=== PATIENT | male | born 1955 | race African-American/Black ===

== ENCOUNTER 2016-10-16 20:38 | Emergency (ER) | payer MEDICARE ==
[2016-02-19 07:02] VITALS: BMI 53.4
[~2016-10-16 20:38] MED LIST: ALDACTONE25 MG PO; ANUSOL-HC25 MG RC; CARAFATE1 G PO; HYDROCHLOROTHIA25 MG PO; HYDROCODON-ACE1 EAC7 PO; IPRAT-ALBUT 0.5-3 ML UPD; MOBIC7.5 MG PO; OMNICEF300 MG PO; PROAIR HFA8.5 GM INH; PROTONIX40 MG PO; SINEQUAN50 MG PO; SPIRIVA18 MCG INH; TOPROL XL100 MG PO; ULORIC40 MG PO; ZANTAC300 MG PO
[2016-10-16 21:06] LABS: BASOPHILS 0.4 % (0.0-2.0); EOSINOPHILS 0.8 % (0-7); HEMATOCRIT 38.2 % (42.0-54.0); HEMOGLOBIN 12.2 g/dL (13.5-17.5); IMMATURE GRANULOCYTES 0.1 % (0-5); LYMPHOCYTES 38.6 % (15-50); MCH 25.6 pg (26.0-34.0); MCHC 31.9 g/dL (31.0-37.0); MCV 80.3 fL (80.0-100.0); MEAN PLATELET VOLUME 10.7 fL (7.4-10.4); NEUTROPHILS 51.1 % (40-80); PLATELET COUNT 394 10x3/uL (130-400); RBC 4.76 10x6/uL (4.20-6.10); RDW 17.9 % (11.5-14.5); WBC 8.4 10x3/uL (4.8-10.8)
[2016-10-16 21:21] LABS: ALBUMIN 3.1 g/dL (3.4-5.0); ALKALINE PHOSPHATASE 152 U/L (46-116); ALT (SGPT) 51 U/L (10-68); BILIRUBIN - TOTAL 1.21 mg/dL (0.2-1.3); CALC OSMOLALITY 281 mosm/kg (275-300); CALCIUM 8.6 mg/dL (8.5-10.1); CARBON DIOXIDE 29.9 mmol/L (21.0-32.0); CHLORIDE - SERUM 103 mmol/L (98-107); CREATININE - SERUM 1.1 mg/dL (0.6-1.3); POTASSIUM - SERUM 3.5 mmol/L (3.5-5.1); PROTEIN - SERUM 7.6 g/dL (6.4-8.2); SODIUM 140 mmol/L (136-145); UREA NITROGEN 14 mg/dL (7-18); eGFR NON AFRICAN AMERICAN 73 mL/min (90-120)
[2016-10-16 21:22] LABS: GLUCOSE 127 mg/dL (74-106)
[2016-10-16 21:33] LABS: CHOL - HDL RATIO 1.4 ratio (2.3-4.9); CHOLESTEROL, TOTAL 105 mg/dL (0-200); CREATINE KINASE 534 UL (21-232); HDL CHOLESTEROL 76 mg/dL (32-96); MAGNESIUM - SERUM 1.9 mg/dL (1.8-2.4); PRO BNP 131 pg/mL (0-125); TRIGLYCERIDE 360 mg/dL (30-200); TROPONIN-I < 0.017 ng/mL (0.000-0.060)
[2016-10-17 00:50] LABS: UDS - AMPHET NEGATIVE QUAL (NEGATIVE); UDS - BARB NEGATIVE QUAL (NEGATIVE); UDS - BENZO NEGATIVE QUAL (NEGATIVE); UDS - COCAINE NEGATIVE QUAL (NEGATIVE); UDS - METH NEGATIVE QUAL (NEGATIVE); UDS - OPIATE NEGATIVE QUAL (NEGATIVE); UDS - PCP NEGATIVE QUAL (NEGATIVE); UDS - THC NEGATIVE QUAL (NEGATIVE)
[2016-10-17 01:59] LABS: CKMB 0.8 U/L (0.0-3.6); CREATINE KINASE 465 UL (21-232); TROPONIN-I 0.021 ng/mL (0.000-0.060)
== END 2016-10-17 02:15 | disposition home or self-care (01) ==
LOC: D.ER 20:38
PROVIDERS: Emergency Medicine
DX: R07.9 Chest pain, unspecified (principal); R00.0 Tachycardia, unspecified; J44.9 Chronic obstructive pulmonary disease, unspecified; G89.29 Other chronic pain; F32.9 Major depressive disorder, single episode, unspecified; K21.9 Gastro-esophageal reflux disease without esophagitis; I10 Essential (primary) hypertension

== ENCOUNTER 2016-11-14 10:32 | Emergency (ER) | payer MEDICARE ==
[2016-02-19 07:02] VITALS: BMI 53.4
[2016-11-14 11:12] LABS: BASOPHILS 0.3 % (0.0-2.0); EOSINOPHILS 0.9 % (0-7); HEMATOCRIT 35.8 % (42.0-54.0); HEMOGLOBIN 11.7 g/dL (13.5-17.5); IMMATURE GRANULOCYTES 0.4 % (0-5); LYMPHOCYTES 43.2 % (15-50); MCH 25.9 pg (26.0-34.0); MCHC 32.7 g/dL (31.0-37.0); MCV 79.2 fL (80.0-100.0); MEAN PLATELET VOLUME 9.9 fL (7.4-10.4); MONOCYTES 10.4 % (2-11); NEUTROPHILS 44.8 % (40-80); PLATELET COUNT 422 10x3/uL (130-400); RBC 4.52 10x6/uL (4.20-6.10); RDW 18.2 % (11.5-14.5); WBC 9.4 10x3/uL (4.8-10.8)
[2016-11-14 11:30] LABS: ALBUMIN 3.4 g/dL (3.4-5.0); ALKALINE PHOSPHATASE 180 U/L (46-116); ALT (SGPT) 36 U/L (10-68); CALC OSMOLALITY 279 mosm/kg (275-300); CALCIUM 8.8 mg/dL (8.5-10.1); CHLORIDE - SERUM 101 mmol/L (98-107); CREATININE - SERUM 1.1 mg/dL (0.6-1.3); GLUCOSE 109 mg/dL (74-106); POTASSIUM - SERUM 4.2 mmol/L (3.5-5.1); PROTEIN - SERUM 7.9 g/dL (6.4-8.2); SODIUM 138 mmol/L (136-145); UREA NITROGEN 21 mg/dL (7-18); eGFR NON AFRICAN AMERICAN 73 mL/min (90-120)
[2016-11-14 11:49] LABS: CHOL - HDL RATIO 2.7 ratio (2.3-4.9); CHOLESTEROL, TOTAL 199 mg/dL (0-200); CKMB 0.6 U/L (0.0-3.6); CREATINE KINASE 208 UL (21-232); HDL CHOLESTEROL 75 mg/dL (32-96); LDL CHOLESTEROL 56 mg/dL (0-100); LDL-HDL RATIO 0.7 ratio (1.5-3.5); PRO BNP 30 pg/mL (0-125); TRIGLYCERIDE 341 mg/dL (30-200); TROPONIN-I < 0.017 ng/mL (0.000-0.060)
== END 2016-11-14 19:50 | disposition home or self-care (01) ==
LOC: D.ER 10:32
PROVIDERS: Emergency Medicine
DX: I49.9 Cardiac arrhythmia, unspecified (principal); R07.9 Chest pain, unspecified; I10 Essential (primary) hypertension; F10.129 Alcohol abuse with intoxication, unspecified; J44.9 Chronic obstructive pulmonary disease, unspecified; K21.9 Gastro-esophageal reflux disease without esophagitis; I48.92 Unspecified atrial flutter

== ENCOUNTER → 2017-01-03 21:17 | Outpatient (CLI) | payer MEDICARE ==
[2016-02-19 07:02] VITALS: BMI 53.4
== END | disposition home or self-care (01) ==
LOC: D.LABREF 21:17
DX: Z20.5 Contact with and (suspected) exposure to viral hepatitis (principal)

== ENCOUNTER 2017-04-17 19:00 | Inpatient (IN) | payer MEDICARE ==
[~2017-04-17] VITALS: Ht 170.2 cm; Wt 159.1 kg
[2017-04-17 19:35] LABS: BASOPHILS 0.1 % (0-2); EOSINOPHILS 0.3 % (0-7); HEMATOCRIT 35.3 % (42.0-54.0); HEMOGLOBIN 11.2 g/dL (13.5-17.5); IMMATURE GRANULOCYTES 0.3 % (0-5); LYMPHOCYTES 15.8 % (15-50); MCH 24.7 pg (26.0-34.0); MCHC 31.7 g/dL (31.0-37.0); MCV 77.9 fL (80.0-100.0); MEAN PLATELET VOLUME 9.4 fL (7.4-10.4); MONOCYTES 11.2 % (2-11); NEUTROPHILS 72.3 % (40-80); PLATELET COUNT 439 10x3/uL (130-400); RBC 4.53 10x6/uL (4.20-6.10); RDW 18.2 % (11.5-14.5); WBC 10.1 10x3/uL (4.8-10.8)
[2017-04-17 20:04] LABS: ALBUMIN 3.3 g/dL (3.4-5.0); ALKALINE PHOSPHATASE 155 U/L (46-116); ALT (SGPT) 57 U/L (10-68); BILIRUBIN - TOTAL 0.61 mg/dL (0.2-1.3); CALC OSMOLALITY 283 mosm/kg (275-300); CALCIUM 8.7 mg/dL (8.5-10.1); CARBON DIOXIDE 27.7 mmol/L (21.0-32.0); CHLORIDE - SERUM 103 mmol/L (98-107); CREATININE - SERUM 1.8 mg/dL (0.6-1.3); GLUCOSE 120 mg/dL (74-106); POTASSIUM - SERUM 3.6 mmol/L (3.5-5.1); SODIUM 142 mmol/L (136-145); UREA NITROGEN 12 mg/dL (7-18); eGFR NON AFRICAN AMERICAN 41 mL/min (90-120)
[2017-04-17 20:15] LABS: CHOL - HDL RATIO 2.3 ratio (2.3-4.9); CHOLESTEROL, TOTAL 156 mg/dL (0-200); CKMB 0.9 U/L (0.0-3.6); CREATINE KINASE 409 UL (21-232); HDL CHOLESTEROL 69 mg/dL (32-96); LDL CHOLESTEROL 58 mg/dL (0-100); LDL-HDL RATIO 0.8 ratio (1.5-3.5); TRIGLYCERIDE 149 mg/dL (30-200)
[2017-04-17 20:20] LABS: TROPONIN-I < 0.017 ng/mL (0.000-0.060)
[2017-04-17 21:15] LABS: T4 THYROXINE 8.5 ug/dL (4.7-13.3); THYROID STIMULATING HORMONE 4.51 uIU/mL (0.36-3.74)
--- NOTE | 2017-04-17 22:21 | NUR ---
PT ARRIVED VIA STRETCHER FROM ER WITH DX UCAF. NO DISTRESS NOTED. WILL CONTINUE TO MONITOR.
[2017-04-17 22:47] VITALS: BP 143/85; Ht 170.2 cm; Wt 159.1 kg
[2017-04-17] MEDS ORDERED: ZYLOPRIM100 MG PO (23:09)
[2017-04-17] MEDS ORDERED: NEURONTIN 300300 MG PO (23:10)
[2017-04-17] MEDS ORDERED: ELAVIL25 MG PO (23:11)
[2017-04-17] MEDS ORDERED: AMOXICILLIN500 M1 PO (23:11)
[2017-04-17] MEDS ORDERED: CARDIZEM SR60 MG PO (23:11)
[2017-04-17] MEDS ORDERED: PERISOL437 ML MM (23:12)
--- NOTE | 2017-04-17 23:47 | NUR ---
ADMISSIONA ASSESSMENT, HISTORY AND HOME MED LIST COMPLETED. IV TO L HAND CARDIZEM AT 15CC/HR. VSS. A-FLUTTER PER CM HR 136. PT STATES L KNEE PAIN FROM GOUT FLARE-UP RSOLVING. PT CURRENTLY WATCHING TV. WILL CONTINUE TO MONITOR. SR UP X2, CALL LIGHT WITHIN REACH.
[2017-04-18] VITALS: BP 151/82
--- NOTE | 2017-04-18 02:28 | NUR ---
PT RESTING WITH EYES CLOSED. RESP EVEN AND REGULAR. CM DENOTES A-FLUTTER HR IN 110'S. WILL CONTINUE TO MONITRO.
--- NOTE | 2017-04-18 04:52 | NUR ---
A-FLUTTER PER CM HR 89. PT RESTING WITH EYES CLOSED. RESP EVEN AND REGULAR. SR UP X2, CALL LIGHT WITHIN REACH.
[2017-04-18 05:03] VITALS: BP 149/74
--- NOTE | 2017-04-18 06:21 | NUR ---
VSS THROUGHOUT NIGHT. PT DENIED ANY DISCOMFORT. NEEDS MET;WILL CONTINUE TO MONITOR.
[2017-04-18 08:00] VITALS: BP 123/64
[2017-04-18 12:00] VITALS: BP 112/78
--- NOTE | 2017-04-18 13:27 | NUR ---
ALERT AND ORIENTED X4. RESTING IN BED. LT HAND IV OUT LAYING ON BED TIP INTACT. RESITE IV LT HAND 22G SUCCESSFUL 1ST ATTEMPT. A-FLUTTER 140bpm ON TELEMETRY. CARDIZEM DRIP INFUSING ORDER @ 15mL/HR. DENIES ANY NEEDS. REFUSE SCDs. BED LOCKED AND LOW. CALL LIGHT IN REACH. TWO SIDERAILS UP.
[2017-04-18 16:00] VITALS: BP 109/70
--- NOTE | 2017-04-18 17:11 | NUR ---
ALERT AND ORIENTED X4. SITTING UP IN BED EATING. DECREASE CARDIZEM DRIP TO 5ml/HR PER 'S ORDER. FIRST DOSE OF MULTAQ 400mg GIVEN ORDERED. NOTIFY OF MEDICATION CHANGE PER REQUEST. DENIES ANY NEEDS. 98bpm A-FLUTTER ON TELEMETRY. BED LOCKED AND LOW. CALL LIGHT IN REACH. TWO SIDERAILS UP.
--- NOTE | 2017-04-18 19:43 | NUR ---
RESUMED CARE OF PT, LYING IN BED RESPIRATIONS EVEN AND UNLABORED ON 2LPM VIA NC. 96 FLUTTER ON TELEMETRY. LEFT HAND INFUSING CARDIZEM @ 5. COMPLAINTS OF PAIN TO FOOT AND BACK. CALL LIGHT IN REACH. WILL CONTINUE TO MONITOR. SEE NURSE ASSESSMENT.
--- NOTE | 2017-04-18 22:22 | NUR ---
NIGHT MEDS GIVEN, CALL LIGHT IN REACH. WILL CONTINUE TO MONITOR.
[2017-04-18 23:00] VITALS: BP 150/67
--- NOTE | 2017-04-19 00:45 | NUR ---
LYING IN BED WITH EYES CLOSED, CALL LIGHT IN REACH. WILL CONTINUE TO MONITOR.
--- NOTE | 2017-04-19 04:23 | NUR ---
CO FOUNDER AT BEDSIDE TO OBTAIN VITALS, CALL LIGHT IN REACH. WILL CONTINUE WITH PLAN OF CARE.
[2017-04-19 05:36] VITALS: BP 160/87
--- NOTE | 2017-04-19 06:37 | NUR ---
NO CHANGES FROM PREVIOUSE ASSESSMENT, CALL LIGHT IN REACH.
[2017-04-19 08:00] VITALS: BP 150/65
[2017-04-19 08:05] LABS: BASOPHILS 0 % (0-2); EOSINOPHILS 0 % (0-7); HEMATOCRIT 33.7 % (42.0-54.0); HEMOGLOBIN 10.5 g/dL (13.5-17.5); IMMATURE GRANULOCYTES 0.4 % (0-5); LYMPHOCYTES 6.6 % (15-50); MCH 24.6 pg (26.0-34.0); MCHC 31.2 g/dL (31.0-37.0); MCV 78.9 fL (80.0-100.0); MEAN PLATELET VOLUME 9.2 fL (7.4-10.4); MONOCYTES 5.7 % (2-11); NEUTROPHILS 87.3 % (40-80); PLATELET COUNT 388 10x3/uL (130-400); RBC 4.27 10x6/uL (4.20-6.10); RDW 18.4 % (11.5-14.5); WBC 18.6 10x3/uL (4.8-10.8)
[2017-04-19 08:23] LABS: BILIRUBIN - TOTAL 0.33 mg/dL (0.2-1.3); CALCIUM 8.9 mg/dL (8.5-10.1); CARBON DIOXIDE 30.3 mmol/L (21.0-32.0); PROTEIN - SERUM 7.7 g/dL (6.4-8.2)
[2017-04-19 08:26] LABS: ANION GAP 10.9 mmol/L (8-16); CREATININE - SERUM 1.2 mg/dL (0.6-1.3); POTASSIUM - SERUM 4.2 mmol/L (3.5-5.1)
[2017-04-19 11:55] VITALS: BP 147/90
--- NOTE | 2017-04-19 13:34 | NUR ---
LYING QUIETLY WITH EYES CLOSED. CARDIZEN IN FUSING WELL. SR UP WITH CALL LIGHT IN REACH
--- NOTE | 2017-04-19 15:54 | NUR ---
EYES CLOSED. NO DISTRESS NOTED. RESP REG AND NON LABORED. TELEMERTY SHOWS FLUTTER. WILL MONITOR
[2017-04-19 16:00] VITALS: BP 140/74
--- NOTE | 2017-04-19 20:18 | NUR ---
INITIAL ROUNDS, PT RESTING IN BED WITH VISITORS X 2 AT BEDSIDE. TELEMETRY FLUTTER. O2 @ 2L/NC WITH NONLABORED RESPIRATIONS. CARDIZEM DRIP AT 5ML/HR TO LEFT HAND. SEE ASSESSMENT, MONITOR AND CPOC.
[2017-04-19 21:01] VITALS: BP 168/77
[2017-04-20 01:04] VITALS: BP 154/87
--- NOTE | 2017-04-20 03:45 | NUR ---
0226 MEDICATED WITH DILAUDID 1 MG SIVP FOR GENERALIZED PAIN/DISCOMFORT AFTER HAVING RECIEVED A BATH WITH THAI MASSEUR ASSISTANCE. HE IS NOW RESTING IN BED WITH EYES CLOSED. NO FURTHER NEEDS VOICED. CPOC.
[2017-04-20 04:18] VITALS: BP 130/80
[2017-04-20 04:36] LABS: BASOPHILS 0.1 % (0-2); EOSINOPHILS 0.2 % (0-7); HEMATOCRIT 34.1 % (42.0-54.0); HEMOGLOBIN 10.5 g/dL (13.5-17.5); LYMPHOCYTES 17.9 % (15-50); MCH 24.5 pg (26.0-34.0); MCHC 30.8 g/dL (31.0-37.0); MCV 79.5 fL (80.0-100.0); MEAN PLATELET VOLUME 9.6 fL (7.4-10.4); MONOCYTES 8.2 % (2-11); NEUTROPHILS 72.6 % (40-80); PLATELET COUNT 390 10x3/uL (130-400); RBC 4.29 10x6/uL (4.20-6.10); RDW 18.4 % (11.5-14.5); WBC 14.5 10x3/uL (4.8-10.8)
[2017-04-20 04:52] LABS: ALBUMIN 2.9 g/dL (3.4-5.0); ANION GAP 9.9 mmol/L (8-16); BILIRUBIN - TOTAL 0.23 mg/dL (0.2-1.3); CALCIUM 8.5 mg/dL (8.5-10.1); CARBON DIOXIDE 29.8 mmol/L (21.0-32.0); CREATININE - SERUM 1.3 mg/dL (0.6-1.3); POTASSIUM - SERUM 3.7 mmol/L (3.5-5.1); PROTEIN - SERUM 7.2 g/dL (6.4-8.2)
[2017-04-20 08:00] VITALS: BP 127/81
--- NOTE | 2017-04-20 10:51 | NUR ---
ALERT AND ORIENTED X4. RESTING IN BED. LT HAND IV INFILTRATED. DC LT HAND IV TIP INTACT. MENTAL HEALTH SPECIALIST RESITE IV 20G TO RT HAND. CARDIZEM DRIP CONTINUED INFUSING ORDERED. A-FLUTTER 100bpm ON TELEMETRY. DENIES ANY NEEDS. BED LOCKED AND LOW. CALL LIGHT IN REACH. TWO SIDERAILS UP. REFUSE SCDs.
[2017-04-20 12:00] VITALS: BP 141/68
--- NOTE | 2017-04-20 13:15 | NUR ---
Nutrition note: Provided pt with printed weight loss diet information. Pt is on the phone and did not want to talk at this time. RDN following.
[2017-04-20 16:00] VITALS: BP 150/63
--- NOTE | 2017-04-20 17:02 | NUR ---
ALERT AND ORIENTED X4. RESTING IN BED. PAIN MANAGEMENT FOR CHRONIC LEG PAIN CONTINUED. CARDIZEM INFUSING AT 5mL/HR. A-FLUTTER 123bpm ON TELEMETRY. DENIES ANY NEEDS. BED LOCKED AND LOW. CALL LIGHT IN REACH. TWO SIDERAILS UP.
--- NOTE | 2017-04-20 19:35 | NUR ---
ASSESSMENT COMPLETE, A&O. RESPERATIONS EVEN ON AT 2 LITER VIA NC. IV TO RIGHT HAND WITH CARDIZEM INFUSING AT 5 CC/HR. SITE C/D/I. PT DENIES PAIN OR NEEDS, BED LOW, CL IN REACH.
--- NOTE | 2017-04-20 20:22 | NUR ---
READING GLASSES GIVEN AT PT REQUEST.
--- NOTE | 2017-04-20 22:14 | NUR ---
HS MEDS GIVEN WITH FRESH ICE WATER, PT DENIES PAIN OR NEEDS, BED LOW, CL IN REACH.
--- NOTE | 2017-04-20 23:46 | NUR ---
CULTURE ROOM WORKER AT BEDSIDE TO OBTAIN VITALS, CALL LIGHT IN REACH. WILL CONTINUE WITH PLAN OF CARE.
[2017-04-21] VITALS: BP 170/85
--- NOTE | 2017-04-21 02:55 | NUR ---
RESTING WITH EYES CLOSED, RESPERATIONS EVEN, NO S/S DISTRESS NOTED.
--- NOTE | 2017-04-21 03:21 | NUR ---
DILAUDID 1 MG GIVEN FOR C/O PAIN TO BACK, RATES PAIN AT AN 8 PAIN SCALE.
[2017-04-21 04:00] VITALS: BP 139/70
[2017-04-21] MEDS ORDERED: MULTAQ400 MG PO (07:36)
[2017-04-21] MEDS ORDERED: XARELTO20 MG PO (07:37)
--- NOTE | 2017-04-21 07:39 | NUR ---
AM ROUNDS- PT IN BED, WATCHING TV, DENIES ANY NEEDS AT THIS TIME. CALL LIGHT IN REACH, RT HAND IV INFUSING CARDIZEM AT 5CC/HR. BED LOW AND WHEELS LOCKED, BED RAILS X2, NAD NOTED, WILL CONTINUE TO MONITOR.
--- NOTE | 2017-04-21 07:58 | NUR ---
ONE TIME ORDER FOR STACEY PER DR. COY.
--- NOTE | 2017-04-21 08:14 | NUR ---
AM MEDS GIVEN, PT IN BED, EATING BREAKFAST, DENIES ANY NEEDS AT THIS TIME. CALL LIGHT IN REACH, NAD NOTED, WILL CONTINUE TO MONITOR.
[2017-04-21 08:22] VITALS: BP 137/70
--- NOTE | 2017-04-21 10:47 | NUR ---
Patient Name: CALOS HAAS Admission Status: ER Accout number: [id number] Admission Date: 04-18-2017 : 1955 Admission Diagnosis:CHEST PAIN, UNSPECIFIED Attending: LEO Current LOS: 3 Anticipated DC Date: 04-21-2017 Planned Disposition: Home Primary Insurance: [facility] Discharge Planning Comments: * Is the patient Alert and Oriented? Yes 0 * How many steps to enter\exit or inside your home? 12 0 * PCP DR. COY 0 * Pharmacy [facility] 0 * Preadmission Environment Home with Family 0 * ADLs Independent 0 * Equipment Other 0 * Other Equipment BACK, SHOULDER AND KNEE BRACE - [employer]IL [employer] NO LOCAL MEDICAL EQUIPMENT PROVIDER PREFERENCE 0 * List name and contact numbers for known caregivers / representatives who currently or will assist patient after discharge: KE OWUSU, SISTER, LOTUS SAUER, SIG. OTHER, 0 * Community resources currently utilized None 0 * Please name any agencies selected above. NONE 0 * Additional services required to return to the preadmission environment? No 0 * Can the patient safely return to the preadmission environment? Yes 0 * Has this patient been hospitalized within the prior 30 days at any hospital? No 0 CM MET WITH PT IN ROOM TO DISCUSS DISCHARGE PLANNING AND NEEDS. PT REPORTS LIVING AT HOME INDEPENDENTLY WITH SIGNIFICANT OTHER AND TWO SMALL CHILDREN. PT HAS NO MEDICAL EQUIPMENT AND NO OUTSIDE SERVICES ASSISTING IN THE HOME. PT HAS RECEIVED A BACK, SHOULDER AND KNEE BRACE PAID FOR BY MEDICARE, HE WILL START USING THEM AFTER GETTING HOME FROM HOSPITAL. CM DISCUSSED AVAILABILITY OF HOME HEALTH, REHAB SERVICES AND MEDICAL EQUIPMENT. PT DENIES DISCHARGE NEEDS, REPORTS HIS SIGNIFICANT OTHER WILL PICK HIM UP FOR DISCHARGE HOME. IMPORTANT MESSAGE FROM MEDICARE PROVIDED AND EXPLAINED. PT REPORTS HIS HOME SITUATION HAS STABLALIZED AND HE IS NOT USING DRUGS OR ALCOHOL. PT REPORTS HE WILL START TO EXERCISE SINCE RECEIVING HIS BRACES AND TRY TO GET HIS WEIGHT DOWN. NO NEED IDENTIFIED BY CM AT THIS TIME. Casket Coverer: Van Hadley
--- NOTE | 2017-04-21 11:02 | NUR ---
PROVIDED VERBAL AND WRITTEN DISHCHARGE ORDER TO PT, PT VERBALIZED UNDERSTANDING REGARING DISCHAGE TEACHING. D/C RT HAND IV, TIP INTACT. MONITOR TAKEN OFF AND TAKEN TO BLOCK ENGRAVER. PT WILL NOTIFY NURSE OR CHIEF OF FIELD OPERATIONS WHEN READY FOR WHEELCHAIR, NAD NOTED, WILL CONTINUE TO MONITOR.
--- NOTE | 2017-04-21 11:47 | NUR ---
PT LEFT UNIT VIA AMBULATORY, ACCOMPANIED BY FAMILY. NAD NOTED.
== END 2017-04-21 11:48 | disposition home or self-care (01) | DRG 310 ==
LOC: D.ER 19:00 → D.M2 21:09 → OBSVTIME 21:09 → D.M2 04-18 08:17
PROVIDERS: Emergency Medicine; ADMIT Family Medicine
DX: I48.92 Unspecified atrial flutter (principal); I48.91 Unspecified atrial fibrillation; I47.1 Supraventricular tachycardia; J44.9 Chronic obstructive pulmonary disease, unspecified; I10 Essential (primary) hypertension; F32.9 Major depressive disorder, single episode, unspecified; F41.9 Anxiety disorder, unspecified

== ENCOUNTER 2017-05-27 13:03 | Inpatient (IN) | payer MEDICARE ==
[~2017-05-27] VITALS: Ht 170.2 cm; Wt 159.1 kg
--- NOTE | ~2017-05-27 | DS ---
PATIENT:CALOS HAAS :[birth year] MEDICAL RECORD: [id number] DISCHARGE SUMMARY ADMISSION DATE: 05/28/17 DISCHARGE DATE: 05/29/17 DATE OF ADMISSION: 05/28/2017 DATE OF DISCHARGE: 05/29/2017 ADMISSION DIAGNOSES: Atrial fibrillation with rapid ventricular response, chronic back pain and anemia, unclear etiology. DISCHARGE DIAGNOSES: Atrial fibrillation with rapid ventricular response, chronic back pain and anemia, stable, unclear etiology, we will workup as outpatient. HOSPITAL COURSE: The patient was admitted to the Emergency Room. He came in for back pain and a reported gout flare, was found to be tachycardic with an irregularly irregular rhythm, was admitted, cardiology consulted, his medications were adjusted. He has a history of chronic AFib. He is on anticoagulation as well as antiarrhythmics. Medications were adjusted by cardiology. Rate is now controlled. He is anxious to go home. Discussed case with Dr. Gama, cardiology, agrees with the discharge. The patient will followup with Dr. Ferrer, his primary care physician, on Tuesday. He is feeling much better. PHYSICAL EXAMINATION: VITAL SIGNS ON DISCHARGE: Temperature 97.9, heart rate 98, respirations 18, blood pressure 165/98, has been in the 140s, and O2 sats 96% on room air. GENERAL: Alert, oriented, in no distress. HEART: Irregularly irregular, rate controlled. LUNGS: Clear. ABDOMEN: Soft, morbidly obese. Bowel sounds positive. EXTREMITIES: Present times 4. NEUROLOGIC: Intact. The patient again is anxious for discharge. He is discharged in stable and improved condition. MEDICATIONS: Per med rec. He will follow up with Dr. Ferrer on Tuesday. Return to the ER with worsening symptoms. TRANSINT:[id number] Voice Confirmation ID: [id number] DOCUMENT ID: [id number] SAUL ROBERTSON DO CC: [id number] DICTATION DATE: 05/29/17 1305 SECURITY SME: 05/29/172 DIS IN 05/29/17 [id number] [place] [address]
[~2017-05-27 13:03] MED LIST changes: +AMOXICILLIN500 M1 PO; +CARDIZEM SR60 MG PO; +ELAVIL25 MG PO; +MULTAQ400 MG PO; +NEURONTIN 300300 MG PO; +PERISOL437 ML MM; +XARELTO20 MG PO; +ZYLOPRIM100 MG PO
[2017-05-27 14:48] LABS: BASOPHILS 0.2 % (0-2); EOSINOPHILS 1.5 % (0-7); HEMOGLOBIN 9.8 g/dL (13.5-17.5); IMMATURE GRANULOCYTES 0.4 % (0-5); MCH 23.7 pg (26.0-34.0); MCHC 30.6 g/dL (31.0-37.0); MCV 77.3 fL (80.0-100.0); MEAN PLATELET VOLUME 10.4 fL (7.4-10.4); MONOCYTES 13.7 % (2-11); NEUTROPHILS 65.2 % (40-80); PLATELET COUNT 365 10x3/uL (130-400); RBC 4.14 10x6/uL (4.20-6.10); RDW 19.5 % (11.5-14.5); WBC 10.8 10x3/uL (4.8-10.8)
[2017-05-27 15:03] LABS: INR 2.98 (0.85-1.17); PROTIME 31.2 SECONDS (11.6-15.0)
[2017-05-27 15:04] LABS: D-DIMER-QUANTITATIVE 0.34 ug/mLFEU (0.20-0.54)
[2017-05-27 15:22] LABS: ALBUMIN 3.2 g/dL (3.4-5.0); ALKALINE PHOSPHATASE 115 U/L (46-116); ALT (SGPT) 23 U/L (10-68); BILIRUBIN - TOTAL 0.19 mg/dL (0.2-1.3); CALC OSMOLALITY 273 mosm/kg (275-300); CALCIUM 8.3 mg/dL (8.5-10.1); CHLORIDE - SERUM 101 mmol/L (98-107); CREATININE - SERUM 1.4 mg/dL (0.6-1.3); GLUCOSE 102 mg/dL (74-106); POTASSIUM - SERUM 3.8 mmol/L (3.5-5.1); PROTEIN - SERUM 7.3 g/dL (6.4-8.2); SODIUM 137 mmol/L (136-145); UREA NITROGEN 12 mg/dL (7-18); eGFR NON AFRICAN AMERICAN 55 mL/min (90-120)
[2017-05-27 15:36] LABS: CKMB 0.3 U/L (0.0-3.6); CREATINE KINASE 256 UL (21-232); PRO BNP 102 pg/mL (0-125); THYROID STIMULATING HORMONE 1.13 uIU/mL (0.36-3.74); TROPONIN-I < 0.017 ng/mL (0.000-0.060)
[2017-05-27 20:18] LABS: APPEARANCE CLEAR (CLEAR); BILIRUBIN NEGATIVE (NEGATIVE); COLOR YELLOW (YELLOW); GLUCOSE NEGATIVE (NEGATIVE); KETONE NEGATIVE (NEGATIVE); LEUKOCYTE ESTERASE NEGATIVE (NEGATIVE); NITRITE NEGATIVE (NEGATIVE); PROTEIN NEGATIVE (NEGATIVE); SPECIFIC GRAVITY 1.015 (1.005-1.020); UROBILINOGEN NORMAL (NORMAL)
[2017-05-27 20:28] LABS: UDS - AMPHET NEGATIVE QUAL (NEGATIVE); UDS - BARB NEGATIVE QUAL (NEGATIVE); UDS - BENZO NEGATIVE QUAL (NEGATIVE); UDS - COCAINE NEGATIVE QUAL (NEGATIVE); UDS - METH NEGATIVE QUAL (NEGATIVE); UDS - OPIATE NEGATIVE QUAL (NEGATIVE); UDS - PCP NEGATIVE QUAL (NEGATIVE); UDS - THC NEGATIVE QUAL (NEGATIVE)
[2017-05-27 22:45] VITALS: BP 142/90; Ht 170.2 cm; Wt 159.1 kg
[2017-05-28 04:00] VITALS: BP 121/61
[2017-05-28 08:00] VITALS: BP 181/75
--- NOTE | 2017-05-28 08:20 | NUR ---
ASSESSMENT DONE. DENIES NEEDS.
--- NOTE | 2017-05-28 10:21 | NUR ---
IV PATENT. CALL LIGHT IN REACH. WILL CONT. PLAN OF CARE.
[2017-05-28 12:00] VITALS: BP 156/78
[2017-05-28 16:00] VITALS: BP 147/78
--- NOTE | 2017-05-28 16:59 | NUR ---
WITHOUT CHANGES OR DISTRESS NOTED AT THIS TIME. DENIES NEEDS.
--- NOTE | 2017-05-28 18:31 | HP ---
PATIENT: CALOS HAAS MEDICAL RECORD: [id number] ACCOUNT: [id number] LOCATION:[address] : [birth year] ADMISSION DATE: 05/28/17 HISTORY AND PHYSICAL EXAMINATION HISTORY OF PRESENT ILLNESS: A 61-year-old -Lib[place] male presented to the Emergency Room with exacerbation of gout. He also has a history of chronic back pain, sees pain management. He is on hydrocodone for pain management. He has a history of paroxysmal atrial fibrillation, received pain medicine in the ER with anticipation for discharge, was found to be in AFib with RVR. Denied chest pain, was admitted for cardiac bowel and conversion. PAST MEDICAL HISTORY: Significant for paroxysmal atrial fibrillation, chronic back pain, gout, COPD, neuropathy, hypertension, GERD. CURRENT MEDICATIONS: Albuterol inhaler, Xarelto, Diltiazem SR 60 mg q.8 hours, Multaq 400 mg b.i.d., Elavil 25 mg at bedtime, Neurontin 300 mg t.i.d., Bird In Hand 325 mg q.8 hours p.r.n., hydrochlorothiazide 25 mg daily, Peroxyl mouthwash, Protonix 40 mg daily, Anusol suppositories p.r.n. hemorrhoids, allopurinol 100 mg daily. REVIEW OF SYSTEMS: GENERAL: No reported change in weight or appetite. HEENT: No cephalgia, visual changes, tinnitus, epistaxis or dysphagia. CARDIOVASCULAR: Atrial fibrillation with rapid ventricular response, recurrent episodes. PULMONARY: Denies hemoptysis, denies night sweats. History of COPD, controlled with medications. GASTROINTESTINAL: Denies hematemesis, hematochezia or melena. GENITOURINARY: Denies dysuria. MUSCULOSKELETAL: Recurrent gout flares. PHYSICAL EXAMINATION: VITAL SIGNS: Temperature 99, blood pressure 156/78, heart rate 115 and regular, respirations 18, O2 sats 95%. GENERAL: Alert and oriented, in no present distress. HEENT: Head is normocephalic, atraumatic. Eyes: Pupils are equally round and reactive to light and accommodation. Extraocular muscles intact. Conjunctiva was not injected. Ears: Canals patent, TMs are intact. Nose: Nares patent without drainage. Throat: No erythema, no exudates. NECK: Supple. No lymphadenopathy, no JVD. HEART: Irregular, irregular. LUNGS: Clear to auscultation bilaterally. Breathing is nonlabored. ABDOMEN: Soft, obese, nontender. Bowel sounds all 4 quadrants. EXTREMITIES: Present times 4. Trace edema. No erythema. Diffuse tenderness. LABORATORY DATA: Urine drug screen negative. Urinalysis yellow, clear, normal UA. CBC: White count 10.8, hemoglobin 9.8, hematocrit 32, platelets 365. PT is 31.2. INR is 2.98. D-dimer is 0.34. Chemistry shows sodium of 137, potassium 3.8, chloride 101, bicarb 31, BUN 12, creatinine 1.4. AST 22, ALT 23, alkaline phosphatase 115. CK 256, CK-MB 0.3, troponin less than 0.017. ProBNP 102. TSH is 1.13. IMAGING DATA: Venous Doppler is negative lower extremity. Chest x-ray: Heart size is normal, increased interstitial markings bilaterally. No other HISTORY AND PHYSICAL [id number] CALOS HAAS RAY significant changes. ASSESSMENT AND PLAN: 1. Atrial fibrillation with rapid ventricular response. Cardiology consulted. Cardizem drip. 2. Chronic back pain reported gout flare. We will check uric acid. Continue hydrocodone 5 mg q.8 hours p.r.n. 3. Anemia with hemoglobin of 9.8, unclear etiology. Check stool for occult blood. Monitor. Supportive care. TRANSINT:[id number] Voice Confirmation ID: [id number] DOCUMENT ID: [id number] SAUL ROBERTSON DO at 1831 CC: [id number] DICTATION DATE: 05/28/17 1341 OPTICAL WORKER: 05/28/17 1640 ADM IN [id number] [place] [address]
[2017-05-28 19:00] VITALS: BP 107/62
--- NOTE | 2017-05-28 20:16 | NUR ---
INITIAL ROUNDS COMPLETED AT 1910 HRS. PT DENIED ANY DSIOCMFORT. ASESSMENT COMPLETED AT 1945HRS. A-FLUTTER PER CM HR 122. IV TO R HAND WITH CARDIZEM AT 10CC/HR. IV PATENT. 1+ PEDAL EDEMA NOTED. WILL CONTINUE TO MONITOR. SR UP X2, CALL LIGHT WITHINREACH.
--- NOTE | 2017-05-28 22:10 | NUR ---
PM MEDS GIVNE. NORCO 5/325 PO GIVEN AT THAT TIME FOR C/O CHRONIC BACK PAIN. PT CURRENT WATCHNG TV. NO DISTRESS NOTED BUT PT STATES PAIN LEVEL /10. WILL CONTINUE TO MONITOR. SR UP X2, CALL LIGHT WITHIN REACH.
[2017-05-29] VITALS: BP 164/74
--- NOTE | 2017-05-29 00:06 | NUR ---
PT AWAKE; NO DISTRESS NOTED. WILL CONTINUE TO MONITOR.
--- NOTE | 2017-05-29 02:07 | NUR ---
PT RESTING WITH EYES CLOSED. RESP EVEN AND REGULAR. SR UP X2, CALL LIGHT WITHIN REACH.
[2017-05-29 04:00] VITALS: BP 156/83
--- NOTE | 2017-05-29 04:03 | NUR ---
PT RESTING WITH EYES CLOSED. RESP EVEN AND REGULAR. SR UP X2, CALL LIGHT WITHIN REACH.
[2017-05-29 05:33] LABS: BASOPHILS 0.1 % (0-2); EOSINOPHILS 0 % (0-7); HEMATOCRIT 31.2 % (42.0-54.0); HEMOGLOBIN 9.6 g/dL (13.5-17.5); IMMATURE GRANULOCYTES 0.9 % (0-5); LYMPHOCYTES 12.8 % (15-50); MCH 23.4 pg (26.0-34.0); MCHC 30.8 g/dL (31.0-37.0); MCV 76.1 fL (80.0-100.0); MEAN PLATELET VOLUME 9.9 fL (7.4-10.4); MONOCYTES 9.7 % (2-11); NEUTROPHILS 76.5 % (40-80); PLATELET COUNT 430 10x3/uL (130-400); RDW 19.3 % (11.5-14.5)
[2017-05-29 05:42] LABS: WBC 16.2 10x3/uL (4.8-10.8)
[2017-05-29 05:59] LABS: INR 1.25 (0.85-1.17); PROTIME 15.6 SECONDS (11.6-15.0)
[2017-05-29 06:01] LABS: ANION GAP 9.6 mmol/L (8-16); CALCIUM 8.6 mg/dL (8.5-10.1); CARBON DIOXIDE 29.3 mmol/L (21.0-32.0); CREATININE - SERUM 1.2 mg/dL (0.6-1.3); MAGNESIUM - SERUM 2.2 mg/dL (1.8-2.4); POTASSIUM - SERUM 3.9 mmol/L (3.5-5.1)
--- NOTE | 2017-05-29 06:18 | NUR ---
VSS THROUGHOUT NIGHT. A-FLUTTER PER CM. PT STATED NORCO HELPED CONTROL CHRONIC BACK PAIN. NEEDS MET; WILL CONTINUE TO MONITOR.
--- NOTE | 2017-05-29 07:17 | NUR ---
ASSESSMENT DONE. DENIES NEEDS.
[2017-05-29 08:00] VITALS: BP 165/98
--- NOTE | 2017-05-29 09:38 | NUR ---
RESTS WITH EYES CLOSED. IV PATENT. CALL LIGHT IN REAC. WILL CONT. PLAN OF CARE.
[2017-05-29] MEDS ORDERED: CARDIZEM60 MG PO (12:57)
--- NOTE | 2017-05-29 14:05 | NUR ---
DC GIVEN TO PT
--- NOTE | 2017-05-29 14:28 | NUR ---
DC HOME PER PERSONAL CAR
== END 2017-05-29 14:28 | disposition home or self-care (01) | DRG 310 ==
LOC: D.ER 13:03 → OBSVTIME 20:23 → D.M2 20:23
PROVIDERS: Family Medicine; Nurse Practitioner Family; ADMIT Family Medicine
DX: I48.92 Unspecified atrial flutter (principal); Z79.01 Long term (current) use of anticoagulants; I48.2 Chronic atrial fibrillation; G89.29 Other chronic pain; M54.9 Dorsalgia, unspecified; D64.9 Anemia, unspecified; R00.0 Tachycardia, unspecified; J44.9 Chronic obstructive pulmonary disease, unspecified; K21.9 Gastro-esophageal reflux disease without esophagitis; G62.9 Polyneuropathy, unspecified; I10 Essential (primary) hypertension

== ENCOUNTER 2017-07-17 07:25 | Inpatient (IN) | payer MEDICARE ==
[~2017-07-17 07:25] MED LIST changes: +AMITRIPTYLINE H50 MG PO; +CARDIZEM60 MG PO; -ELAVIL25 MG PO
[2017-07-17 07:53] LABS: BASOPHILS 0.2 % (0-2); EOSINOPHILS 0.2 % (0-7); HEMOGLOBIN 9.7 g/dL (13.5-17.5); IMMATURE GRANULOCYTES 0.3 % (0-5); LYMPHOCYTES 9.3 % (15-50); MCH 21.3 pg (26.0-34.0); MCHC 31.3 g/dL (31.0-37.0); MCV 68.1 fL (80.0-100.0); MONOCYTES 7.3 % (2-11); NEUTROPHILS 82.7 % (40-80); PLATELET COUNT 619 10x3/uL (130-400); RBC 4.55 10x6/uL (4.20-6.10); RDW 20.8 % (11.5-14.5); WBC 12.3 10x3/uL (4.8-10.8)
[2017-07-17 08:04] LABS: ALBUMIN 3.2 g/dL (3.4-5.0); ALKALINE PHOSPHATASE 163 U/L (46-116); ALT (SGPT) 50 U/L (10-68); BILIRUBIN - TOTAL 0.54 mg/dL (0.2-1.3); CALC OSMOLALITY 270 mosm/kg (275-300); CALCIUM 8.2 mg/dL (8.5-10.1); CARBON DIOXIDE 19.6 mmol/L (21.0-32.0); CHLORIDE - SERUM 97 mmol/L (98-107); CREATININE - SERUM 1.3 mg/dL (0.6-1.3); POTASSIUM - SERUM 4.2 mmol/L (3.5-5.1); PROTEIN - SERUM 7.9 g/dL (6.4-8.2); SODIUM 136 mmol/L (136-145); UREA NITROGEN 15 mg/dL (7-18); eGFR NON AFRICAN AMERICAN 60 mL/min (90-120)
[2017-07-17 08:06] LABS: GLUCOSE 69 mg/dL (74-106)
[2017-07-17 08:43] LABS: CKMB 2.2 U/L (0.0-3.6); CREATINE KINASE 765 UL (21-232); PRO BNP 79 pg/mL (0-125)
--- NOTE | 2017-07-17 10:00 | NUR ---
RECEIVED PT TO ROOM 2121 FROM ER AAOX4 RESP NOTED SLIGHTLY SOB O2 ON 2LPM NC SKIN W/D COLOR WNL SALINE LOCK INTACT TO RAC WITHOUT REDNESS OR EDEMA OCCLUSIVE DRSG INTACT HR 140s DENIES ANY PAIN AT THIS TIME
[2017-07-17] MEDS ORDERED: ULORIC40 MG PO (10:35)
[2017-07-17] MEDS ORDERED: MOBIC7.5 MG PO (10:35)
[2017-07-17] MEDS ORDERED: LOTRISONE CREAM45 GM TOPICAL (10:35)
[2017-07-17 10:43] VITALS: BP 142/80; BMI 54.6
[2017-07-17 12:42] VITALS: BP 175/80
--- NOTE | 2017-07-17 13:34 | NUR ---
LYING QUIETLY. DENIES ANY NEEDS. WILL MONITOR
[2017-07-17 16:39] VITALS: BP 199/92
--- NOTE | 2017-07-17 17:41 | NUR ---
LYING QUIETY. DENIES ANY NEEDS. CALL LIGHT I REACH. WILL MONITOR
--- NOTE | 2017-07-17 19:45 | NUR ---
PT AWAKE AND SITTING ON SIDE OF BED. HE HAS SPILLED URINE ON HIS BED. HIS TELEMETRY IS OFF, HIS GOWN IS BARELY ON HIM. IV TO RIGHT A/C WITH NS @ 10ML/HR AND CARDIZEM AT 10ML/HR INFUSING. PT ASSISTED TO CLEAN UP /CHANGE GOWN AND NEW LINENS PLACED ON BED. TELEMETRY 133/FLUTTER.
[2017-07-17 20:00] VITALS: BP 141/84
--- NOTE | 2017-07-17 20:42 | NUR ---
PAGE TO DR SUH TO REPORT THAT ORIGINAL ORDER FOR CARDIZEM PER ER MD WAS FOR ONE BAG ONLY. NEW ORDER RECIEVED FOR CARDIZEM TO BE CONTINUED AT 15ML/HR AND ALSO GIVEN OK TO CONTINUE HOME MED OF ELAVIL.
--- NOTE | 2017-07-17 22:31 | NUR ---
RESTING IN BED WITH NO DISTRESS. WATCHING TV. FAMILY X 1 AT BEDSIDE. BEDTIME MEDS GIVEN NEURONTIN, ELAVIL AND A REQUESTED HYDROCODONE FOR GENERALIZED PAIN. CARDIZEM DRIP IS NOW INFUSING AT 15ML/HR PER NEW ORDER FROM DR SUH. PT STILL UNCONTROLLED AFLUTTER 130'S PER TELEMETRY. WILL MONITOR.
--- NOTE | 2017-07-17 23:15 | NUR ---
PT'S FAMILY MEMBER CAME OUT OF ROOM AND STATED "HE ROLLED OUT OF BED". STAFF IMMEDIATELY TO ROOM AND FOUND PT LYING ON THE GROUND, CLOSEST TO HIS BATHROOM DOOR. PT ASSESSED. HE TELLS STAFF HE WAS ASLEEP AND "JUST ROLLED OFF THE BED". DENIES PAIN OR DISCOMFORT. STATES HE LANDED ON HIS LEFT HAND, BUT DENIES PAIN OR ANY NEED FOR XRAYS AT THIS TIME. PT IS INDEPENDENT, FEELS THAT THE PROBLEM IS THE BED IS TO NARROW, PLUS HE IS A VERY LARGE MAN. DISCUSSED OBTAINING A VITO BED FOR PATIENT AND HE SAID HE DID NOT WANT THAT. AGREEMENT MADE TO RAISE BOTH LONG RAILS ON BEDSIDE FOR THE TIME THAT HE IS ASLEEP AND UPPER SHORT RAILS ARE DOWN, TO PREVENT BEING CONSIDERED A RESTRAINT. PT STATES HE WILL CALL WHEN HE NEEDS HIS RAIL DOWN TO GO TO THE BATHROOM. INSTRUCTED PT THAT IF HE DETERMINES HE IS HURTING AT A LATER TIME, THEN LET STAFF KNOW AND CARE WILL BE PROVIDED.
[2017-07-18] VITALS: BP 136/61
[2017-07-18 04:00] VITALS: BP 131/63
--- NOTE | 2017-07-18 06:40 | NUR ---
PT AWAKENED FROM SLEEPING THROUGH THE NIGHT AND REQUESTED TO TALK TO PRIMARY NURSE. PT TELLS NURSE THAT UPON AWAKENING, HE REALIZED THAT HE DID HURT FROM ROLLING OUT OF BED LAST NIGHT AND FEELS HE SHOULD GO AHEAD AND GET XRAYS OF HIS LOWER BACK AND HIS LEFT WRIST/FOREARM. CALL TO DR SUH AND NOTIFIED OF PT'S REQUEST FOR XRAYS RELATED TO HIM ROLLING OUT OF BED. ORDERS RECIEVED. ALSO LET MD KNOW THAT PT HAD BEEN OFFERED A LARGER SIZE BED AT TIME OF INCIDENT AND HAD DECLINED IT, INSTEAD OPTING TO PUT BOTH SIDE RAILS UP X 2.
[2017-07-18 08:00] VITALS: BP 159/78
--- NOTE | 2017-07-18 08:05 | NUR ---
BACK FROM X-RAY BY W/C. WILL CONT. PLAN OF CARE.
--- NOTE | 2017-07-18 08:14 | NUR ---
ASSESSMENT DONE. DENIES NEEDS.
[2017-07-18 12:00] VITALS: BP 165/76
[2017-07-18 16:00] VITALS: BP 102/68
--- NOTE | 2017-07-18 17:26 | NUR ---
WITHOUT CHANGES OR DISTRESS NOTED AT THIS TIME. DENIES NEEDS.
--- NOTE | 2017-07-18 18:07 | NUR ---
Patient Name: CALOS HAAS Admission Status: ER Accout number: [id number] Admission Date: 07-18-2017 : 1955 Admission Diagnosis: Attending: SARINA SUH Current LOS: 1 Anticipated DC Date: 07-19-2017 Planned Disposition: Home Primary Insurance: [facility] Discharge Planning Comments: * Is the patient Alert and Oriented? Yes 0 * How many steps to enter\exit or inside your home? 12 0 * PCP DR. COY 0 * Pharmacy [facility] 0 * Preadmission Environment Home with Family 0 * ADLs Independent 0 * Equipment Other 0 * Other Equipment BACK, SHOULDER AND KNEE BRACE NO LOCAL MEDICAL EQUIPMENT PROVIDER PREFERENCE 0 * List name and contact numbers for known caregivers / representatives who currently or will assist patient after discharge: KE OWUSU, SISTER, LOTUS SAUER, RAUL OTHER, 0 * Community resources currently utilized None 0 * Please name any agencies selected above. NONE 0 * Additional services required to return to the preadmission environment? No 0 * Can the patient safely return to the preadmission environment? Yes 0 * Has this patient been hospitalized within the prior 30 days at any hospital? No 0 CM RECEIVED TELEPHONE CALL FROM PT WHO REPORTS HE NEEDS CASE MANAGEMENT TO GET HIM A PLACE TO STAY WHEN HE LEAVES THE HOSPITAL. CM MET WITH PT IN ROOM TO DISCUSS DISCHARGE PLANNING AND NEEDS. PT REPORTS LIVING AT HOME INDEPENDENTLY WITH HIS SIGNIFICANT OTHER FOR THE PAST 6-7 YEARS. PT HAS NO MEDICAL EQUIPMENT OTHER THAN HIS BRACES AND NO OUTSIDE SERVICES ASSISTING IN THE HOME. CM DISCUSSED AVAILABILITY OF HOME HEALTH, REHAB SERVICES AND MEDICAL EQUIPMENT. PT REPORTS HE ONLY NEEDS A PLACE TO LIVE BECAUSE HE DOES NOT WANT TO GO HOME. PT REPORTS HIS GIRLS NEPHEW AND ALL THE FAMILY FROM [place] IS IN AND HE DOES NOT GET ALONG WITH THEM. PT REPORTS THAT HE WAS TOLD BY SOMEONE HERE THAT CASE MANAGEMENT WOULD GET HIM SOMEWHERE TO LIVE. CM DISCUSSED LOCAL AND OUT OF TOWN [facility] PLACEMENT. PT ALREADY KNOWS AND HAS USED [facility] IN THE PAST AND DOES NOT WANT TO GO OUT OF TOWN FOR [facility] PLACEMENT. PT WANTS CM TO ASSIST WITH GETTING HIM A HOUSE. PT IS NOT INTERESTED IN GOVERNMENT HOUSING IT IS INFESTED WITH BEDBUGS AND OTHER STUFF. PT HAS NO MONEY HE HAS PAID ALL OF HIS BILLS FOR THE MONTH. PT REPORTS HAVING NO ONE ELSE TO ASK FOR A PLACE TO STAY. CM EXPLAINED THAT THE HOSPITAL IS NOT GOING TO FIND PT A PERMANATE RESIDENCE AND OFFERED AGAIN FOR [facility] PLACEMENT UNTIL PT CAN TRANSITION HIMSELF. PT DECLINED AND REPORTS CAN'T YOU HELP WITH A HOTEL ROOM? CM EXPLAINED THAT THE HOSPITAL HAS VERY LIMITED RESOURCES AND EDUCATED PT ON DEVELOPING PERSONAL SUPPORT SYSTEMS FOR TIMES OF EMERGENCY WELL HAVING AN EMERGENCY FUND PUT ASIDE. CM OFFERED PT A HOUSING APPLICATION IN EVENT PT CHANGED HIS MIND. PT ACCEPTED AND REPORTS PLAN TO RETURN HOME TO HIS GIRLFRIENDS HOME AT DISCHARGE. CM PROVIDED PT AN APPLICATION TO [facility]. Multiple Drum Sander: Van Hadley
[2017-07-18 19:00] VITALS: BP 110/48
--- NOTE | 2017-07-18 20:00 | NUR ---
PT FINISHING UP A BEDSIDE BED BATH AND GOWN/LINEN CHANGE. ALERT/ORIENTED. FLUTTER PER TELEMETRY. CARDIZEM DRIP AT 15ML/HR INFUSING TO RIGHT HAND. SEE SHIFT ASSESSMENT. CPOC.
--- NOTE | 2017-07-18 22:24 | NUR ---
BEDTIME MEDS GIVEN, PAIN PILL PER REQUEST. PT RESTING/WATCHING TV. CALL LIGHT IN REACH. SR UP X 2.
[2017-07-19] VITALS (7 sets, daily range): BP systolic 129–167; BP diastolic 64–81
--- NOTE | 2017-07-19 04:12 | NUR ---
RESTING IN BED WITH NO DISTRESS. IV CARDIZEM AT 15ML/HR INFUSING. CURRENTLY 80'S FLUTTER WITH THE APPEARANCE OF TRYING TO BE SR. WILL CONTINUE TO MONITOR.
--- NOTE | 2017-07-19 06:27 | NUR ---
PT STILL IN FLUTTER, RATES 80-90. CARDIZEM AT 15ML/HR CONTINUES.
--- NOTE | 2017-07-19 08:27 | NUR ---
RESP UL ON . IV PATENT. MARCIN NEEDS OR C/O AT THIS TIME. WILL MONITOR.
--- NOTE | 2017-07-19 08:53 | NUR ---
ASSESSMENT DONE. DENIES NEEDS.
--- NOTE | 2017-07-19 17:20 | NUR ---
WITHOUT CHANGES OR DISTRESS NOTED AT THIS TIME. DENIES NEEDS.
--- NOTE | 2017-07-19 20:15 | NUR ---
PT RESTING IN BED. HAS ALREADY REQUESTED SEVERAL SNACK ITEMS AND IS CURRENTLY EATING ICECREAM. ALERT/ORIENTED. NO IV ACCESS/MD AWARE. 92 FLUTTER PER TELEMETRY. PT'S BROTHER AT BEDSIDE. PT SAYING HE NOW KNOWS THAT THE REASON HE ROLLED OFF THE BED THE OTHER NIGHT WAS BECAUSE IT "FLIPS UP" ON THE SIDE HE IS NOT ON. EXPLAINED TO PT THAT THE BED WILL BE LOWER ON THE SIDE THAT HE HAS ALL OF HIS BODY WEIGHT (366 LBS), SO HE NEEDS TO CENTER HIMSELF ON THE BED AND STAFF WILL STILL PUT BOTH SIDE RAILS UP X 2 FOR WHILE HE IS ASLEEP. SEE SHIFT ASSESSMENT.CPOC,
[2017-07-20 03:53] VITALS: BP 125/47
--- NOTE | 2017-07-20 07:44 | NUR ---
ASSESSMENT DONE. DENIES NEEDS.
[2017-07-20 08:00] VITALS: BP 98/74
--- NOTE | 2017-07-20 09:26 | NUR ---
UP SOB WITH CALL LIGHT IN REACH. WILL CONT. PLAN OF CARE.
[2017-07-20 12:00] VITALS: BP 152/79
--- NOTE | 2017-07-20 15:57 | NUR ---
ALERT AND ORIENTED X4. RESTING IN BED WATCHING TV. A-FLUTTER 87bpm ON TELEMETRY. DENIES PAIN OR SOB. BED LOCKED AND LOW. CALL LIGHT IN REACH. TWO SIDERAILS UP. CONTINUE PLAN OF CARE.
[2017-07-20 16:00] VITALS: BP 142/66
--- NOTE | 2017-07-20 16:55 | NUR ---
Patient Name: CALOS HAAS Encounter No: [id number] : 1955 Primary Insurance: [id number] Anticipated DC Date: 07-19-2017 Planned Disposition: Home DCP follow-up note: CM RECEIVED CALL FROM PT'S HEALTH PROMOTION MANAGER, RASHEEDA, , WHO ASKED IF PT WOULD CONSIDER GOING TO A NURSING HOME FACILITY FOR A SHORT TIME TO WORK ON MEDICATION COMPLIANCE AND PERHAPS HELP DECREASE PT'S FREQUEST READMISSIONS TO THE HOSPITAL. CM MET WITH PT IN ROOM WHO WAS SPEAKING TO HIS "AUNT" ON THE PHONE. CM DISCUSSED NURSING HOME FACILITY PLACEMENT, LOCATIONS, PROVIDERS AND SERVICES OFFERED. PT DECLINED AND ASKED CM TO SPEAK TO HIS "AUNT" ON THE PHONE ABOUT IT. PT'S "AUNT" REPORTS SHE IS A NURSE AND DOES NOT THINK PT NEEDS A NURSING FACILITY FOR ANY REASON AT THIS TIME. SHE REPORTS PT HAS A PLACE TO LIVE AND HE HAS WORKED OUT HIS MISUNDERSTANDING WITH HIS GIRLFRIEND NOW. "AUNT: STATES SHE WILL BE WORKING WITH PT AFTER DISCHARGE ON TAKING HIS MEDICATIONS AND WEIGHT MANAGEMENT. CM LEFT CHOICE LETTER FOR NURSING HOME FACILITY WITH PT AND ENCOURAGED HIM TO CONSIDER THE OPTION FOR HIS HEALTH AND REMINDED HIM THAT IT IS A BENEFIT OF HIS INSURANCE. CM NOTIFIED RASHEEDA OF PT'S INSURANCE COMPANY OF PT'S DECLINATION OF NURSING HOME FACILITY PLACEMENT. PT NOW PLANS TO DISCHARGE BACK HOME WITH HIS GIRLFRIEND, DENIES DISCHARGE NEEDS AT THIS TIME. Van Hadley, CASE MANAGEMENT
--- NOTE | 2017-07-20 19:23 | NUR ---
RESUMED CARE OF PT, UP IN BED RESPIRATIONS EVEN AND UNLABORED ON 2LPM WITH UPDRAFT IN PROGRESS. 89 FLUTTER ON TELEMETRY. CALL LIGHT IN REACH, PLAN OF CARE DISCUSSED. WILL CONTINUE TO MONITOR. SEE NURSE ASSESSMENT.
[2017-07-20 20:32] VITALS: BP 135/65
[2017-07-21 00:05] VITALS: BP 150/63
--- NOTE | 2017-07-21 04:59 | NUR ---
CALL LIGHT IN REACH. WILL CONTINUE WITH PLAN OF CARE.
[2017-07-21 05:21] VITALS: BP 132/57
--- NOTE | 2017-07-21 07:30 | NUR ---
ASSESSMENT COMPLETED. TELEMERTY SHOWS ATRIAL FIB 83. NO IV. UP AB CHILANGO.DENIES ANY NEEDS. TO BE DISCHARGED TODAY
--- NOTE | 2017-07-21 07:44 | NUR ---
UP SOB WITH CALL LIGHT IN REACH. WILL MONITOR NEEDS.
[2017-07-21 08:23] VITALS: BP 121/74
[2017-07-21 11:59] VITALS: BP 144/74
--- NOTE | 2017-07-21 12:05 | NUR ---
LYING QUIETLY WANTING TO GO HOME. NO TELEMERTY OR IV
--- NOTE | 2017-07-21 14:09 | NUR ---
LYING QUIETLY. NO NEEDS VOICED. SR UP WITH CALL LIGHT IN REACH.
[2017-07-21] MEDS ORDERED: ZITHROMAX500 MG PO (14:44)
[2017-07-21] MEDS ORDERED: TUMS500 MG PO (14:45)
[2017-07-21] MEDS ORDERED: MUCINEX600 MG PO (14:46)
[2017-07-21] MEDS ORDERED: TOPROL XL25 MG PO (14:47)
[2017-07-21] MEDS ORDERED: CARDIZEM CD240 MG PO (14:48)
--- NOTE | 2017-07-21 14:54 | NUR ---
Patient Name: CALOS HAAS Encounter No: [id number] : 1955 Primary Insurance: [id number] Anticipated DC Date: 07-21-2017 Planned Disposition: Home DCP follow-up note: CM RECEIVED DISCHARGE ORDER. CM MET WITH PT IN ROOM TO DISCUSS DISCHARGE NEEDS AND PLANNING. CM DISCUSSED AVAILABILITY OF HOME HEALTH, REHAB SERVICES AND MEDICAL EQUIPMENT. PT DENIES DISCHARGE NEEDS. PT REPORTS HIS GIRLFRIEND WILL BE HERE TO TRANSPORT HOME AT DISCHARGE TODAY. IMPORTANT MESSAGE FROM MEDICARE PROVIDED AND EXPLAINED. [place], CASE MANAGEMENT
--- NOTE | 2017-07-21 16:14 | NUR ---
PT DISCHARGED. TO PRIVATE CAR PER WHEELCHAIR.
== END 2017-07-21 16:15 | disposition home or self-care (01) | DRG 310 ==
LOC: D.ER 07:25 → D.M2 09:13 → OBSVTIME 09:13 → D.M2 07-18 14:38
PROVIDERS: Emergency Medicine; ADMIT Internal Medicine Cardiovascular Disease
DX: I48.92 Unspecified atrial flutter (principal); J44.9 Chronic obstructive pulmonary disease, unspecified; I48.91 Unspecified atrial fibrillation; R12 Heartburn; I11.0 Hypertensive heart disease with heart failure; I50.9 Heart failure, unspecified; J40 Bronchitis, not specified as acute or chronic

== ENCOUNTER 2017-07-22 13:20 | Inpatient (IN) | payer MEDICARE ==
[~2017-07-22] VITALS: Ht 170.2 cm; Wt 168.6 kg
[~2017-07-22 13:20] MED LIST changes: +CARDIZEM CD240 MG PO; +LOTRISONE CREAM45 GM TOPICAL; +MUCINEX600 MG PO; +TOPROL XL25 MG PO; +TUMS500 MG PO; +ZITHROMAX500 MG PO
[2017-07-22 14:42] LABS: BASOPHILS 0.1 % (0-2); EOSINOPHILS 1.2 % (0-7); HEMATOCRIT 25.5 % (42.0-54.0); HEMOGLOBIN 7.7 g/dL (13.5-17.5); IMMATURE GRANULOCYTES 0.6 % (0-5); LYMPHOCYTES 11.6 % (15-50); MCH 21.4 pg (26.0-34.0); MCHC 30.2 g/dL (31.0-37.0); MEAN PLATELET VOLUME 9.2 fL (7.4-10.4); MONOCYTES 9.1 % (2-11); NEUTROPHILS 77.4 % (40-80); RBC 3.59 10x6/uL (4.20-6.10); RDW 22.4 % (11.5-14.5); WBC 14.1 10x3/uL (4.8-10.8)
[2017-07-22 14:43] LABS: PLATELET COUNT 315 10x3/uL (130-400)
[2017-07-22 14:50] LABS: INR 1.3 (0.85-1.17)
[2017-07-22 14:56] LABS: ALKALINE PHOSPHATASE 115 U/L (46-116); ALT (SGPT) 40 U/L (10-68); BILIRUBIN - TOTAL 0.26 mg/dL (0.2-1.3); CALC OSMOLALITY 269 mosm/kg (275-300); CALCIUM 8.5 mg/dL (8.5-10.1); CARBON DIOXIDE 31.7 mmol/L (21.0-32.0); CHLORIDE - SERUM 98 mmol/L (98-107); CREATININE - SERUM 1.3 mg/dL (0.6-1.3); GLUCOSE 123 mg/dL (74-106); POTASSIUM - SERUM 3.8 mmol/L (3.5-5.1); PROTEIN - SERUM 7.4 g/dL (6.4-8.2); SODIUM 134 mmol/L (136-145); UREA NITROGEN 14 mg/dL (7-18); eGFR NON AFRICAN AMERICAN 60 mL/min (90-120)
[2017-07-22 15:10] LABS: TROPONIN-I < 0.017 ng/mL (0.000-0.060)
[2017-07-22 15:10] LABS: APPEARANCE CLEAR (CLEAR); BILIRUBIN NEGATIVE (NEGATIVE); COLOR YELLOW (YELLOW); GLUCOSE NEGATIVE (NEGATIVE); KETONE NEGATIVE (NEGATIVE); NITRITE NEGATIVE (NEGATIVE); PROTEIN NEGATIVE (NEGATIVE); UROBILINOGEN NORMAL (NORMAL)
--- NOTE | 2017-07-22 18:05 | NUR ---
REC'D VIA WHEELCHAIR FROM ER PERSONNEL, AAO, CONNECTED TO MONITOR, HTN, 173/84, AFLUTTER, OTHER VSS, HISTORY COMPLETED, , UNIT #1 PRBC STARTED AT 125 CC/HR, DR COY AND DR LINDSAY AT BEDSIDE, DISCUSSED POC WITH PATIENT
[2017-07-22 19:00] VITALS: BP 180/78
--- NOTE | 2017-07-22 19:10 | NUR ---
SHIFT ASSESSMENT COMPLETE, PATIENT A&O X4, ON ROOM AIR, O2 SAT >94%. A-FLUTTER ON MONITOR WITH RATES BETWEEN 90-110. VSS. LUNG SOUNDS CLEAR. BOWEL SOUNDS ACTIVE X4. DEINIES PROBLEMS URINATING. GETS UP TO BEDSIDE COMMODE. PERIPHERAL PULSES +2, BILATERAL. PIV IN RH INFUSING PRBC'S @ 125MLS/HR. NO REACTION NOTED. DENIES NEEED AT THIS TIME, CL IN REACH.
--- NOTE | 2017-07-22 19:30 | NUR ---
DR COY CALLED FOR BLOOD PRESSURE AND MEDS, ORDERS RECEIVED.
[2017-07-22 20:00] VITALS: BP 174/87
--- NOTE | 2017-07-22 20:00 | NUR ---
DR HERRERA CALLED CONCERNING BP AND MEDICATIONS, NEW ORDERS RECIEVED.
--- NOTE | 2017-07-22 20:40 | NUR ---
SECOND UNIT PRBC'S STARTED.
[2017-07-22 21:00] VITALS: BP 164/80
--- NOTE | 2017-07-22 21:00 | NUR ---
PIV STARTED IN RAC, PROTONIX GTT STARTED.
[2017-07-22 21:55] VITALS: BP 173/84; BMI 54.1
[2017-07-22 22:00] VITALS: BP 169/87
[2017-07-22 23:00] VITALS: BP 158/71
--- NOTE | 2017-07-22 23:05 | NUR ---
REASSESSMENT COMPLETE, NO ACUTE CHANGES FROM PREVIOUS ASSESSMENT. VSS, DENIES NEED.
--- NOTE | 2017-07-22 23:45 | NUR ---
FIRST UNIT FFP STARTED. WILL MONITOR.
[2017-07-23] VITALS (30 sets, daily range): BP systolic 106–165; BP diastolic 43–97; Ht 170.2 cm; Wt 168.6 kg
--- NOTE | 2017-07-23 01:00 | NUR ---
RESTING WITH EYES CLOSED. VSS. CL IN REACH.
[2017-07-23 02:14] LABS: HEMATOCRIT 28.2 % (42.0-54.0); HEMOGLOBIN 8.7 g/dL (13.5-17.5)
[2017-07-23 02:23] LABS: INR 1.14 (0.85-1.17); PROTIME 14.5 SECONDS (11.6-15.0)
--- NOTE | 2017-07-23 03:05 | NUR ---
REASSESSMENT COMPLETE. NO ACUTE CHANGES. DENIES NEED, WILL MONITOR.
--- NOTE | 2017-07-23 05:00 | NUR ---
DENIES NEED AT THIS TIME. NO DISTRESS NOTED.
[2017-07-23 05:15] LABS: BASOPHILS 0.1 % (0-2); EOSINOPHILS 1.9 % (0-7); HEMATOCRIT 28.3 % (42.0-54.0); HEMOGLOBIN 8.6 g/dL (13.5-17.5); IMMATURE GRANULOCYTES 0.5 % (0-5); LYMPHOCYTES 13.6 % (15-50); MCH 22.2 pg (26.0-34.0); MCHC 30.4 g/dL (31.0-37.0); MCV 72.9 fL (80.0-100.0); MEAN PLATELET VOLUME 9.1 fL (7.4-10.4); MONOCYTES 9.1 % (2-11); NEUTROPHILS 74.8 % (40-80); PLATELET COUNT 288 10x3/uL (130-400); RBC 3.88 10x6/uL (4.20-6.10); RDW 22.2 % (11.5-14.5); WBC 12.6 10x3/uL (4.8-10.8)
[2017-07-23 05:27] LABS: APTT 32.6 SECONDS (22.8-39.4); INR 1.16 (0.85-1.17); PROTIME 14.7 SECONDS (11.6-15.0)
[2017-07-23 05:40] LABS: ALBUMIN 2.9 g/dL (3.4-5.0); ANION GAP 10.9 mmol/L (8-16); BILIRUBIN - DIRECT 0.17 mg/dL (0.00-0.30); BILIRUBIN - TOTAL 0.61 mg/dL (0.2-1.3); CALCIUM 8.4 mg/dL (8.5-10.1); CARBON DIOXIDE 31.8 mmol/L (21.0-32.0); CREATININE - SERUM 1.2 mg/dL (0.6-1.3); POTASSIUM - SERUM 3.7 mmol/L (3.5-5.1); PROTEIN - SERUM 7.2 g/dL (6.4-8.2)
--- NOTE | 2017-07-23 07:48 | NUR ---
SITTING UP ON SIDE OF BED AT THIS TIME. NO ACUTE DISTRESS NOTED. PT DENIES ANY NEEDS. WILL CONTINUE PLAN OF CARE.
--- NOTE | 2017-07-23 08:43 | NUR ---
PT CALLED NURSE TO COME INTO ROOM AT THIS TIME. NOTED IV TO RT AC HAD BEEN PULLED ON ACCIDENT. CATHETER TIP INTACT. PT STILL HAS IV ACCESS TO RT WRIST, FLUSHES WELL. NO ACUTE DISTRESS NOTED. WILL CONTINUE PLAN OF CARE.
--- NOTE | 2017-07-23 10:45 | NUR ---
PER DR LINDSAY H&H PROTOCOL PT TO RECIEVE 1 U PRBC. UNIT ADMINISTRATION INITIATED AT THIS TIME. NO ACUTE DISTRESS NOTED. WILL CONTINUE PLAN OF CARE.
--- NOTE | 2017-07-23 11:58 | NUR ---
OXYGEN SATURATION NOTED AT 86% WITH GOOD WAVEFORM WITH OXYGEN AT 2L VIA NC. OXUGEN INCREASED FROM 3 THEN 4L VIA NC NOTED OXYFGEN SATURATION IS NOW TRENDING IN THE LOWER 90S. NO DISTRESS NOTED. PT STATES HE FEELS FINE. WILL CONTINUE TO OBSERVE.
--- NOTE | 2017-07-23 12:59 | NUR ---
PT COMPLETE WITH EGD, CURRENTLY ON OXYGEN MASK AT 15L O2 OXYGEN SATURATION AT 90%. RESPIRATIONS STEADY AND UNLABORED. NO DISTRESS NOTED. WILL CONTINUE PLAN OF CARE.
--- NOTE | 2017-07-23 13:46 | NUR ---
OXYGEN SATURATION TRENDING 89%-91% WITH OXIMIZER AT 11L VIA O2. DR BHATIA PAGED TO NOTIFY FOR FURTHER ORDERS. PT SITTING UP IN BED AWAKE AND VISITING WITH VISITOR. WILL CONTINUE PLAN OF CARE.
--- NOTE | 2017-07-23 13:54 | NUR ---
RECIEVED CALLBACK FROM DR BHATIA ORDERS RECIEVED FOR PULMONOLOGY CONSULT FOR HYPOXEMIA AND ADD ORDERS FOR DUONEB FROM QID TO ALSO PRN AND ADMIN ONE DOSE NOW. WILL PLACE ORDERS.
--- NOTE | 2017-07-23 14:00 | NUR ---
NOTIFIED DR LAWSON OF CONSULT
[2017-07-23 15:53] LABS: HEMATOCRIT 30.4 % (42.0-54.0); HEMOGLOBIN 9.4 g/dL (13.5-17.5)
--- NOTE | 2017-07-23 17:39 | NUR ---
UP IN BED AT THIS TIME EATING SUPPER. OXYMIZER AT 12L VIA O2 OXYGEN SATURATION AT 95%. NO ACUTE DISTRESS NOTED. WILL CONTINUE PLAN OF CARE.
--- NOTE | 2017-07-23 19:10 | NUR ---
SHIFT ASSESSMENT COMPLETE, SEE FLOWSHEET FOR DETAILS. PATIENT A&OX4. ON BIPAP @ 50%, O2 SAT 95%, DENIES TROUBLE BREATHING. DIMINISHED LUNG SOUNDS AT BASES. A-FLUTTER ON MONITOR WITH A RATE OF 95. BS ACTIVE X4. DENIES PROBLEMS VOIDING. PERIPHERAL PULSES +2, SCD'S ON, PATIENT STATES HE WANTS THEM OFF, EDUCATION COMMUNICATED WITH HIM ABOUT THE IMPORTANCE AND DECIDED HE WOULD KEEP THEM ON. PIV IN RH AND RAC, BOTH PATENT AND C/D/I. WILL CONTINUE TO MONITOR.
--- NOTE | 2017-07-23 20:34 | NUR ---
REVIEW OF CHART REVEALS THAT PATIENT IS A CURRENT 1/2 PPD SMOKER AND REQUESTED CESSATION MEDICATION AND REFERRAL TO QUITLINE. ORDERED CONSULT FOR SMOKING CESSATION MEDICATION AND WILL PLACE QUITLINE REFERRAL INFO ON CHART FOR SUBMISSION AT DISCHARGE.
--- NOTE | 2017-07-23 21:00 | NUR ---
NIGHT MEDS GIVEN. PATIENT PUT ON 13L OXYMIZER FOR BREAK FROM BIPAP. WILL MONITOR. DENIES SOB.
[2017-07-23 22:25] LABS: HEMATOCRIT 30.3 % (42.0-54.0); HEMOGLOBIN 9.4 g/dL (13.5-17.5)
--- NOTE | 2017-07-23 23:00 | NUR ---
REASSESSMENT COMPLETE, PATIENT SAT MAINTAINING BELOW 90%, PLACED BACK ON BIPAP. NO OTHER ACUTE CHANGES. VSS, WILL MONTIOR.
[2017-07-24] VITALS (23 sets, daily range): BP systolic 126–167; BP diastolic 56–97
--- NOTE | 2017-07-24 01:05 | NUR ---
RESTING WITH EYES CLOSED, VSS. O2 SAT 94%.
--- NOTE | 2017-07-24 03:05 | NUR ---
REASSESSMENT COMPLETE, SEE FLOWSHEET
[2017-07-24 04:21] LABS: BASOPHILS 0.1 % (0-2); EOSINOPHILS 0 % (0-7); HEMATOCRIT 29.7 % (42.0-54.0); HEMOGLOBIN 9.2 g/dL (13.5-17.5); IMMATURE GRANULOCYTES 0.5 % (0-5); LYMPHOCYTES 4.9 % (15-50); MCH 23.1 pg (26.0-34.0); MCV 74.6 fL (80.0-100.0); MEAN PLATELET VOLUME 9.9 fL (7.4-10.4); MONOCYTES 3.1 % (2-11); NEUTROPHILS 91.4 % (40-80); PLATELET COUNT 304 10x3/uL (130-400); RBC 3.98 10x6/uL (4.20-6.10); RDW 22.5 % (11.5-14.5); WBC 11.5 10x3/uL (4.8-10.8)
[2017-07-24 04:45] LABS: ALBUMIN 3.1 g/dL (3.4-5.0); ALKALINE PHOSPHATASE 148 U/L (46-116); BILIRUBIN - TOTAL 0.75 mg/dL (0.2-1.3); CALCIUM 8.3 mg/dL (8.5-10.1); CHLORIDE - SERUM 96 mmol/L (98-107); GLUCOSE 170 mg/dL (74-106); PHOSPHOROUS 3.3 mg/dL (2.5-4.9); PRO BNP 519 pg/mL (0-125); PROTEIN - SERUM 8.1 g/dL (6.4-8.2); SODIUM 132 mmol/L (136-145)
[2017-07-24 04:46] LABS: ALT (SGPT) 51 U/L (10-68); CALC OSMOLALITY 270 mosm/kg (275-300); CREATININE - SERUM 2.2 mg/dL (0.6-1.3); POTASSIUM - SERUM 5.3 mmol/L (3.5-5.1); TROPONIN-I < 0.017 ng/mL (0.000-0.060); UREA NITROGEN 19 mg/dL (7-18); eGFR NON AFRICAN AMERICAN 33 mL/min (90-120)
[2017-07-24 04:50] LABS: INR 1.12 (0.85-1.17); PROTIME 14.3 SECONDS (11.6-15.0)
[2017-07-24 04:52] LABS: D-DIMER-QUANTITATIVE 0.56 ug/mLFEU (0.20-0.54)
[2017-07-24 05:09] LABS: ERYTHROCYTE SEDIMENTATION RATE 42 mm/hr (0-20)
--- NOTE | 2017-07-24 05:10 | NUR ---
RESTING WITH EYES CLOSED, VSS.
--- NOTE | 2017-07-24 07:54 | NUR ---
PAGED DR ROBERTSON AT THIS TIME TO NOTIFY OF PTS POTASSIUM LEVEL OF 5.3, ELEVATED BUN/CR, AND DECREASED URINE OUTPUT. WAITING FOR CALLBACK FOR FURTHER ORDERS.
[2017-07-24 10:01] LABS: ANION GAP 15.9 mmol/L (8-16); CALCIUM 8.2 mg/dL (8.5-10.1); CREATININE - SERUM 2.2 mg/dL (0.6-1.3); POTASSIUM - SERUM 4.9 mmol/L (3.5-5.1)
--- NOTE | 2017-07-24 10:49 | NUR ---
UP IN BED HIGH FOWLERS POSITION. BIPAP AT 65%, OXYGEN SATURATION AT 92%. PT DENIES ANY NEEDS. WILL CONTINUE TO OBSERVE.
--- NOTE | 2017-07-24 12:39 | NUR ---
WATCHING TV AT THIS TIME. NO ACUTE DISTRESS NOTED. VISITOR IN ROOM WITH PT. NOTED ALL PO MEDS ARE TO HE HELD BECAUSE PT OXYGEN NEEDS; REQUIRES BIPAP AND OXYGEN SATURATION LEVELS QUICKLY DESATS WHEN IS REMOVED, PT ALSO UNABLE TO TOLERATE OXIMIZER AT 15L; OXYGEN SATURATION NOTED TO BE IN THE MID 80S THEREFORE PT HAS BEEN ON BIPAP ALL OF TODAY. WILL CONTINUE PLAN OF CARE.
--- NOTE | 2017-07-24 14:37 | NUR ---
PT COMPLAINT OF PAIN TO SHOULDER STATING IT HAS BEEN SORE SINCE EGD YESTERDAY. PT UNABLE TO TOLERATE PO MEDS BECAUSE HE REQUIRES CONSTANT BIPAP. CALLED DR ROBERTSON FOR FURTHER ORDERS, ORDER TO APPLY HEATING PAD RECIEVED. WILL CONTINUE PLAN OF CARE.
--- NOTE | 2017-07-24 14:48 | NUR ---
IV TO RT HAND NO LONGER PATENT, LEAKS AROUND CATHETER WHEN FLUSHED THEREFORE DC AT THIS TIME, CATHETER INTACT. PT STILL HAS ACCESS TO RT AC, FLUSHES WELL. WILL CONTINUE PLAN OF CARE.
--- NOTE | 2017-07-24 17:46 | NUR ---
UP BED EATING SUPPER AT THIS TIME WITH VISITORS IN ROOM SPEAKING WITH PT. PT ON OXIMIZER WHILE EATING AT 15L OXYGEN SATURATION TRENDING 88-91%. BIPAP PLACED BACK TO PT AFTER COMPLETION OF MEAL. NO ACUTE DISTRESS NOTED. OXYGEN SATURATION AT 92% ON BIPAP AT 65%. WILL CONTINUE TO OBSERVE.
--- NOTE | 2017-07-24 19:15 | NUR ---
ASSESSMENT COMPLETE. NSR SHOWING ON MONITOR. RR SHALLOW; DYSPNEA NOTED ON EXERTION. BIPAP AT 65%. O2 SAT 90%. PT MAKES CHANGES IN POSITION INDEPENDENTLY; FREQUENT POSITION CHANGES. RT AC PIV; PATENT. RADIAL AND PEDAL PULSES PALPATED. AAO. PERRLA. REDNESS NOTED TO LEFT EYE. C/O N/V; ADM PRN MEDS PER ORDERS SEE EMAR FOR DETAILS.
--- NOTE | 2017-07-24 19:50 | NUR ---
COMPLETE LINEN CHANGE. NEW GOWN. ORAL CARE PROVIDED.
--- NOTE | 2017-07-24 20:00 | NUR ---
FAMILY AT BEDSIDE. UPDATE GIVEN. QUESTIONS ANSWERED.
--- NOTE | 2017-07-24 22:07 | NUR ---
PT URINATED 400; CONCENTRATED YELLOW.
--- NOTE | 2017-07-24 22:34 | NUR ---
SPOKE WITH DR. LAWSON. UPDATE ON PT CONDITION. ORDERS RECEIVED.
--- NOTE | 2017-07-24 22:46 | NUR ---
PT HAVING INCREASED ANXIETY. TACHYPNEA AND AGITATION. PULLING AT MASK. ADM ATIVAN PER ORDERS. SEE EMAR FOR DETAILS.
--- NOTE | 2017-07-24 23:10 | NUR ---
REASSESSMENT COMPLETE. NO ACUTE CHANGES FROM PREVIOUS ASSESSMENT.
[2017-07-25] VITALS (24 sets, daily range): BP systolic 106–157; BP diastolic 59–91
--- NOTE | 2017-07-25 00:23 | NUR ---
PIV; 20 GAUGE RESITED TO RIGHT HAND. X4 ATTEMPT.
--- NOTE | 2017-07-25 02:05 | NUR ---
PT DC'D PIV TO RIGHT HAND; CATH INTACT. DRESSING APPLIED. SITE CLEANED.
--- NOTE | 2017-07-25 03:03 | NUR ---
REASSESSMENT COMPLETE. NO ACUTE CHANGES FROM PREVIOUS ASSESSMENT. INCREASE IN ANXIETY.
--- NOTE | 2017-07-25 04:03 | NUR ---
PT ATTEMPTED TO GET OUT OF BED. BED ALARM IN PLACE. ASSISTED PT BACK TO A COMFORTABLE POSITION IN BED.
[2017-07-25 04:21] LABS: BASOPHILS 0 % (0-2); EOSINOPHILS 0 % (0-7); HEMATOCRIT 28.7 % (42.0-54.0); HEMOGLOBIN 8.9 g/dL (13.5-17.5); IMMATURE GRANULOCYTES 0.4 % (0-5); LYMPHOCYTES 3.2 % (15-50); MCH 23.4 pg (26.0-34.0); MCV 75.3 fL (80.0-100.0); MONOCYTES 6.6 % (2-11); NEUTROPHILS 89.8 % (40-80); PLATELET COUNT 334 10x3/uL (130-400); RBC 3.81 10x6/uL (4.20-6.10)
[2017-07-25 04:22] LABS: WBC 15.5 10x3/uL (4.8-10.8)
[2017-07-25 04:54] LABS: ALBUMIN 3.2 g/dL (3.4-5.0); ANION GAP 14.9 mmol/L (8-16); BILIRUBIN - TOTAL 0.53 mg/dL (0.2-1.3); CALCIUM 8.6 mg/dL (8.5-10.1); CARBON DIOXIDE 26.2 mmol/L (21.0-32.0); CREATININE - SERUM 2.6 mg/dL (0.6-1.3); MAGNESIUM - SERUM 2.2 mg/dL (1.8-2.4); POTASSIUM - SERUM 5.1 mmol/L (3.5-5.1); PROTEIN - SERUM 8.1 g/dL (6.4-8.2)
[2017-07-25 05:04] LABS: PHOSPHOROUS 4.7 mg/dL (2.5-4.9)
--- NOTE | 2017-07-25 05:06 | NUR ---
FAMILY AT BEDSIDE. UPDATE GIVEN. QUESTIONS ANSWERED.
--- NOTE | 2017-07-25 08:25 | NUR ---
RESP RATE 36/MIN. BIPAP 100% FIO2 SPO2 90%. CRACKLES BILAT LUNGS. PT COMMING OUT OF BED. BED ALARM GOING OFF. BIPAP MASK TORN OFF. ASSISTED PT BACK TO BED. MOUTH CARE AND REPLACED A NEW BIPAP MASK. BED ALARM SET.
--- NOTE | 2017-07-25 10:30 | NUR ---
NUTRITION F/U CHART REVIEWED. PT CURRENTLY ON BIPAP. DIET ADVANCED TO FULL LIQUID. WILL CONTINUE TO PROVIDE DIET, MONITOR PO INTAKE. RD FOLLOWING
--- NOTE | 2017-07-25 11:37 | NUR ---
ASSISTED W/BED HERCULES AFTER PT ASKING TO GET OOB. PT UNABLE TO HAVE BM. BATH AND LINENS CHANGED.
--- NOTE | 2017-07-25 14:00 | NUR ---
CM left voice mail for Betina Thee (girlfriend of 11 years) to return call to assess dc plans/needs. [phone]
--- NOTE | 2017-07-25 15:43 | NUR ---
1445- ABG'S DRAWN AND CALLED TO DR HUGO. ANESTHESIA CALLED AND INTUBATED BY DR KNOTT. 8.0 ETT AND 24 AT LIP. CXR OBTAINED AND DIPROVAN INFUSION STARTED FOR SEDATUION.
--- NOTE | 2017-07-25 16:54 | NUR ---
SPO2 DROP TO 82%, SUCTIONED AND HOB 30 DEG. ABG'S DRAWN.
--- NOTE | 2017-07-25 18:09 | NUR ---
ABG'S REDRAWN AND CALLED TO DR HUGO. DR HUGO CAME TO ICU. VENT CHANGES MADE BY DR HUGO. SPO2 INCREASED TO 92%. PT SEDATED W/ JUSTAROVAN.
--- NOTE | 2017-07-25 19:15 | NUR ---
ASSESSMENT COMPLETE. NSR SHOWING ON MONITOR. PT SEDATED ON VENT; FI02 100%; O2 SAT 88%. RADIAL AND PEDAL PULSES PALPATED. CHILDRESS CATH IN PLACE. SCD IN PLACE. PERRLA.
--- NOTE | 2017-07-25 19:50 | NUR ---
SPOKE WITH GUMARO. NGT NOT TO BE PLACED; VARICES NOTED.
--- NOTE | 2017-07-25 19:55 | NUR ---
SPOKE WITH DR. SHELTON. ORDERS RECEIVED. SEE ORDERS FOR DETAILS.
--- NOTE | 2017-07-25 20:45 | NUR ---
FAMILY AT BEDSIDE. UPDATE GIVEN. QUESTIONS ANSWERED.
--- NOTE | 2017-07-25 23:10 | NUR ---
REASSESSMENT COMPLETE. NO ACUTE CHANGES FROM PREVIOUS ASSESSMENT. WILL CONTINUE TO MONITOR.
--- NOTE | 2017-07-25 23:11 | NUR ---
SPOKE WITH FAMILY. UPDATE GIVEN. QUESTIONS ANSWERED.
[2017-07-26] VITALS (26 sets, daily range): BP systolic 120–178; BP diastolic 53–101
--- NOTE | 2017-07-26 03:30 | NUR ---
REASSESSMENT COMPLETE. NO ACUTE CHANGES FROM PREVIOUS ASSESSMENT. PT NOT TOLERATING POSITION CHANGES; TACHYPNEA NOTED; COUGHING.
[2017-07-26 04:34] LABS: BASOPHILS 0.1 % (0-2); EOSINOPHILS 0.6 % (0-7); HEMOGLOBIN 8.6 g/dL (13.5-17.5); IMMATURE GRANULOCYTES 1.2 % (0-5); LYMPHOCYTES 4.9 % (15-50); MCH 23.4 pg (26.0-34.0); MCHC 29.7 g/dL (31.0-37.0); MCV 78.8 fL (80.0-100.0); MEAN PLATELET VOLUME 10.4 fL (7.4-10.4); MONOCYTES 13.4 % (2-11); NEUTROPHILS 79.8 % (40-80); PLATELET COUNT 321 10x3/uL (130-400); RBC 3.68 10x6/uL (4.20-6.10); RDW 26.2 % (11.5-14.5); WBC 14.6 10x3/uL (4.8-10.8)
--- NOTE | 2017-07-26 05:10 | NUR ---
FAMILY AT BEDSIDE. UPDATE GIVEN. QUESTIONS ANSWERED.
[2017-07-26 06:04] LABS: ALBUMIN 3.2 g/dL (3.4-5.0); ANION GAP 16.9 mmol/L (8-16); BILIRUBIN - TOTAL 0.7 mg/dL (0.2-1.3); CALCIUM 8.6 mg/dL (8.5-10.1); CARBON DIOXIDE 23.9 mmol/L (21.0-32.0); MAGNESIUM - SERUM 2.5 mg/dL (1.8-2.4); PHOSPHOROUS 5.5 mg/dL (2.5-4.9); POTASSIUM - SERUM 4.8 mmol/L (3.5-5.1); PROTEIN - SERUM 7.6 g/dL (6.4-8.2)
[2017-07-26 06:07] LABS: CREATININE - SERUM 3.7 mg/dL (0.6-1.3)
--- NOTE | 2017-07-26 08:02 | NUR ---
PT INTUBATED AND SEDATED. DIPROVAN FOR SEDATION. 65MCG/KG/MIN, BP 147/67. PT SEDATED. HR 74. SPO2 92% ON 100% FI02, PEEP 12 A/C 20. SPO2 DROPS TO 85% WHEN TURNED.
--- NOTE | 2017-07-26 09:31 | NUR ---
consulte noted for cardiology. dr cosme's office called. spoke to jennifer and left message with her re: consult written. consult for renal written. called office of nephrology. rec'd notice that alexandria is on calll. had office page alexandria.
--- NOTE | 2017-07-26 11:09 | NUR ---
NUTRITION F/U PT NOW INTUBATED. SPOKE WITH PULMONARY AND RENAL. SUPLENA STARTED @ 20 CC/HR. DIPRIVAN CURRENTLY @ 68.3 CC/HR PROVIDING ~1800 KCAL PER DAY. SUPLENA WILL PROVIDE 864 KCAL, [address] RD FOLLOWING
[2017-07-26 12:43] LABS: CREATININE - URINE 34.8 mg/dL (30-125)
[2017-07-26 12:48] LABS: PROTEIN - URINE 1.8 mg/dL (0.0-11.9)
--- NOTE | 2017-07-26 12:55 | NUR ---
SPOKE TO DR NAIK AND REC'D OK TO DROP OGT FOR FEEDING. 14FR OGT VERIFIED BY AUSCULTATION OF AIR BOLUS. PT AWAKENS AND STARTS TO DROP SPO2 ON 100% FI02 WHEN TURNED. FENTANYL COUNTINOUS INFUSION STARTED FOR SEDATION. CONCENT FOR ON CHART DONE BY NEXT OF KIN FOR CVL. CONSULT CALLED TO DR VILLAGRAN.
[2017-07-26 13:54] LABS: APPEARANCE CLEAR (CLEAR); BILIRUBIN NEGATIVE (NEGATIVE); COLOR YELLOW (YELLOW); GLUCOSE NEGATIVE (NEGATIVE); KETONE NEGATIVE (NEGATIVE); NITRITE NEGATIVE (NEGATIVE); PROTEIN NEGATIVE (NEGATIVE); SPECIFIC GRAVITY 1.015 (1.005-1.020); UROBILINOGEN NORMAL (NORMAL)
[2017-07-26 14:03] LABS: BACTERIA FEW /hpf (NONE SEEN); EPITHELIAL CELLS OCC /hpf (0-5); MUCUS <1+ /lpf (NONE SEEN); WHITE CELLS - URINE RARE /hpf (0-5)
--- NOTE | 2017-07-26 14:05 | NUR ---
* Is the patient Alert and Oriented? Yes 0 * How many steps to enter\exit or inside your home? 3 0 * PCP Dr. Coy 0 * Pharmacy [facility] on [address] 0 * Preadmission Environment Home with Family 0 * ADLs Independent 0 * Equipment Nebulizer 0 * List name and contact numbers for known caregivers / representatives who currently or will assist patient after discharge: Girlfriend of 30+ years - Betina Kingston [phone] Sister - Diana Orozco [phone] Brother - Ranjith Tay Aunt - Bethany [phone] 0 * Additional services required to return to the preadmission environment? Yes 0 * Can the patient safely return to the preadmission environment? Yes 0 * Has this patient been hospitalized within the prior 30 days at any hospital? Yes Patient Name: CALOS HAAS Admission Status: ER Accout number: [id number] Admission Date: 07-22-2017 : 1955 Admission Diagnosis: Attending: EVANGELINA COY Current LOS: 4 Planned Disposition: Home Primary Insurance: [facility] Discharge Planning Comments: CM spoke with girlfriend, Betina, via telephone. Betina reports patient lives at home with her. She reports he was independent with all ADL's & IADL's prior to hospitalization. She states he has a home nebulizer but no other DME. She states the plan at discharge is for patient to return home with her. Previous CM notes reviewed from previous hospitalizations - most recently discharged 07/21 - he declined SNF & HH services at that time. CM will meet with patient again regarding SNF & HH services once he is off ventilator and progressing towards DC. CM will follow & assist as needed. Director Case: Sandee Al
--- NOTE | 2017-07-26 18:37 | NUR ---
CVL PLACED RT JUGULAR, RT WRIST ART LINE PLACED. CXR OBTAINED.
--- NOTE | 2017-07-26 19:15 | NUR ---
REPORT RECEIVED AND CARE ASSUMED. INITIAL SHIFT ASSESSMENT COMPLETED SEE FLOWSHEET. CALL PLACED TO RADIOLOGY AND PCXR TO CONFIRM LINE PLACEMENT READ BY DR. HNUTER RESULTED. OK FOR USE PER DR. HUNTER. PT BEING MONITORED PER STANDARD ICU PROTOCOL ALL ALARMS SET AND VERIFIED
--- NOTE | 2017-07-26 20:00 | NUR ---
PT'S BROTHER HERE. UPDATE GIVEN.
--- NOTE | 2017-07-26 20:45 | NUR ---
ALL LINES HAVE BEEN CHANGED TO NEW LINES AND MANIFOLD IN USE CONNECTED TO RIGHT IJ. RT AT BEDSIDE PT RECEIVING UPDRAFT PT TURNED AND REPOSITIONED USING PILLOWS TO SUPPORT, ELEVATE ARMS AND FLOAT HEELS. PT BEGAN TO HAVE INCREASED PEAK PRESSURES, BREATHING OVER THE VENT, DECREASED SPO2 AND DECREASED LUNG SOUNDS IN RIGHT LOBES. PT GIVEN ATIVAN FOR AGGITATION, INCREASED FENTANLY TO 400MCG/HR, TURNED BACK TO SUPINE POSITION AND PCXR DONE. DID BAG PT WITH NO RESISTANCE NOTED. NO PNEUMO NOTED AND AFTER ABOVE MENTIONED INTERVENTIONS PT'S CONDITION RETURNED TO BASELINE. CVP ATTATCHED BUT NOT ZEROED AT THIS TIME DUE TO UNSTABLE CONDITION OF PT.
--- NOTE | 2017-07-26 22:09 | NUR ---
SISTER, KE NOTIFIED OF INTERVENTIONS DONE AND CONDITION OF PT
--- NOTE | 2017-07-26 23:00 | NUR ---
SHIFT REASSESSMENT COMPLETED SEE FLOWSHEET. PT REMAINS TOTAL CARE AND IS WELL SEDATED VSS AT THIS TIME.
[2017-07-27] VITALS (24 sets, daily range): BP systolic 123–180; BP diastolic 54–81
--- NOTE | 2017-07-27 01:00 | NUR ---
CONT TO MONITOR PER ICU STANDARDS VSS AT THIS TIME. PT NOT TOLERATING TURNING AND REPOSITIONING WELL
--- NOTE | 2017-07-27 03:00 | NUR ---
SHIFT REASSESSMENT COMPLETED SEE FLOWSHEET. NO SIGNIFICANT CHANGES SINCE LAST REASSESSMENT.
--- NOTE | 2017-07-27 03:20 | NUR ---
RADIOLOGY TECHS AT BEDSIDE FOR AM PCXR. NEW LINENS PLACED BEHIND PT. PT TOLERATED FAIR. SPO2 DROPPED TO MID 80'S AND RESP INCREASED TO 28 WHILE BEING CARED FOR. PT RETURNED TO BASELINE WITHIN 3 MIN OF REST
--- NOTE | 2017-07-27 05:00 | NUR ---
BROTHER HERE AT BEDSIDE UPDATE GIVEN QUESTIONS ANSWERED NO SIGNIFICANT CHANGE IN PT
[2017-07-27 05:05] LABS: BASOPHILS 0.1 % (0-2); EOSINOPHILS 0.1 % (0-7); HEMATOCRIT 26.2 % (42.0-54.0); HEMOGLOBIN 8.2 g/dL (13.5-17.5); IMMATURE GRANULOCYTES 1.3 % (0-5); LYMPHOCYTES 8.7 % (15-50); MCH 23.4 pg (26.0-34.0); MCHC 31.3 g/dL (31.0-37.0); MCV 74.6 fL (80.0-100.0); MEAN PLATELET VOLUME 9.9 fL (7.4-10.4); MONOCYTES 7.1 % (2-11); NEUTROPHILS 82.7 % (40-80); PLATELET COUNT 322 10x3/uL (130-400); RBC 3.51 10x6/uL (4.20-6.10); RDW 23.8 % (11.5-14.5); WBC 11.3 10x3/uL (4.8-10.8)
[2017-07-27 05:39] LABS: ALBUMIN 2.6 g/dL (3.4-5.0); ANION GAP 14.2 mmol/L (8-16); BILIRUBIN - TOTAL 0.45 mg/dL (0.2-1.3); CALCIUM 8.1 mg/dL (8.5-10.1); CARBON DIOXIDE 27.3 mmol/L (21.0-32.0); POTASSIUM - SERUM 4.5 mmol/L (3.5-5.1); PROTEIN - SERUM 6.5 g/dL (6.4-8.2)
[2017-07-27 05:40] LABS: CREATININE - SERUM 2.4 mg/dL (0.6-1.3)
--- NOTE | 2017-07-27 10:20 | NUR ---
DR. HUGO HERE. CONSENT FOR BRONCHOSCOPY PROVIDED BY BROTHER KANIKA. DR. HUGO TALKED WITH BROTHER. PATIEN CONTINUES TO BE SEDATED ON DIPRIVAN 65 MCG/KG/MIN AND FENTANYL 400 MCG. PATIENT DOES NOT WAKE UP TO LIGHT PAINFUL STIMULI. TOLERATED. HEAD FLAT TO BE PULLED UP IN BED. SAT DOWN TO 92%. VENT STILL ON 100%.
--- NOTE | 2017-07-27 19:30 | NUR ---
Shift assessment completed see flowshet. VSS stable at this time. Pt remains on ventilator with settings per flowsheet. Right IJ CVL dressing changed per hospital policy. site WNL no drainage or redness. All IVF and lines labeled and are current. Diprovan tubing to be changed with next medication administration. Pt continues to be monitored per standard ICU protocol with all alarms verifed and set. Urine collected from salazar tubing for sodium per orders sent to lab. New tube feeding bag of suplena started. residual checked 35cc note a large amount of air when checking residual. Feeding resumed at 20cc/hr with 60cc H2O Q4H resumed.
--- NOTE | 2017-07-27 20:00 | NUR ---
Family at bedside, quesitons answered and update given.
--- NOTE | 2017-07-27 21:00 | NUR ---
BROTHER AT BEDSIDE. UPDATE GIVEN AND QUESTIONS ANSWERED. NO SIGNINFICANT CHANGE IN PT. MEDS ADMINISTERED DOCUMENTED ON MAR
--- NOTE | 2017-07-27 23:00 | NUR ---
SHIFT REASSESSMENT COMPLETED SEE FLOWSHEET. PT IS TOLERATING TURNING AND REPOSTIONING BETTER TONIGHT THAN HE DID LAST NIGHT. CONTINUES TO BE TOTAL CARE WITH ALL ADLS PROVIDED FOR ORAL CARE Q2H AND TURNING AND REPOSTIONING Q2H. PILLOWS USED FOR SUPPORT, TO ELEVATED ARMS AND TO FLOAT HEELS. PT DOES HAVE SCDS ON. ALL IV LINES AND TUBE FEEDING LINES ARE CURRENT AND DATED AND LABELED APPROPRIATELY.
[2017-07-28] VITALS (24 sets, daily range): BP systolic 134–172; BP diastolic 56–84
--- NOTE | 2017-07-28 01:00 | NUR ---
ORAL CARE PROVIDED, WILL CON'T TO MONITOR
--- NOTE | 2017-07-28 03:07 | NUR ---
REASSESSMENT COMPLETE. NO ACUTE CHANGES FROM PREVIOUS ASSESSMENT. VSS. NO DISTRESS NOTED. WILL CONTINUE PLAN OF CARE.
[2017-07-28 04:32] LABS: BASOPHILS 0.1 % (0-2); EOSINOPHILS 0 % (0-7); HEMATOCRIT 26.2 % (42.0-54.0); HEMOGLOBIN 8.2 g/dL (13.5-17.5); IMMATURE GRANULOCYTES 1.8 % (0-5); MCH 22.8 pg (26.0-34.0); MCHC 31.3 g/dL (31.0-37.0); MONOCYTES 9.6 % (2-11); NEUTROPHILS 82.5 % (40-80); PLATELET COUNT 349 10x3/uL (130-400); RBC 3.59 10x6/uL (4.20-6.10); RDW 23.6 % (11.5-14.5); WBC 11.2 10x3/uL (4.8-10.8)
--- NOTE | 2017-07-28 04:45 | NUR ---
FAMILY AT BEDSIDE. BROTHER KANIKA. UPDATE GIVEN. QUESTIONS ANSWERED.
[2017-07-28 04:55] LABS: ALBUMIN 2.5 g/dL (3.4-5.0); ANION GAP 11.7 mmol/L (8-16); BILIRUBIN - TOTAL 0.4 mg/dL (0.2-1.3); CALCIUM 8.5 mg/dL (8.5-10.1); CARBON DIOXIDE 28.8 mmol/L (21.0-32.0); CREATININE - SERUM 2.2 mg/dL (0.6-1.3); POTASSIUM - SERUM 4.5 mmol/L (3.5-5.1); PROTEIN - SERUM 6.9 g/dL (6.4-8.2)
--- NOTE | 2017-07-28 07:00 | NUR ---
REC'D CARE OF PT. SEDATED ON VENT.
--- NOTE | 2017-07-28 08:28 | NUR ---
FAMILY A BEDSIDE. UPDATED.
--- NOTE | 2017-07-28 10:31 | NUR ---
REMAINS SEDATED ON VENT. WITHDRAWS TO PAIN. SINUS MADDY= CM RATE OF 44.
--- NOTE | 2017-07-28 10:47 | NUR ---
NUTRITION F/U CHART REVIEWED. PT REMAINS ON VENT. SEDATED WITH DIPRIVAN @ 55 CC/HR. NURSING REPORTS TUBE FEEDS CURRENTLY OFF SECONDARY TO HI RESIDUALS. WILL RESUME TUBE FEEDS WHEN APPROPRIATE. RD FOLLOWING
--- NOTE | 2017-07-28 11:21 | NUR ---
TF RESIDUALS ZERO AT THIS TIME. TF STARTED BACK.
--- NOTE | 2017-07-28 11:27 | NUR ---
REASSESSMENT COMPOLETED PER FLOW SHEET
--- NOTE | 2017-07-28 12:00 | NUR ---
FAMILY AT BEDSIDE. UPDATED.
--- NOTE | 2017-07-28 13:30 | NUR ---
REMAINS SEDATED ON VENT. NO ACUTE CHANGES.
--- NOTE | 2017-07-28 14:50 | NUR ---
REASSESSMENT COMPLETED PER FLOW SHEET
--- NOTE | 2017-07-28 15:38 | NUR ---
DR. JORDAN IN ICU. I SPOKE WITH HIM CONCERNING BRADYCARDIA. CARDIZEM ORDER CHANGED.
--- NOTE | 2017-07-28 16:00 | NUR ---
FAMILY AT BEDSIDE, UPDATED.
--- NOTE | 2017-07-28 19:00 | NUR ---
REC'D TO CARE, VIBRATING SCREEN OPERATOR PER FLOWSHEET. [facility] WITH FENTANYL AND DIPRIVAN GTT FOR DEEP SEDATION PER ORDER - SEE FLOWSHEET. CM - SB. R RADIAL A-LINE FLUSHED AND ZEROED WITH GOOD WAVE FORM NOTED. IVFS INFUSING TO R IJTL, DSG C/D/I. B/L SOFT WRIST RESTRAINTS ON PER MD ORDER. CHILDRESS CATH PATENT. HEELS BRIDGED AND ARMS ELEVATED ON PILLOWS. WILL CONT Q2H TURNING SCHEDULE WITH ORAL CARE AND ROM PER PROTOCOL. ALARMS ON.
[2017-07-28 19:11] LABS: AFB SPECIMEN PROCESSING Concentration (())
--- NOTE | 2017-07-28 23:00 | NUR ---
REASSESSMENT PER FLOWSHEET, NO ACUTE CHANGES. CONT POC, TURN Q2H. SEDATION TITRATION PER MD ORDERS. STILL DEEPLY SEDATED, RR 18 WITH VENT.
[2017-07-29] VITALS (24 sets, daily range): BP systolic 144–174; BP diastolic 53–77
--- NOTE | 2017-07-29 00:25 | NUR ---
INCREASE PEAK AIRWAY PRESSURES, NOT BREATHING OVER VENT. ADMIN PRN ATIVAN. WILL CONT CLOSE MONITORING.
--- NOTE | 2017-07-29 01:00 | NUR ---
REPOSITIONED UP IN BED, ROM DONE, ORAL CARE PROVIDED. VSS.
--- NOTE | 2017-07-29 03:00 | NUR ---
REASSESSMENT PER FLOWSHEET, NO ACUTE CHANGES. COMPLETE BATH AND LINEN CHANGE DONE.
--- NOTE | 2017-07-29 04:10 | NUR ---
AGITATION AND BITING TUBE AFTER CHEST XRAY - ADMIN ATIVAN IV PER PRN ORDER.
[2017-07-29 04:22] LABS: BASOPHILS 0.1 % (0-2); EOSINOPHILS 0 % (0-7); HEMATOCRIT 27.8 % (42.0-54.0); HEMOGLOBIN 8.7 g/dL (13.5-17.5); IMMATURE GRANULOCYTES 2.6 % (0-5); LYMPHOCYTES 3.9 % (15-50); MCHC 31.3 g/dL (31.0-37.0); MCV 73.5 fL (80.0-100.0); MONOCYTES 10.9 % (2-11); NEUTROPHILS 82.5 % (40-80); PLATELET COUNT 375 10x3/uL (130-400); RBC 3.78 10x6/uL (4.20-6.10); RDW 23.4 % (11.5-14.5); WBC 12.9 10x3/uL (4.8-10.8)
--- NOTE | 2017-07-29 05:36 | NUR ---
PT WITH HIGH PEAK PRESSURES, SEDATION INCREASED AND RT NOTIFIED - ETT SXN, PRESSURES COMING DOWN. WILL CONT CLOSE MONITORING.
--- NOTE | 2017-07-29 06:05 | NUR ---
NO SIGN OF DISTRESS AT THIS TIME, VSS.
[2017-07-29 07:06] LABS: ALBUMIN 2.4 g/dL (3.4-5.0); ANION GAP 12.5 mmol/L (8-16); BILIRUBIN - TOTAL 0.27 mg/dL (0.2-1.3); CALCIUM 8.4 mg/dL (8.5-10.1); CARBON DIOXIDE 27.6 mmol/L (21.0-32.0); POTASSIUM - SERUM 5.1 mmol/L (3.5-5.1); PROTEIN - SERUM 6.6 g/dL (6.4-8.2)
[2017-07-29 07:07] LABS: CREATININE - SERUM 1.4 mg/dL (0.6-1.3)
--- NOTE | 2017-07-29 07:15 | NUR ---
RECEIVED PT FOR CARE. PT RESTING IN BED WITH EYES CLOSED. ASSESSMENT COMPLETED. BILATERAL WRIST RESTRAINTS IN USE. REMOVED FOR RANGE OF MOTION OF UPPER EXTREMITIES.
--- NOTE | 2017-07-29 09:15 | NUR ---
NO VISITORS AT THIS TIME. PT'S VSS.
[2017-07-29 10:19] LABS: FUNGUS STAIN Final report (())
--- NOTE | 2017-07-29 12:15 | NUR ---
PT'S FAMILY AT BEDSIDE. UPDATED ON PT'S STATUS. VSS.
--- NOTE | 2017-07-29 15:19 | NUR ---
CHILDRESS CARE GIVEN WITH SURE STEP CHILDRESS WIPES.
--- NOTE | 2017-07-29 16:17 | NUR ---
PT HAS FAMILY AT BEDSIDE. UPDATED THEM ON PT'S STATUS.
--- NOTE | 2017-07-29 19:15 | NUR ---
RECEIVED CARE OF PT, ASSESSMENT PER FLOWSHEET. PT INTUBATED AND SEDATED ON VENT, 50% FIO2, HR SR AT A RATE OF 64, OGT WITH SUPLENA INFUSING AT 30CC/HR-PLACEMENT VERIFIED WITH ASUCULTATION OF SMALL AIR BOLUS, BS HYPOACTIVE, CHILDRESS CATH PATENT, PPP, RT RADIAL A-LINE FLUSHED AND ZEROED-GOOD WAVEFORM NOTED ON MONITOR. POSITIONED FOR COMFORT, ORAL CARE PROVIDED, WILL MONITOR.
--- NOTE | 2017-07-29 21:40 | NUR ---
PT BROTHER IN FOR VISITATION, DENIES ANY NEEDS AT THIS TIME.
--- NOTE | 2017-07-29 23:00 | NUR ---
REASSESSMENT PER FLOWSHEET, NO ACUTE CHANGES NOTED AT THIS TIME. ORAL CARE AND SUCTIONING PROVIDED, POSITIONED FOR COMFORT SUPPORTED WITH PILLOWS, CONT POC.
[2017-07-30] VITALS (24 sets, daily range): BP systolic 149–182; BP diastolic 54–84
--- NOTE | 2017-07-30 01:50 | NUR ---
REPOSITIONED FOR COMFORT SUPPORTED WITH PILLOWS, ORAL CARE AND SUCTIONING PROVIDED, VSS.
--- NOTE | 2017-07-30 03:15 | NUR ---
REASSESSMENT PER FLOWSHEET, NO ACUTE CHANGES NOTED AT THIS TIME, VSS, CONT POC.
[2017-07-30 04:45] LABS: BASOPHILS 0.1 % (0-2); EOSINOPHILS 0.1 % (0-7); HEMATOCRIT 26.8 % (42.0-54.0); HEMOGLOBIN 8.4 g/dL (13.5-17.5); IMMATURE GRANULOCYTES 2.1 % (0-5); LYMPHOCYTES 8.5 % (15-50); MCHC 31.3 g/dL (31.0-37.0); MCV 73.4 fL (80.0-100.0); MEAN PLATELET VOLUME 10.6 fL (7.4-10.4); MONOCYTES 3.1 % (2-11); NEUTROPHILS 86.1 % (40-80); PLATELET COUNT 416 10x3/uL (130-400); RBC 3.65 10x6/uL (4.20-6.10); RDW 24.1 % (11.5-14.5); WBC 14.3 10x3/uL (4.8-10.8)
[2017-07-30 05:31] LABS: ALBUMIN 2.2 g/dL (3.4-5.0); ANION GAP 12.3 mmol/L (8-16); BILIRUBIN - TOTAL 0.3 mg/dL (0.2-1.3); CALCIUM 8.7 mg/dL (8.5-10.1); CARBON DIOXIDE 26.9 mmol/L (21.0-32.0); CREATININE - SERUM 1.3 mg/dL (0.6-1.3); PROTEIN - SERUM 6.7 g/dL (6.4-8.2)
--- NOTE | 2017-07-30 05:50 | NUR ---
PT BROTHER IN FOR VISITATION, UPDATE PROVIDED AND ALL QUESTIONS ANSWERED.
--- NOTE | 2017-07-30 08:32 | NUR ---
ETT SECURE TO VENT BILATERAL LUNG SOUNDS EQUAL WITH CRACKLES NOTED. OG INFUSING WITH SPLENA AT 30 ML HOUR. HEAD OF BED ELEVATED 30 DEGREES. RIJ TRIPLE LUMEN CENTAL INE INFUSING WITH DIPRIVAN AT 40 MCG/KG/MIN, FENTANYL AT 500 MCG HOUR NS AT 30 ML HOUR. CHILDRESS CATH PATENT DRAINING RODGER URINE. SCD ON LOWER LEGS.
--- NOTE | 2017-07-30 10:40 | NUR ---
COMPLETE BED BATH GIVEN, LINEN CHANGED. NO SKIN BREAKDOWN NOTED. SMALL SMEAR OF LIGHT BROWN BM TOLERATED TURNING FROM SIDE TO SIDE POORLY PEAK PRESSURE UP TO 60'S. RETURN TO UPPER 30'S WHEN HEAD OF BED ELEVATED AND LEFT ALONE.
--- NOTE | 2017-07-30 10:44 | NUR ---
DIPRIVAN DECREASED TO 35 MCK/KG/MIN
--- NOTE | 2017-07-30 12:53 | NUR ---
FENTANYL DECREASED TO 400 MCG/HOUR PEAK PRESSURE MID 30'S
--- NOTE | 2017-07-30 17:17 | NUR ---
FENTANYL AT 400 MCG/HOUR, DIPRIVAN 30 MCG/HR. PEAK PRESSURE ONVENT 38. WILL TRY TO OPEN EYES AND SOME FACIAL MOVEMENT BUT RETURNS TO SLEEP. NO DISTRESS NOTED. RECTAL SUPP. X 2 GIVEN ORDERED. HEELS UP ON PILLOWS. SCD ON LOWER LEGS. RIJ TRIPLE LUMEN DRESSING INTACT WITHOUT REDNESS OR SWELLING AT SITE. NS INFUSING AT 30 ML HOUR. MONITOR SB WITH FREQ PAC. CHILDRESS CATH PATENT. NG INFUSING WITH SUPLENA AT 30 ML HOUR. 50 CC RESIDUAL.
--- NOTE | 2017-07-30 19:30 | NUR ---
RESUMED CARE OF PT, ASSESSMENT PER FLOWSHEET. PT INTUBATED AND SEDATED, NOT RESPONSIVE TO VERBAL OR PHYSICAL STIMULI, GAG NOTED WITH SUCTIONING, PPP, RT RADIAL A-LINE FLUSHED AND ZEROED, ARM BOARD IN PLACE, CHILDRESS CATH PATENT WITH GREEN URINE IN COLLECTION CHAMBER, OGT PLACEMENT VERFIED WITH AUSCULTATION OF SMALL AIR BOLUS, SUPLENA INFUSING AT 30CC/HR PER ORDER. ORAL CARE AND SUCTIONING PROVIDED, PT POSITIONED FOR COMFORT SUPPORTED WITH PILLOWS, WILL MONITOR.
--- NOTE | 2017-07-30 20:12 | NUR ---
PT BROTHER IN FOR VISITATION, UPDATE PROVIDED AND ALL QUESTIONS ANSWERED.
--- NOTE | 2017-07-30 23:45 | NUR ---
REASSESSMENT PER FLOWSHEET, NO ACUTE CHANGES NOTED AT THIS TIME. ORAL CARE AND SUCTIONING COMPLETED, REPOSITIONED FOR COMFORT.
[2017-07-31] VITALS (25 sets, daily range): BP systolic 139–166; BP diastolic 51–69
--- NOTE | 2017-07-31 01:00 | NUR ---
PT REPOSITIONED TO BACK, EXTREMITIES SUPPORTED WITH PILLOWS. ORAL CARE AND SUCTIONING PROVIDED, VSS, CONT TO MONITOR.
--- NOTE | 2017-07-31 03:00 | NUR ---
REASSESSMENT PER FLOWSHEET, NO ACUTE CHANGES NOTED AT THIS TIME. ORAL CARE AND SUCTIONING PROVIDED, POSITIONED FOR COMFORT SUPPORTED WITH PILLOWS, VSS, CONT POC.
[2017-07-31 04:05] LABS: BASOPHILS 0.1 % (0-2); EOSINOPHILS 0 % (0-7); HEMATOCRIT 27.8 % (42.0-54.0); HEMOGLOBIN 8.5 g/dL (13.5-17.5); IMMATURE GRANULOCYTES 3.7 % (0-5); LYMPHOCYTES 4.8 % (15-50); MCH 22.6 pg (26.0-34.0); MCHC 30.6 g/dL (31.0-37.0); MCV 73.9 fL (80.0-100.0); MEAN PLATELET VOLUME 9.7 fL (7.4-10.4); MONOCYTES 10.7 % (2-11); NEUTROPHILS 80.7 % (40-80); PLATELET COUNT 348 10x3/uL (130-400); RBC 3.76 10x6/uL (4.20-6.10); RDW 23.4 % (11.5-14.5); WBC 15.3 10x3/uL (4.8-10.8)
[2017-07-31 04:22] LABS: ALBUMIN 2.2 g/dL (3.4-5.0); ANION GAP 10.4 mmol/L (8-16); BILIRUBIN - TOTAL 0.21 mg/dL (0.2-1.3); CALCIUM 8.5 mg/dL (8.5-10.1); CARBON DIOXIDE 27.1 mmol/L (21.0-32.0); CREATININE - SERUM 1.2 mg/dL (0.6-1.3); POTASSIUM - SERUM 5.5 mmol/L (3.5-5.1); PROTEIN - SERUM 6.5 g/dL (6.4-8.2)
--- NOTE | 2017-07-31 04:30 | NUR ---
PT BROTHER IN FOR VISITATION, DENIES ANY NEEDS AT THIS TIME.
--- NOTE | 2017-07-31 08:28 | NUR ---
ETT SECURE BILATERAL LUNG SOUNDS EQUAL. AND CONGESTED. ABD SOFT. OG SECURE WITH SUPLENA INFUSING AT 30 ML HOUR AND FLUSH 60 Q 4 HOURS. 20 ML RESIDUAL. RIGHT IJ TRIPLE LUMEN CENTRAL LINE INFUSING WITH FENTANYL AT 600 MCG/HOUR, DIPRIVAN 30 MCG/KG/MIN. AND NS AT 30 ML HOUR. RIGHT RADIAL ALICE SECUREW WITHOUT REDNESS OR SWELLING SCD ON LOWER LEGS WORKING PROPERLY. CHILDRESS CATH PATENT.
--- NOTE | 2017-07-31 09:23 | NUR ---
REPOSITIONED WITH 3 NURSES ASSISTING. STILL SEDATED. MEDS GIVEN DOWN OG TUBE CHECK FOR PLACEMENT PRIOR TO GIVEN GOOD AIR BUBBLE HEARD IN ABD. TOLERATED WELL. BROTHER HERE QUESTIONS AND UPDATE GIVEN
--- NOTE | 2017-07-31 09:54 | NUR ---
LARGE AMOUNT YELLOW ORTIZ SECRETIONS FROM ETT AND MOUTH AND NOSE SUCTIONED.
--- NOTE | 2017-07-31 16:47 | NUR ---
LUNGS SOUNDS MUCH CLEARER THAN EARLIER TODAY. FAMILY HRE QUESTIONS ANSWERED. REPOSITIONED NO SKIN BREAKDOWN NOTED. PATIENT TOLERATED FAIR.
--- NOTE | 2017-07-31 19:20 | NUR ---
SHIFT ASSESSMENT COMPLETE. PT IS SEDATE AND UNABLE TO FOLLOW COMMANDS. PERRLA, 2MM, SLUGGISH REACTION TO LIGHT. ETT SIZE 8.0, 24 CM MID LIP LINE. VENT SETTINGS: A/C RATE OF 18, TIDAL VOLUME 650, PEEP 10, FI02 60%, O2 SAT 100%. R IJ INFUSING NS @ 30, DIPRIVAN @ 30 MCG/KG/MIN, FENTANYL @ 600 MCG/HR. OGT SECURED TO ETT, 5 CC RESIDUAL, SUPLENA RUNNING @ 30 CC/HR WITH A FLUSH OF 60 CC Q4H. CVP AND ART LINE ZEROED. CVP READIN. ART LINE READIN/61. S1S2 AUDIBLE, HR 53 BRADYCARDIA WITH PAC NOTED. RONCHI LUNG SOUNDS THROUGHOUT ALL LOBES. ABD IS LARGE AND SOFT, BS ACTIVE X4. CHILDRESS CATH DRAINING CLOUDY, CONCENTRATED URINE. ORAL CARE PROVIDED. WRIST RESTRAINTS AND SCD'S REMOVED AND SKIN ASSESSED, WNL. BED IN LOWEST POSITION. WILL CONT TO MONITOR.
--- NOTE | 2017-07-31 21:15 | NUR ---
CALLED HOUSE SUP IN REFERENCE TO MIRALAX. SHE STATED THAT SHE WILL BE ON THE UNIT SOON TO PULL THE MED. ORAL CARE PROVIDED. REPOSITIONED FOR COMFORT. BED IN LOWEST POSITION. PROPOFOL TUBING CHAGED AND DATED. SWAB CAPS ON. WILL CONT TO MONITOR.
--- NOTE | 2017-07-31 23:00 | NUR ---
REASSESSMENT COMPLETE. A-LINE BP READIN/52 GOOD WAVE FORM. HR 49 BRADYCARDIA WITH PAC. REPOSITIONED AND ORAL CARE PROVIDED, OPENED EYES TO STIMULATION. HE IS STILL UNABLE TO FOLLOW ANY COMMANDS. TEMP SLIGHTLY ELEVATED TO 100.1 AXILLARY. REMOVED BLANKETS TO COOL OFF PT. WILL REASSESS PROMPTLY. NO SIGNS OF ACUTE DISTRESS NOTED. WILL CONT WITH POC.
[2017-08-01] VITALS (25 sets, daily range): BP systolic 137–207; BP diastolic 52–96
--- NOTE | 2017-08-01 01:00 | NUR ---
ORAL CARE PROVIDED. REPOSITONEFD FOR COMFORT. TEMP 98.8 AXILLARY. COVERS PUT BACK ON PT. WILL CONT WITH POC.
--- NOTE | 2017-08-01 03:00 | NUR ---
REASSESSMENT COMPLETE. CRACKLES HEARD BILAT THROUGHOUT ALL LOBES. ORAL CARE PROVIDED. NO FURTHER CHANGES AT THIS TIME. TEMP 99.4 AXILLARY. VSS. WILL CONT TO MONITOR.
[2017-08-01 04:54] LABS: BASOPHILS 0 % (0-2); EOSINOPHILS 0.1 % (0-7); HEMATOCRIT 26.6 % (42.0-54.0); HEMOGLOBIN 8.1 g/dL (13.5-17.5); IMMATURE GRANULOCYTES 2.4 % (0-5); MCH 22.7 pg (26.0-34.0); MCHC 30.5 g/dL (31.0-37.0); MCV 74.5 fL (80.0-100.0); MEAN PLATELET VOLUME 9.5 fL (7.4-10.4); MONOCYTES 4.4 % (2-11); NEUTROPHILS 84.1 % (40-80); PLATELET COUNT 313 10x3/uL (130-400); RBC 3.57 10x6/uL (4.20-6.10); RDW 23.6 % (11.5-14.5); WBC 15.4 10x3/uL (4.8-10.8)
--- NOTE | 2017-08-01 05:05 | NUR ---
ORAL CARE PROVIDED. REPOSITIONED FOR COMFORT. CHILDRESS CARE PROVIDED. NO SIGNS OF ACUTE DISTRESS. WILL CONT WITH POC.
[2017-08-01 05:10] LABS: ALBUMIN 2.2 g/dL (3.4-5.0); ANION GAP 11.9 mmol/L (8-16); BILIRUBIN - TOTAL 0.21 mg/dL (0.2-1.3); CALCIUM 8.5 mg/dL (8.5-10.1); CARBON DIOXIDE 27.4 mmol/L (21.0-32.0); CREATININE - SERUM 1.3 mg/dL (0.6-1.3); POTASSIUM - SERUM 5.3 mmol/L (3.5-5.1); PROTEIN - SERUM 6.2 g/dL (6.4-8.2)
--- NOTE | 2017-08-01 07:00 | NUR ---
PT INTUBATED. PROPOFOL AT 30MCG/KG/MIN INFUSING ON R-IJ. NS INFUSING AT 30ML/HR. WOOL SHEARER WITH FENTANYL AT 600MCG/HR. ON VENT A/C R 18, TV 650, PEEP 10. ETT SIZE 8 LOCATED LIPLINE MIDLINE. OGT WITH SPLENA AT 30ML/HR WITH 60ML FLUSH Q HOURLY. CVP 12. ART LINE ON RIGHT RADIAL WITH BP OF 174/62 MAP 92 HR 50 SYNUS BRADYCARDIA, RR 18, O2SAT 97%, ORAL TEMP 98.7. CHILDRESS DEPENDENT TO RIGHT SIDE OF BED. NO SKIN ISSUES NOTED. BED LOW POSITION, CALL LIGHT IN REACH. NO OTHER NEEDS AT THIS TIME.
--- NOTE | 2017-08-01 12:26 | NUR ---
NUTRITION F/U CHART REVIEWED. PT REMAINS SEDATED ON VENT. STILL NO BM. SUPLENA AT 30 CC/HR. REGLAN AND MIRALAX. RD FOLLOWING
--- NOTE | 2017-08-01 14:20 | NUR ---
PT TRANSFERRED ONTO A BARIATRIC BED. PROPOFOL INCREASED TO 50MCG/KG/MIN. PATIENT'S BUTTOCKS HAS NO REDNESS. NO SKIN ISSUES NOTED AT THIS TIME. BED LOW POSITION, SIDE RAILS UP X 2. WILL CONTINUE TO MONITOR.
--- NOTE | 2017-08-01 15:45 | NUR ---
Wound care skin survey: Pt was placed on a larger hospital bed d/t his size. After transfer, skin was assessed. No skin breakdown noted. Feet have calloused areas but no open areas.\ Pt will need to be turned/repositioned q 2 hours. He is intubated/sedated and requires total care. Would recommend bridging heels as preventive measure also. Wound care will continue monitoring.
--- NOTE | 2017-08-01 19:30 | NUR ---
SHIFT ASSESSMENT COMPLETE. PERRLA, 2 MM, SLUGGISH REACTION TO LIGHT. ETT SIZE 8.0, 24 CM MID LIPLINE. VENT SETTINGS: A/C RATE 18, TIDAL VOLUME 650, FIO2 45%, PEEP 10.0, O2 SAT 96%. OGT SECURED TO ETT AND INFUSING SUPLENA @ 30 ML/HR, RESIDUAL OF 5CC. S1S2 AUDIBLE, HR 41 BPM SINUS MADDY. CVP AND A-LINE ZEROED. CVP READING 16, A-LINE 154/54. RONCHI HEARD BILAT THROUGHOUT ALL LOBES. ABD IS LARGE AND FIRM. BS ACTIVE X4. R IJ CVL INFUSING PROPOFOL @ 50 MCG/KG/MIN, FENTANYL @ 600 MCG/HR, AND NS @ 30 ML/HR. CHILDRESS CATH INTACT DRAINING CLOUDY CONCENTRATED URINE. SCDS AND RESTRAINTS REMOVED AND SKIN ASSESSED, WNL. [facility] II BED. ORAL CARE PROVIDED. WILL CONT TO MONITOR.
--- NOTE | 2017-08-01 21:20 | NUR ---
PT'S BROTHER AT BEDSIDE. UPDATED HIM ON PT'S STATUS. ORAL CARE PROVIDED. ABD IS LARGE AND FIRM. MAG CITRIATE INFUSED THROUGH OGT WELL MIRALAX AND PO MEDS. NO CHANGES NOTED. WILL CONT WITH POC.
--- NOTE | 2017-08-01 23:00 | NUR ---
REASSESSMENT COMPLETE. NO CHANGES NOTED AT THIS TIME. V/S: HR 41 SINUS MADDY, BP 162/66, CVP 17, O2 95%, TEMP 98.3 AXILLARY. ORAL CARE PROVIDED. NO FURTHER CHANGES NOTED. NO BM AT THIS TIME. WILL CONT TO MONITOR.
[2017-08-02] VITALS (25 sets, daily range): BP systolic 123–196; BP diastolic 58–92
--- NOTE | 2017-08-02 01:00 | NUR ---
NO CHANGES NOTED AT THIS TIME. PT STILL HAS NOT HAD A BM. VSS. ORAL CARE PROVIDED. WILL CONT TO MONITOR.
--- NOTE | 2017-08-02 03:00 | NUR ---
REASSESSMENT COMPLETE. COMPLETE LINEN CHANGE AND BED BATH. LARGE BM EXPELLED, LIGHT BROWN, WATERY. VSS. NO FURTHER CHANGES AT THIS TIME. ORAL CARE PROVIDED. WILL CONT TO MONITOR.
--- NOTE | 2017-08-02 05:00 | NUR ---
PARTIAL LINEN CHANGE COMPLETE. LARGE LIGHT BROWN, LIQUID STOOL NOTED. UPON MOVING PT HIS O2 SATURATION STARTED TO DECLINE. ADMINISTERED PRN ANXIETY MED AND O2 SAT CAME BACK UP. NO FURTHER ISSUES. WILL CONT TO MONITOR.
[2017-08-02 05:56] LABS: BASOPHILS 0.1 % (0-2); EOSINOPHILS 0.1 % (0-7); HEMATOCRIT 28.2 % (42.0-54.0); HEMOGLOBIN 8.7 g/dL (13.5-17.5); IMMATURE GRANULOCYTES 3.1 % (0-5); LYMPHOCYTES 4.3 % (15-50); MCH 22.7 pg (26.0-34.0); MCHC 30.9 g/dL (31.0-37.0); MCV 73.6 fL (80.0-100.0); MEAN PLATELET VOLUME 10.1 fL (7.4-10.4); MONOCYTES 8.7 % (2-11); NEUTROPHILS 83.7 % (40-80); PLATELET COUNT 320 10x3/uL (130-400); RBC 3.83 10x6/uL (4.20-6.10); RDW 23.9 % (11.5-14.5); WBC 14.8 10x3/uL (4.8-10.8)
[2017-08-02 06:28] LABS: ALBUMIN 2.2 g/dL (3.4-5.0); ANION GAP 13.1 mmol/L (8-16); BILIRUBIN - TOTAL 0.23 mg/dL (0.2-1.3); CALCIUM 8.7 mg/dL (8.5-10.1); CARBON DIOXIDE 26.2 mmol/L (21.0-32.0); CREATININE - SERUM 1.1 mg/dL (0.6-1.3); MAGNESIUM - SERUM 2.5 mg/dL (1.8-2.4); POTASSIUM - SERUM 5.3 mmol/L (3.5-5.1); PROTEIN - SERUM 6.5 g/dL (6.4-8.2)
--- NOTE | 2017-08-02 07:00 | NUR ---
PT AWAKE AND ALERT. ON ROOM AIR WITH 02 SAT OF 98%. REPORTS NO PAIN AT THIS TIME. BP IS 90/56 MAP 74, HR 61, ORAL TEMP 97.7. SKIN WARM AND PINK. PALPABLE PERIPHERAL PULSES +2. CVL ON RIGHT FEMORAL SALINE LOC. DRESSING NEEDS TO BE CHANGED. PT DENIES OTHER NEEDS AT THIS TIME. WILL CONTINUE TO MONITOR.
--- NOTE | 2017-08-02 07:00 | NUR ---
PT SEDATED. PROPOFOL INFUSING AT 50MCG/KG/MIN ON R-IJ CVL. NS INFUSING AT 30ML/HR. CVL DRESSING CDI. FENTANYL GIS PROGRAMMER AT 600 MCG/HR. BP IS ELEVATED 189/78 MAP 103. HR 38 BRADYCARDIC. CVP 21, O2 SAT 94%, ORAL TEMP 97.7. VENT SETTINGS FIO2 45%, TV 650, RATE 18, PEEP 10. SIS2 AUDIBLE. RHONCHI HEARD THROUGH OUT LUNG FIELD. ART LINE ON RIGHT RADIAL ARTERY. FOLLEY DEPENDENT ON RIGHT SIDE OF BED. CLOUDY CONCENTRATED URINE NOTED. BED LOW POSTION, SIDE RAILS UP X 2. WILL CONTINUE TO MONITOR.
--- NOTE | 2017-08-02 08:36 | NUR ---
SPOKE WITH DR. HERRERA ABOUT PT HR BEING 38 AND BP PRESSURE BEING 197/83. HE ORDERED TO DISCONTINUE CARDIZEM. START NORVASC 10MG ONCE A DAY AND LISINIPRIL 20MG TWICE DAILY.
--- NOTE | 2017-08-02 10:29 | NUR ---
NUTRITION F/U CHART REVIEWED, PT REMAINS SEDATED ON VENT. NURSING REPORTS RECENT BM. SUPLENA TUBE FEEDS AT 30 CC/HR. RD FOLLOWING
--- NOTE | 2017-08-02 11:19 | NUR ---
SPOKE WITH DR. HERRERA ABOUT BP BEING IN THE 190S. HE ORDERED CLONIDINE 0.1MG TO 0.2 MG PRN FOR SBP >180.
--- NOTE | 2017-08-02 12:29 | NUR ---
GAVE CATAPRES AROUND 1130 FOR BP OF 197/83. BP AT THIS TIME 179/74. WILL CONTINUE TO MONITOR.
--- NOTE | 2017-08-02 17:22 | NUR ---
BP AT THIS TIME 156/61. HR 38 SYNUS BRADYCARDIC. WILL CONTINUE TO MONITOR.
--- NOTE | 2017-08-02 19:20 | NUR ---
SHIFT ASSESSMENT COMPLETE. PERRLA, 2 MM, SLUGGISH REACTION TO LIGHT. ETT SIZE 8.0, 24 CM LIP LINE MIDLINE. OGT SECURED TO ETT. DR. NAIK AT BEDSIDE. INCREASED TF TO 40 CC PER HER INSTRUCTION, RESIDUAL OF 17 CC. VENT SETTINGS: A/C RATE 15, TV 650, FIO2 50%, PEEP 10, O2 SAT 96%. S1S2 AUDIBLE, HR 39 SINUS MADDY. A-LINE AND CVP ZEROED. A-LINE READS 140/58 AND CVP READS 15. RONCHI HEARD BILAT THROUGHOUT ALL LOBES. ABD IS LARGE AND FIRM, BS ACTIVE X4. CHILDRESS CATH INTACT DRAINING CLOUDY CONCENTRATED URINE. R RADIAL WRIST COVER PRESENT. RESTRAINTS REMOVED AND SKIN ASSESSED, WNL. RADIAL AND PEDAL PULSES PALP. REPOSITIONED FOR COMFORT. ORAL CARE PROVIDED. WILL CONT WITH POC.
--- NOTE | 2017-08-02 21:00 | NUR ---
REPOSITIONED FOR COMFORT. ORAL CARE PROVIDED. DIPRIVAN TUBING CHANGED AND LABELED. NO SIGNS OF ACUTE DISTRESS NOTED. WILL CONT WITH POC.
--- NOTE | 2017-08-02 23:00 | NUR ---
REASSESSMENT COMPLETE. ORAL CARE PROVIDED, REPOSITONED FOR COMFORT. LUNG SOUNDS ARE DIMINISHED. V/S: TEMP 97.5 AXILLARY, HR 37 SINUS MADDY, BP 149/60, RR 15, O2 SAT 96%, CVP 13. BS ACTIVE X4. S1S2 AUDIBLE. RADIAL AND PEDAL PULSES PALP. NO CHANGES NOTED. WILL CONT WITH POC.
[2017-08-03] VITALS (24 sets, daily range): BP systolic 127–203; BP diastolic 49–99
--- NOTE | 2017-08-03 03:00 | NUR ---
REASSESSMENT COMPLETE. NO CHANGES NOTED AT THIS TIME. CHILDRESS CARE PROVIDED. CHANGED TF BAG AND TUBING. VSS. ORAL CARE PROVIDED. BED IN LOWEST POSITION. WILL CONT TO MONITOR.
[2017-08-03 04:55] LABS: BASOPHILS 0 % (0-2); EOSINOPHILS 0 % (0-7); HEMATOCRIT 28.6 % (42.0-54.0); HEMOGLOBIN 8.8 g/dL (13.5-17.5); IMMATURE GRANULOCYTES 2.2 % (0-5); LYMPHOCYTES 2.7 % (15-50); MCH 22.8 pg (26.0-34.0); MCHC 30.8 g/dL (31.0-37.0); MCV 74.1 fL (80.0-100.0); MEAN PLATELET VOLUME 10.2 fL (7.4-10.4); MONOCYTES 6.6 % (2-11); NEUTROPHILS 88.5 % (40-80); PLATELET COUNT 330 10x3/uL (130-400); RBC 3.86 10x6/uL (4.20-6.10); RDW 23.8 % (11.5-14.5); WBC 16.7 10x3/uL (4.8-10.8)
--- NOTE | 2017-08-03 05:10 | NUR ---
HR DECREASED TO 34 BPM. DECREASED FENTANYL TO 450 MCG/HR. ORAL CARE PROVIDED. REPOSITIONED FOR COMFORT. NO FURTHER CHANGES NOTED. WILL CONT WITH POC.
[2017-08-03 05:22] LABS: ALBUMIN 2.3 g/dL (3.4-5.0); ALKALINE PHOSPHATASE 80 U/L (46-116); ALT (SGPT) 59 U/L (10-68); BILIRUBIN - TOTAL 0.19 mg/dL (0.2-1.3); CALC OSMOLALITY 287 mosm/kg (275-300); CARBON DIOXIDE 26.5 mmol/L (21.0-32.0); CHLORIDE - SERUM 105 mmol/L (98-107); CREATININE - SERUM 0.9 mg/dL (0.6-1.3); GLUCOSE 179 mg/dL (74-106); MAGNESIUM - SERUM 2.3 mg/dL (1.8-2.4); PHOSPHOROUS 4.8 mg/dL (2.5-4.9); POTASSIUM - SERUM 5.6 mmol/L (3.5-5.1); PROTEIN - SERUM 5.9 g/dL (6.4-8.2); SODIUM 139 mmol/L (136-145); UREA NITROGEN 28 mg/dL (7-18); eGFR NON AFRICAN AMERICAN > 90 mL/min (90-120)
--- NOTE | 2017-08-03 05:39 | NUR ---
CVL DRESSING CHANGE TO R IJ USING SKIVER OPERATOR. WILL CONT WITH POC.
--- NOTE | 2017-08-03 07:00 | NUR ---
PT SEDATED ON VENT. TV 650, R 15, FIO2 50%,. PEEP 10. ETT SIZE 8. LOCATED LIP LINE MIDLINE 24. O2SAT 97%, BP 155/66 MAP 89, HR 35. RHONCHI AUDIBLE ON RUL,RML,RLL. TESHA AND LLL CLEAR. S1S2 AUDIBLE. RADIAL PULSES 2+ EQUAL BILATERAL. PEDAL PULSES 1+ EQUAL BILATERAL. SKIN WARM AND DRY. BS HYPOACTIVE RUQ, RLQ, AND LLQ. ACTIVE ON LUQ. ABDOMEN LARGE AND FIRM. ART LINE RIGHT RADIAL ARTERY. WRIST RESTRAINTS IN PLACE. CHILDRESS DEPENDENT ON RIGHT SIDE OF BED. URINE YELLOW AND CLOUDY. BED LOW POSITION. SIDE RAILS UP X 2. BARIATRIC BED. WILL CONTINUE TO MONITOR.
--- NOTE | 2017-08-03 07:25 | NUR ---
PT HR 34-35. DECREASED SEDATION. FENTANYL DECREASED TO 300MCG/HR AND DIPRIVAN 30MCG/KG/MIN. WILL CONTINUE TO MONITOR.
--- NOTE | 2017-08-03 09:17 | NUR ---
MORNING MEDS GIVEN. BP ELEVATED 175/68 MAP 97, HR 39. NORVASC AND LISINIPRIL GIVEN. WILL CONTINUE TO MONITOR BP.
--- NOTE | 2017-08-03 10:01 | NUR ---
APRESOLINE 10MG IV GIVEN FOR SBP IN THE 190S. HR 63. WILL CONTINUE TO MONITOR.
--- NOTE | 2017-08-03 10:30 | NUR ---
PT HAD BM. PERICARE PROVIDED. PULLED UP IN BED AND REPOSTIONED. PT DID NOT TOLORATE. SBP INCREASED ABOVE 220. INCREASED PROPOFOL BACK UP TO 50MCG/KG/MIN. BP IS SLOWLY DECREASING WILL CONTINUE TO MONITOR.
--- NOTE | 2017-08-03 10:45 | NUR ---
BP 210/99. CATAPRES 0.2MG GIVEN VIA OG TUBE. HR 70. O2 SAT 90%.
--- NOTE | 2017-08-03 11:59 | NUR ---
CARAFATE HELD. PT SPITTING UP. PAUSED TUBE FEEDINGS AND ADMINISTERED 8MG ZOFRAN IV FOR NAUSEA/VOMITING. BP 155/65, HR 53. PROPOFOL INFUSING AT 50 MCG/KG/MIN, FENTANYL INFUSING AT 350 MCG/HR. WILL CONTINUE TO MONITOR.
--- NOTE | 2017-08-03 12:56 | NUR ---
PT RESTING COMFORTABLY. BP 141/62, HR 49. WILL CONTINUE TO MONITOR.
[2017-08-03 13:16] LABS: FUNGUS CULTURE RESULT 1 Candida albicans (())
--- NOTE | 2017-08-03 14:45 | NUR ---
SLOWY DECREASING SEDATION. PROPOFOL CURRENTLY INFUSING AT 35 MCG/KG/MIN. HR 40 AT THIS TIME. WILL CONTINUE TO MONITOR.
--- NOTE | 2017-08-03 19:00 | NUR ---
REPORT RECEIVED AND ASSESSMENT COMPLETED. SEE FLOWHSEET FOR FULL DETAILS. PT HAS ARDS. CANDI HEARD THROUGHOUT. DIMMINISHED IN LOWER LOBES. HR IN THE 40'S AT THIS TIME. CARDIOLOGY AWARE. NO ATROPINE ORDERED AT THIS TIME. WILL MONITOR THROUGHOUT SHIFT
--- NOTE | 2017-08-03 21:00 | NUR ---
2100 MEDS GIVEN. APRESOLINE GIVEN FOR ELVATED B/P. FAMILY AT BEDSIDE. UPDATED ON PT CONDITION. WILL CONTINUE TO MONITOR
--- NOTE | 2017-08-03 23:00 | NUR ---
REASSESSMENT COMPLETED. SEE FLOWSHEET FOR FULL DETAILS. PT B/P HAS BEEN ELEVATED. PRN B/P MEDS GIVEN. WILL CONTINUE TO MONITOR.
[2017-08-04] VITALS (24 sets, daily range): BP systolic 116–166; BP diastolic 49–72
--- NOTE | 2017-08-04 01:15 | NUR ---
B/P BACK WITHIN PARAMETERS. WILL CONTINUE TO MONITOR THROUGHOUT SHIFT
--- NOTE | 2017-08-04 03:00 | NUR ---
REASSESSMENT COMPLETED. SEE FLOWSHEET FOR FULL DETAILS. TUBE FEEDING STOPPED AT THIS TIME. TUBE FEED SEEN COMING OUT OF PT MOUTH. WILL RECHECK RESIDUAL, AND RESTART FEED LATER IN SHIFT. NO SIGNS OF ASPIRATION AT THIS TIME. WILL CONTINUE TO MONITOR.
--- NOTE | 2017-08-04 03:24 | NUR ---
VENT CIRCUIT CHANGED
--- NOTE | 2017-08-04 05:00 | NUR ---
FAMILY AT BEDSIDE. UPDATED ON EVENINGS EVENTS. PT HAD BM. COMPLETE LINEN CHANGE PERFORMED. VSS. WILL MONITOR
[2017-08-04 05:02] LABS: BASOPHILS 0.1 % (0-2); EOSINOPHILS 0 % (0-7); HEMOGLOBIN 8.9 g/dL (13.5-17.5); IMMATURE GRANULOCYTES 2.8 % (0-5); LYMPHOCYTES 2.8 % (15-50); MCH 22.7 pg (26.0-34.0); MCHC 30.7 g/dL (31.0-37.0); MEAN PLATELET VOLUME 10.6 fL (7.4-10.4); MONOCYTES 6.2 % (2-11); NEUTROPHILS 88.1 % (40-80); PLATELET COUNT 355 10x3/uL (130-400); RBC 3.92 10x6/uL (4.20-6.10); RDW 24.2 % (11.5-14.5)
[2017-08-04 05:19] LABS: CALC OSMOLALITY 280 mosm/kg (275-300); CALCIUM 8.9 mg/dL (8.5-10.1); CARBON DIOXIDE 26.9 mmol/L (21.0-32.0); CHLORIDE - SERUM 104 mmol/L (98-107); CREATININE - SERUM 0.9 mg/dL (0.6-1.3); GLUCOSE 140 mg/dL (74-106); MAGNESIUM - SERUM 2.2 mg/dL (1.8-2.4); PHOSPHOROUS 4.8 mg/dL (2.5-4.9); POTASSIUM - SERUM 5.4 mmol/L (3.5-5.1); SODIUM 137 mmol/L (136-145); UREA NITROGEN 27 mg/dL (7-18); eGFR NON AFRICAN AMERICAN > 90 mL/min (90-120)
--- NOTE | 2017-08-04 09:37 | NUR ---
NUTRITION F/U CHART REVIEWED. PT REMAINS SEDATED ON VENT. SUPLENA @ 40 CC/HR PROVIDING 1728 KCAL, 43 GM PROTEIN PER DAY. DIPRIVAN @ 40 CC/HR PROVIDING 1056 KCAL PER DAY. TOTAL 2784 KCAL, 43 GM PROTEIN PER DAY. IF UNABLE TO DECREASE DIPRIVAN RATE, WOULD RECOMMEND DECREASE TUBE FEED RATE TO 35 CC/HR. RD FOLLOWING
--- NOTE | 2017-08-04 19:15 | NUR ---
PT IN BED EYES CLOSED AND CHEST RISING. ON VENT AT 50%, TV 650, AP 15, PEEP 10. RECEIVING FENTANYL, PROPOFOL, NS VIA RIGHT JUGULAR. NO CONCERNS NOTED. SEDATION CONTINUED. WILL CONTINUE TO OBSERVE.
--- NOTE | 2017-08-04 23:15 | NUR ---
PT WITHOUT S/S OF DISTRESS. SEDATION CONTINUES. PT ON BACK AT THIS TIME. NO CONCERN NOTED AT THIS TIME. WILL CONTINUE TO OBSERVE.
[2017-08-05] VITALS (25 sets, daily range): BP systolic 132–210; BP diastolic 59–89
--- NOTE | 2017-08-05 01:00 | NUR ---
PT REMAINS UNDER SEDATION. NO S/S OF DISTRESS NOTED. NO CONCERNS NOTED AT THIS TIME. WILL CONTINUE TO OBSERVE.
--- NOTE | 2017-08-05 03:10 | NUR ---
PT IN BED UNDER SEDATION. HR 37-40. NO CONCERNS NOTED CALL LIGHT IN REACH
--- NOTE | 2017-08-05 05:00 | NUR ---
PT CONTINUOUS SEDATION. NO S/S OF DISTRESS. NO CONCERNS NOTED AT THIS TIME. WILL CONTINUE TO OBSERVE.
[2017-08-05 05:04] LABS: BASOPHILS 0.1 % (0-2); EOSINOPHILS 0 % (0-7); HEMATOCRIT 28.9 % (42.0-54.0); IMMATURE GRANULOCYTES 2.5 % (0-5); LYMPHOCYTES 2.9 % (15-50); MCH 22.8 pg (26.0-34.0); MCHC 31.1 g/dL (31.0-37.0); MCV 73.4 fL (80.0-100.0); MEAN PLATELET VOLUME 10.3 fL (7.4-10.4); MONOCYTES 5.7 % (2-11); NEUTROPHILS 88.8 % (40-80); PLATELET COUNT 341 10x3/uL (130-400); RBC 3.94 10x6/uL (4.20-6.10); RDW 23.9 % (11.5-14.5); WBC 17.3 10x3/uL (4.8-10.8)
[2017-08-05 05:10] LABS: CALC OSMOLALITY 281 mosm/kg (275-300); CARBON DIOXIDE 25.8 mmol/L (21.0-32.0); CHLORIDE - SERUM 105 mmol/L (98-107); CREATININE - SERUM 0.8 mg/dL (0.6-1.3); GLUCOSE 155 mg/dL (74-106); POTASSIUM - SERUM 5.3 mmol/L (3.5-5.1); SODIUM 137 mmol/L (136-145); UREA NITROGEN 27 mg/dL (7-18); eGFR NON AFRICAN AMERICAN > 90 mL/min (90-120)
--- NOTE | 2017-08-05 09:35 | NUR ---
DR. HERRERA'S OFFICE NOTIFIED OF RE CONSULT.
--- NOTE | 2017-08-05 10:50 | NUR ---
FIO2 DECREASED TO 40% AND PEEP DECREASED TP [address] LAWSON.
--- NOTE | 2017-08-05 11:00 | NUR ---
CAMPAIGN MARKETING MANAGER NOTIFIED TO RELAY MESSAGE TO DR. HERRERA REGARDING CONSULT.
[2017-08-05 13:15] LABS: FUNGUS STAIN Final report (())
--- NOTE | 2017-08-05 16:56 | EC ---
PATIENT:CALOS HAAS DATE OF SERVICE: 07/22/17 SEX: M MEDICAL RECORD: [id number] DATE OF : 59 LOCATION:[place] [address] AGE OF PATIENT: 61 ADMISSION DATE: 07/22/17 REFERRING PHYSICIAN: INTERPRETING PHYSICIAN: JIN ESTRELLA MD ECHOCARDIOGRAM REPORT ECHO CHARGES 4 ECHO COMPLETE CLINICAL DIAGNOSIS: SOB HX OF HTN/TACHYCARDIA ECHOCARDIOGRAPHIC MEASUREMENTS (adult normal given) AC root (d.<3.7cm) 3.3 cm LV Septum d (<1.2 cm> 1.4 cm Valve Excursion 2.1 cm LV Septum (systole) 1.6 cm Left Atria (s.<4.0cm> 4.3 cm LVPW d(<1.2cm) 1.6 cm RV (d.<2.3cm) 3.8 cm LVPW (sytole) 1.9 cm LV diastole(<5.6CM) 4.6 cm MV E-F(>70mm/sec) cm LV systole 3.3 cm LVOT Diameter 2.0 cm MV exc.(>10mm) 1.7 cm Est.ejection fraction (50-75%) % Pericardial Effusion N DOPPLER: LVIT cm/sec A 123 cm/sec E 37.0 cm/sec LA cm/sec RVSP 24 mmHg LVOT 116 cm/sec AOP1/2T m/s Asc. Ao 172 cm/sec RVOT 121 cm/sec RA cm/sec PA 147 cm/sec AV Gradient Peak 11.89mmHg AV Mean 7.84 mmHg AV Area 1.9 cm MV Gradient Peak 9.03 mmHg MV Mean 3.54 mmHg MV Area cm COMMENTS: Bacteriologist Food: Albert MAY Emergency Department Clinician: 1 Dr. Estrella TAPE# PACS DATE OF SERVICE: 07/24/2017 PROCEDURE: Echocardiogram FINDINGS: 1. Left ventricular chamber size is within normal limits. Left ventricular systolic function is normal. Overall ejection fraction estimated at 60%. 2. Left atrium is enlarged at 4.3 cm. Right atrium and right ventricular chamber sizes are as well mildly dilated. 3. Valvular structures have normal structure and motion. ECHOCARDIOGRAM REPORT [id number] CALOS HAAS 4. Doppler interrogation reveals mild mitral regurgitation, mild tricuspid regurgitation, no other valvular insufficiency or stenosis. Pulmonary systolic pressure is normal estimated at 24 mmHg. 5. No evidence of pericardial effusion or left ventricular thrombus. TRANSINT:[id number] Voice Confirmation ID: [id number] DOCUMENT ID: [id number] JIN ESTRELLA MD at 1656 CC: [id number] DICTATION DATE: 07/25/17913 GEAR GENERATOR SET UP OPERATOR: 07/25/17 1126 ADM IN [facility] [address] [place] [address]
--- NOTE | 2017-08-05 16:56 | CN ---
PATIENT NAME:CALOS HAAS MEDICAL RECORD: [id number] : 59 LOCATION:[place] ADMIT DATE: 07/22/17 ACCOUNT: [id number] CONSULTING PHYSICIAN: JIN HERRERA MD REFERRING PHYSICIAN: EVANGELINA COY DO DATE OF CONSULTATION: 07/22/2017 DATE OF SERVICE: 07/22/2017 CARDIOLOGY CONSULTATION DIAGNOSES: 1. Gastrointestinal bleed, acute. 2. Atrial fibrillation. 3. Xarelto anticoagulation. HISTORY OF PRESENT ILLNESS: This is a gentleman who is in the hospital with atrial fibrillation, started on Xarelto. He has had a past history of non-tolerance of Xarelto secondary to gastrointestinal bleed. He went home yesterday, started having a recurrent GI bleed. His hemoglobin is now 7. PHYSICAL EXAMINATION: GENERAL APPEARANCE: Well-nourished, well-developed, appears stated age. Level of distress, comfortable. PSYCHIATRIC: Mental status, alert, normal affect. Orientation, oriented to time, place and person. EYES: Lids and conjunctiva, noninjected. No discharge, no pallor. ENT: Lips, teeth, gums, normal dentition. Oropharynx, no cyanosis, no pallor. NECK: Carotid arteries, bilateral normal upstroke, no bruits, no thrills. JUGULAR VEINS: No jugular venous pressure or distention. CERVICAL LYMPH NODES: Nontender, nonenlarged. THYROID: Not enlarged. Nontender. No nodules. LUNGS: Respiratory effort, unlabored. CHEST: Normal curvature. No thoracic deformity. No chest wall tenderness. Percussion, resonant. Auscultation, clear. No wheezes, no rales, no rhonchi. CARDIOVASCULAR: Precordial exam, nondisplaced. No heaves or pericardial thrills. Rate and rhythm, regular. Heart sounds, normal S1, normal S2. No S3, no gallop, no rub. Systolic murmur, not heard. Diastolic murmur, not heard. EXTREMITIES: No cyanosis, no edema. Peripheral pulses, full and equal in all extremities, except as noted. No bruits appreciated. ABDOMEN: Soft, nondistended. Normal aorta. No bruit. Nontender. No masses. Liver, nontender, no hepatomegaly. Spleen, nontender, no splenomegaly MUSCULOSKELETAL: No joint tenderness. No joint swelling. No erythema. NEUROLOGICAL: Normal gait, normal strength, normal tone. SKIN: Warm and dry. REVIEW OF SYSTEMS: The patient reports easy bruising but reports no swollen glands. The patient reports no fever, no night sweats, no significant weight gain, no significant weight loss. No significant exercise tolerance. The patient reports no dry eyes, no irritation, no vision change. Patient reports no difficulty hearing and no ear pain. Patient reports no frequent nose bleeds or nose and sinus problems. Patient reports on arm pain on exertion. No shortness of breath while lying down. No history of heart murmur. Patient reports no cough, no wheezing or coughing up blood. Patient reports no abdominal pain, no vomiting. Normal appetite. No diarrhea and not vomiting CONSULT REPORT [id number] CALOS HAAS blood. No nausea and no constipation. Patient reports no incontinence. No difficulty urinating. No hematuria. No increased frequency. Patient reports no muscle aches. No weakness, no arthralgias, no back pain. No swelling of the extremities. Patient reports no abnormal mole, no jaundice, no rashes. Reports no loss of consciousness. No weakness and no numbness. No seizures, dizziness, or headaches. The patient reports no depression, no sleep disturbance, feeling safe in a relationship and no alcohol abuse. Patient reports on fatigue. Reports no runny nose or sinus pressure. No itching, no hives, and no frequent sneezing. OVERALL IMPRESSION: Atrial fibrillation. We will have ago without anticoagulation as the risk of bleeding outweighs the benefit from a stroke prophylaxis standpoint, would not try to rechallenge him with anticoagulation at this time. TRANSINT:[id number] Voice Confirmation ID: [id number] DOCUMENT ID: [id number] JIN HERRERA MD at 1656 CC: [id number] DICTATION DATE: 07/22/17 1639 FURNACE RELINER: 07/22/171910 ADM IN [facility] [address] [place] [address]
--- NOTE | 2017-08-05 19:00 | NUR ---
REPORT RECIEVED, SHIFT ASSESSMENT COMPLETE, PLEASE SEE FLOW SHEETS FOR DETAILS. ON VENT AND SEDATED, OPEN EYES TO PAIN, MAKES NO INDICATIONS OF COMMUNICATIONS. PUPILS 3MM AND SLUGGISH. LUNGS WITH CRACKLES IN UPPER LOBES AND DIMINISHED IN LOWER LOBES, VENT SETTINGS FOLLOWS; SIMV RATE: 15, T.V.: 600, O2: 40%, PEEP: 8, P.S.: 15. S1S2 HEARD AND PPP, A-LING RIGHT WRIST WITH PROTECTORY, EXTREMETY WARM AND PINK, MONITORING BP. CAP REFIL <3 SEC.. NSR NOTED ON MONITOR. BS ACTIVE X4 QUAD. OGT WITH FEEDING OF SUPLENA @ 35 WITH FLUSH 60ML Q4H INFUSING, RESIDUAL CHECK YEILDED 105ML, THIS WAS RETURNED AND FEEDING RESUMED. CHILDRESS IN PLACE AND DRAINING VIA GRAVITY, URINE IS CLOUDY AND CONCENTRATED WITH HINTS OF BLOOD. ON BARIMAX II BED, TURNS FROM SIDE TO SIDE Q15M. ORAL CARE PROVIDED ATT, VSS, BED LOW AND LOCKED, WILL CPOC.
--- NOTE | 2017-08-05 21:00 | NUR ---
ORAL CARE PROVIDED, BARIMAXX II BED ON AUTO TURN Q15MIN, THIS WAS OBSERVED. VSS, BED LOW AND LOCKED. WILL CPOC.
[2017-08-05 21:08] LABS: AFB SPECIMEN PROCESSING Concentration (())
--- NOTE | 2017-08-05 23:00 | NUR ---
REC'D REPORT FROM OUTGOING RN - PT RESTING IN BED - EYES OPENING SPONTANIOUSLY CONT POC
--- NOTE | 2017-08-05 23:24 | NUR ---
Gave report to Tracey GUERRA, She will resume care of pt.
[2017-08-06] VITALS (30 sets, daily range): BP systolic 108–207; BP diastolic 43–91
--- NOTE | 2017-08-06 00:13 | NUR ---
ASSESSMENT COMPLETE - GIVE HYDRALIZINE FOR ELEVATED B/P - CPOC
--- NOTE | 2017-08-06 01:27 | NUR ---
CHANGED FENTANYL SYRINGE - CPOC
--- NOTE | 2017-08-06 02:43 | NUR ---
CHANGED STAT LOCK CLOSER TO MEATUS. REMOVED OLD STAT LOCK WITH ACHOLOL PER POLICY - URINE OUTPUT 1900 MLs - CHILDRESS CARE COMPLETE - CHANGED TUB FEEDING PER POLICY. PT OPENS EYES AD CHILANGO - CPOC
--- NOTE | 2017-08-06 02:54 | NUR ---
MEDICATION GIVEN - SEE MAR - SUCTIONED AND CLEANED FACIAL AREA - PT OPENS EYES AD CHILANGO. CPOC
--- NOTE | 2017-08-06 03:20 | NUR ---
ASSESMSENT COMPLETE - PT OPENS EYES AD CHILANGO - DOES NOT TRACK - CPOC
--- NOTE | 2017-08-06 04:00 | NUR ---
X-RAY TECH AT BEDSIDE - ASSISTED X 2 WITH PT. 0410 LAB DRAWN AND SENT TO LAB - I&O COMPLETE - PT RESTING WITH EYES CLOSED - CPOC
[2017-08-06 04:29] LABS: BASOPHILS 0.1 % (0-2); EOSINOPHILS 0 % (0-7); HEMATOCRIT 33.7 % (42.0-54.0); HEMOGLOBIN 10.4 g/dL (13.5-17.5); IMMATURE GRANULOCYTES 5.4 % (0-5); LYMPHOCYTES 3.3 % (15-50); MCH 22.7 pg (26.0-34.0); MCHC 30.9 g/dL (31.0-37.0); MCV 73.6 fL (80.0-100.0); MEAN PLATELET VOLUME 10.6 fL (7.4-10.4); MONOCYTES 3.7 % (2-11); NEUTROPHILS 87.5 % (40-80); PLATELET COUNT 389 10x3/uL (130-400); RBC 4.58 10x6/uL (4.20-6.10); RDW 24.5 % (11.5-14.5); WBC 21.5 10x3/uL (4.8-10.8)
--- NOTE | 2017-08-06 04:45 | NUR ---
BROTHER AT BEDSIDE FOR VISITATION - INSTRUCTED BROTHER TO TALK TO PT - PT OPENS EYES BUT DOES NOT TRACK - CPOC
[2017-08-06 04:51] LABS: ALBUMIN 2.4 g/dL (3.4-5.0); ALKALINE PHOSPHATASE 97 U/L (46-116); ALT (SGPT) 88 U/L (10-68); CALC OSMOLALITY 278 mosm/kg (275-300); CALCIUM 9.5 mg/dL (8.5-10.1); CARBON DIOXIDE 26.8 mmol/L (21.0-32.0); CHLORIDE - SERUM 103 mmol/L (98-107); CREATININE - SERUM 0.8 mg/dL (0.6-1.3); GLUCOSE 127 mg/dL (74-106); MAGNESIUM - SERUM 1.9 mg/dL (1.8-2.4); PHOSPHOROUS 4.7 mg/dL (2.5-4.9); POTASSIUM - SERUM 5.1 mmol/L (3.5-5.1); PROTEIN - SERUM 6.7 g/dL (6.4-8.2); SODIUM 136 mmol/L (136-145); UREA NITROGEN 26 mg/dL (7-18); eGFR NON AFRICAN AMERICAN > 90 mL/min (90-120)
--- NOTE | 2017-08-06 05:47 | NUR ---
MEDICATIONS GIVEN - PT RESTING - RESPIRATIONS REG RATE AND RHYTHM - CPOC
--- NOTE | 2017-08-06 05:59 | NUR ---
MEDICATIONS GIVEN - PT RESTING WITH EYES CLOSED IN TILT BED - RESPIRATIONS REG RATE AND RHYTHM. CPOC
--- NOTE | 2017-08-06 07:59 | NUR ---
UP IN BED AT THIS TIME. NOTED PT TO HAVE SOME TACHYCARDIA; SEDATION ADJUSTED TO PT COMFORT PER ORDERED PARAMETERS. NO ACUTE DISTRESS NOTED. PT TURNED Q15MIN VIA BED. WILL CONTINUE PLAN OF CARE.
--- NOTE | 2017-08-06 09:59 | NUR ---
NO ACUTE DISTRESS NOTED. PT TURNED Q15MIN VIA BED. FAMILY AT BEDSIDE. PT NOT FOLLOWING COMMANDS. OPENS EYES SPONTANEOUSLY. WILL CONTINUE PLAN OF CARE.
--- NOTE | 2017-08-06 11:58 | NUR ---
NOTED PER DR LAWSON PT TO HAVE BRONCHOSCOPY TODAY. SPOKE WITH PTS SISTER KE OWUSU AND RECIEVED TELEPHONE CONSENT BY SISTER, CONSENT RECHECKED BY SECOND NURSE. NO ACUTE DISTRESS NOTED. WILL CONTINUE PLAN OF CARE.
--- NOTE | 2017-08-06 13:26 | NUR ---
NO ACUTE DISTRESS NOTED. RESIDAL TO OGT FEEDINGS NOTED AT 20ML. NO ACUTE DISTRESS NOTED. WILL CONTINUE PLAN OF CARE.
--- NOTE | 2017-08-06 14:02 | NUR ---
NOTED EPISODE OF HEART RATE OF 67 SINUS AND BLOOD PRESSURE 108/46 WITH SYSTOLIC BLOOD PRESSURE TRENDING FROM 90-108. DIPROVAN DECREASED FROM 35MCG TO 15 MCG. QUICKLY AFTER THIS WAS PERFORMED BLOOD PRESSURE HAD INCREASED WITH SYSTOLIC BLOOD PRESSURE TRENDING 125-130. AND HEART RATE TO 77. WILL CONTINUE PLAN OF CARE.
--- NOTE | 2017-08-06 14:45 | NUR ---
AT THIS TIME BLOOD PRESSURE NOTED 170/59 AND HEART RATE 102 SINUS TACH WITH PAC. DIPROVAN INCREASED AT THIS TIME FROM 15 TO 20MCG. BLOOD PRESSURE QUICKLY NOTED 141/45 WITH HEART RATE 91. WILL CONTINUE PLAN OF CARE.
--- NOTE | 2017-08-06 15:07 | NUR ---
NO CHANGE. NO ACUTE DISTRESS NOTED. TURNED Q15MIN VIA BED. WILL CONTINUE PLAN OF CARE.
--- NOTE | 2017-08-06 16:32 | NUR ---
FAMILY AT BEDSIDE AT THIS TIME. NO ACUTE DISTRESS NOTED. WILL CONTINUE PLAN FO CARE.
--- NOTE | 2017-08-06 18:03 | NUR ---
NO ACUTE DISTRESS NOTED. PT EYES OPEN, DOES NOT FOLLOW COMMANDS. NO CHANGE. WILL CONTINUE PLAN OF CARE.
--- NOTE | 2017-08-06 19:00 | NUR ---
REPORT RECIEVED, SHIFT ASSESSMENT COMPLETE, PLEASE SEE FLOW SHEETS FOR DETAILS. ON VENT AND SEDATED, OPENS EYES ON OWN, NO RESONSE TO QUESTIONS AND DOES NOT FOLLOW COMMANDS. PUPILS 2MM AND SLUGGISH, BILATERAL EYE REDNESS. S1S2 HEARD, NSR NOTED ON MONITOR RATE OF 83. PPP. CAP REFIL <3 SEC.. LUNDS VERY DIMINISHED BILATERALLY AND MORE SO ON RIGHT, ALSO RHONCHI HEARD IN MIDDLE AND LOWER RIGHT LOBES. RR VERY SHALLOW AND UNEVEN, EXCESSORY MUSCLES BEING USED THOUGH RIDING VENT AT 15 RR/MIN. PLEASE SEE FLOW SHEETS FOR SPECIFIC VENT SETTINGS. SPO2 97%. BS HYPO X4, OGT IN PLACE AND INFUSING SUPLENA @ 35ML/HR WITH A Q4H FLUSH OF H2O. NO REPORTED BM'S TODAY, NO BM NOW. NO SIGNS OF TENDERNESS UPON PALPATION OF ABD. RESIDUAL CHECK OF FEED YEILDED 160ML AND WAS RETURNED. CHILDRESS IN PLAVE AND DRAINING VIA GRAVITY AND BAG OFF FLOOR. URINE IS CLOUDY/RODGER COLORED/WITH SEDIMENT. URINE CULTURE DUE TUBING CLAMPED FOR COLLECTION OF SPECIMINE. SKIN SMOOTH, GENERALIZED EDEMA NOTED IN EXTREMETIES X4 AND +3 PITTING EDEMA IN FEET. PT ON [facility] ROQUE II BED AND TURNS Q15MIN AUTOMATICALLY, ARMS AND LEGS ELEVATED ON PILLOWS WITH HEELS BRIDGED. RIGHT IJ CVL DRESSING NOT ATTACHED TO PT SKIN, SOILED AND NEEDED CHANGING, THIS WAS PROVIDED IMMEDIATELY USING STERILE TECHNIQUE AND ALLOWING FOR 2MIN OF DRYING TIME POST CLEANSING. DRESSING TIMED/DATED/INITIALED. BED LOW AND LOCKED, HOB AT 30 DEGREES, VSS, WILL CPOC.
--- NOTE | 2017-08-06 21:00 | NUR ---
ORAL CARE PROVIDED. BED TURNS AUTOMATICALLY Q15MIN. FAMILY GIVEN UPDATE. NO NEEDS ATT. BED LOW AND LOCKED, VSS, WILL CPOC.
--- NOTE | 2017-08-06 22:58 | NUR ---
REASSESSMENT COMPLETE, PLEASE SEE FLOW SHEETS FOR DETAILS. ON VENT AND SEDATED, OPENS EYES ON OWN, NO RESONSE TO QUESTIONS AND DOES NOT FOLLOW COMMANDS. PUPILS 2MM AND SLUGGISH, BILATERAL EYE REDNESS. S1S2 HEARD, NSR NOTED ON MONITOR RATE OF 86. PPP. CAP REFIL <3 SEC.. BP ELEVATED SBP 198, GAVE PRN HYDRALZINE AND CLONOPIN PER ORDERS. A-LINE AND CVP LINE ZEROED ATT. LUNDS VERY DIMINISHED BILATERALLY AND MORE SO ON RIGHT, ALSO RHONCHI HEARD IN ALL LOBES ON R SIDE & UPPER L. RR VERY SHALLOW AND UNEVEN, EXCESSORY MUSCLES BEING USED THOUGH RIDING VENT AT 15 RR/MIN. PLEASE SEE FLOW SHEETS FOR SPECIFIC VENT SETTINGS. SPO2 96%. BS HYPO X4, OGT IN PLACE AND INFUSING SUPLENA @ 35ML/HR WITH A Q4H FLUSH OF H2O. NO REPORTED BM'S TODAY, NO BM NOW. NO SIGNS OF TENDERNESS UPON PALPATION OF ABD. RESIDUAL CHECK OF FEED YEILDED 125ML AND WAS RETURNED. CHILDRESS IN PLACE AND DRAINING VIA GRAVITY AND BAG OFF FLOOR. URINE IS CLOUDY/RODGER COLORED/WITH SEDIMENT. URINE CULTURE SPECIMINE SENT TO LAB. SKIN SMOOTH, GENERALIZED EDEMA NOTED IN EXTREMETIES X4 AND +3 PITTING EDEMA IN FEET. PT ON [facility] ROQUE II BED AND TURNS Q15MIN AUTOMATICALLY, ARMS AND LEGS ELEVATED ON PILLOWS WITH HEELS BRIDGED. ORAL CARE PROVIDED. TEMP 98.3 TEMPORALLY. BED LOW AND LOCKED. WILL CPOC.
[2017-08-07] VITALS (35 sets, daily range): BP systolic 91–196; BP diastolic 36–75
--- NOTE | 2017-08-07 01:00 | NUR ---
SEDATED OPENS EYES OCCASIONALLY. VSS. ART LINE WITH GOOD WAVE FORM. ORAL CARE PROVIDED AND BED ON AUTO TURN Q15MIN. BED LOW AND LOCKED. WILL CPOC.
--- NOTE | 2017-08-07 03:00 | NUR ---
REASSESSMENT COMPLETE, PLEASE SEE FLOW SHEETS FOR DETAILS. ON VENT AND SEDATED, OPENS EYES ON OWN, NO RESONSE TO QUESTIONS AND DOES NOT FOLLOW COMMANDS. PUPILS 2MM AND SLUGGISH, BILATERAL EYE REDNESS. S1S2 HEARD, NSR NOTED ON MONITOR RATE OF 71. PPP. CAP REFIL <3 SEC.. LUNDS VERY DIMINISHED BILATERALLY, RHONCHI HEARD IN RML AND TESHA. BREATHING OVER VENT AT 18 RR/MIN, SPO2 98%. PLEASE SEE FLOW SHEET FOR VENT SETTINGS. BS HYPO X4, OGT IN PLACE AND INFUSING SUPLENA @ 35ML/HR WITH A Q4H FLUSH OF H2O. NO REPORTED BM'S TODAY. ABD DISDENDED AND SOFT, NO APPARENT TENDERNESS UPON PALPATION. CHILDRESS IN PLACE AND DRAINING VIA GRAVITY AND BAG OFF FLOOR. URINE IS CLOUDY/RODGER COLORED/WITH SEDIMENT. SKIN SMOOTH, GENERALIZED EDEMA NOTED IN EXTREMETIES X4 AND +3 PITTING EDEMA IN FEET. PT ON [facility] ROQUE II BED AND TURNS Q15MIN AUTOMATICALLY, ARMS AND LEGS ELEVATED ON PILLOWS WITH HEELS BRIDGED. ORAL CARE PROVIDED. VSS ATT, BED LOW AND LOCKED. WILL CPOC.
--- NOTE | 2017-08-07 05:00 | NUR ---
ORAL CARE PROVIDED. AUTO TURN BED Q15MIN. VSS, BED LOW AND LOCKED, WILL CPOC.
[2017-08-07 05:22] LABS: BASOPHILS 0.1 % (0-2); EOSINOPHILS 0 % (0-7); HEMOGLOBIN 9.6 g/dL (13.5-17.5); IMMATURE GRANULOCYTES 4.4 % (0-5); LYMPHOCYTES 4.4 % (15-50); MCV 74.2 fL (80.0-100.0); MEAN PLATELET VOLUME 9.9 fL (7.4-10.4); NEUTROPHILS 84.1 % (40-80); PLATELET COUNT 335 10x3/uL (130-400); RBC 4.18 10x6/uL (4.20-6.10); RDW 24.8 % (11.5-14.5); WBC 19.5 10x3/uL (4.8-10.8)
[2017-08-07 05:44] LABS: ALBUMIN 2.3 g/dL (3.4-5.0); ANION GAP 13.8 mmol/L (8-16); BILIRUBIN - TOTAL 0.26 mg/dL (0.2-1.3); CALCIUM 8.8 mg/dL (8.5-10.1); CARBON DIOXIDE 23.5 mmol/L (21.0-32.0); POTASSIUM - SERUM 5.3 mmol/L (3.5-5.1); PROTEIN - SERUM 6.2 g/dL (6.4-8.2)
[2017-08-07 05:48] LABS: CREATININE - SERUM 1.5 mg/dL (0.6-1.3)
--- NOTE | 2017-08-07 06:16 | NUR ---
0230 CALLED UI UX ENGINEER ABOUT IV ANTIBIOTICS DUE, SHE SAID SHE WOULD BE HERE SOON TO PULL. 0400 CALLED HOUSE SUP. PHONE, WAS LEFT ON MED2, NOT ABLE TO LOCATE HOUSE SUP. NOW: STILL UNABLE TO LOCATE HOUSE SUP. WILL HAVE TO POSSIBLY WAIT FOR PHARMACY TO COME IN AND ADMINISTER ABX WHEN THEY HIT PIXIS.
--- NOTE | 2017-08-07 08:22 | NUR ---
UP IN BED AT THIS TIME. NO ACUTE DISTRESS NOTED. PT TURNED Q15MIN VIA BED. OGT PLACEMENT VERIFIED VIA AUSCULTATION. RESIDUAL NOTED OF 160ML. TUBE FEEDS HELD AND WILL RECHECK AT 1200. NO ACUTE DISTRESS NOTED. WILL CONTINUE PLAN OF CARE.
--- NOTE | 2017-08-07 10:42 | NUR ---
FAMILY AT BEDSIDE. UDPATE GIVEN. NO ACUTE DISTRESS NOTED. WILL CONTINUE PLAN OF CARE.
--- NOTE | 2017-08-07 11:26 | NUR ---
PER DR LAWSON; TUBE FEEDS RESTARTED. ALSO STATED TO NOT HOLD FEEDS UNLESS RESIDUAL IS OVER 200ML.
--- NOTE | 2017-08-07 12:50 | NUR ---
PT FOLLOWED COMMAND. STAFF REQUESTED FOR PT TO SQUEEZE HANDS, PT FOLLOWED COMMAND AND SQUEEZED LT HAND, WHEN ASKED PT TO SQUEEZE RT HAND THERE WAS LITTLE MOVEMENT BUT NO CONSISTENCY. PT WAS ABLE TO SQUEEZE LT HAND PER REQUEST X 2 TIMES. WILL CONTINUE PLAN OF CARE AND CONTINUE TO OBSERVE.
--- NOTE | 2017-08-07 13:21 | NUR ---
TOTAL BED CHANGE PROVIDED AT THIS TIME. INCONTINENT BOWEL MOVEMENT, BROWN LOOSE. CHILDRESS AND TORY CARE PERFORMED VIA TOTAL ASSIST X 3 PERSON. NO ACUTE DISTRESS NOTED. WILL CONTINUE PLAN OF CARE.
--- NOTE | 2017-08-07 15:55 | NUR ---
NO ACUTE DISTRESS NOTED. PT TURNED Q15MIN VIA BED. FENTANYL AND PROPIFOL TITRATED TO PHYSICIAN ORDER. WILL CONTINUE PLAN OF CARE.
--- NOTE | 2017-08-07 17:56 | NUR ---
BROTHER AT BEDSIDE, UPDATE GIVEN. NO ACUTE DISTRESS NOTED. NO CHANGE. WILL CONTINUE TO OBSERVE.
--- NOTE | 2017-08-07 19:30 | NUR ---
ASSESSMENT COMPELTE. PT SEDATED ON VENT. OPENS EYES; FOLLOWS COMMANDS. S1S2. NSR SHOWING ON MONITOR. MECHANICAL VENT. CRACKLES NOTED THROUGHOUT ALL LOBES. ART LINE TO RIGHT RADIAL. OGT; SUPLENA. PT LABILE WITH SEDATION; MONITORING BP CLOSELY. CHILDRESS CATH IN PLACE. PUPILS 2MM; SLUGGISH. CVP 8. RT JUGULAR CVL. RADIAL AND PEDAL PULSES PALPATED.
--- NOTE | 2017-08-07 21:30 | NUR ---
FAMILY AT BEDSIDE. BROTHER KANIKA. QUESTIONS ANSWERED. UPDATE GIVEN. NO CONCERNS VERBALIZED AT THIS TIME. FAMILY STATED PLEASED WITH CARE BEING PROVIDED BY ALL STAFF MEMBERS.
--- NOTE | 2017-08-07 23:10 | NUR ---
REASSESSMENT COMPLETE. NO CHANGES FROM PREVIOUS ASSESSMENT. SEE FLOWSHEET FOR DETAILS. WILL FOLLOW POC.
[2017-08-08] VITALS (23 sets, daily range): BP systolic 100–199; BP diastolic 41–80
--- NOTE | 2017-08-08 01:30 | NUR ---
PT SEDATED ON VENT; MONITORING BP CLOSELY.
--- NOTE | 2017-08-08 03:05 | NUR ---
REASSESSMENT COMPLETE. NO ACUTE CHANGES FROM PREVIOUS ASSESSMENT. BP FLUCTUATES CONSTANTLY; LABILE. CONSTANT CHANGES IN SEDATION. MONITORING CLOSELY.
[2017-08-08 04:22] LABS: BASOPHILS 0 % (0-2); EOSINOPHILS 0 % (0-7); HEMATOCRIT 32.2 % (42.0-54.0); HEMOGLOBIN 9.8 g/dL (13.5-17.5); LYMPHOCYTES 2.5 % (15-50); MCH 22.6 pg (26.0-34.0); MCHC 30.4 g/dL (31.0-37.0); MCV 74.2 fL (80.0-100.0); MEAN PLATELET VOLUME 10.6 fL (7.4-10.4); MONOCYTES 3.1 % (2-11); NEUTROPHILS 90.4 % (40-80); PLATELET COUNT 358 10x3/uL (130-400); RBC 4.34 10x6/uL (4.20-6.10); RDW 24.6 % (11.5-14.5)
[2017-08-08 04:47] LABS: ALBUMIN 2.5 g/dL (3.4-5.0); ANION GAP 13.5 mmol/L (8-16); BILIRUBIN - TOTAL 0.25 mg/dL (0.2-1.3); CARBON DIOXIDE 23.9 mmol/L (21.0-32.0); CREATININE - SERUM 1.3 mg/dL (0.6-1.3); POTASSIUM - SERUM 5.4 mmol/L (3.5-5.1); PROTEIN - SERUM 6.6 g/dL (6.4-8.2); VANCOMYCIN - TROUGH 17.7 ug/mL (10.0-20.0)
--- NOTE | 2017-08-08 05:30 | NUR ---
FAMILY AT BEDSIDE. UPDATE GIVEN. NO QUESTIONS AT THIS TIME.
--- NOTE | 2017-08-08 08:49 | NUR ---
AT 0830 BP DROPPED TO 97/42 (MAP 55). DECREASED PROPOFOL FROM 28MCG/KG/MIN TO 24MCG/KG/MIN. AT 0835 DECREASED IT TO 20MCG/KG/MIN. AT 0845 DECREASED IT TO 15MCG/KG/MIN. WILL CONTINUE TO MONITOR.
--- NOTE | 2017-08-08 08:52 | NUR ---
DECREASED PROPOFOL TO 10MCG/KG/MIN. BP STILL 96/41.
--- NOTE | 2017-08-08 08:59 | NUR ---
SPOKE WITH DR. HGUO ABOUT BP DROPPING DOWN 96/38 MAP 57, HR 68. CONTINUE TO MONITOR. AND INCREASE SEDATION BACK UP NEEDED. PROPOFOL CURRENTLY INFUSING AT 10MCG/KG/MIN. BP SLOWLY COMMING BACK UP.
--- NOTE | 2017-08-08 09:41 | NUR ---
PT OPENING EYES. BP ELEVATED INTO 190S. SLOWLY INCREASED SEDATION UP TO 25MCG/KG/MIN. WILL CONTINUE TO MONITOR.
--- NOTE | 2017-08-08 10:01 | NUR ---
SEDATION INCREASED. PROPOFOL INFUSING AT 30MCG/KG/MIN.
--- NOTE | 2017-08-08 10:53 | NUR ---
SPOKE WITH PACO SHELTON ONE OF THE PATIENT'S SISTERS. EXPLAINED THAT DR. HUGO WANTED TO DISCUSS WITH THEM THE PLACEMENT OF A TRACHEOSTOMY TUBE AND A PEG TUBE. SHE STATED THAT SHE APROVES THIS PROCEDURE AND WOULD TRY TO GET TO HOSPITAL SOON SHE COULD TO SIGN CONSENT FORMS. IF NOT ABLE SHE WOULD GIVE CONSENT OVER THE PHONE.
--- NOTE | 2017-08-08 11:11 | NUR ---
NUTRITION F//U CHART REVIEWED. SPOKE WITH NURSING. DIPRIVAN RATE DOWN TO 31.5 CC/HR. SUPLENA CONTINUES AT 35 CC/HR. NOTE PT FOR POSSIBLE TRACH AND PEG. IF DIPRIVAN RATE REMAINS REDUCED, WILL INCREASE TUBE FEEDS TO 40 CC/HR. RD FOLLOWING
--- NOTE | 2017-08-08 12:01 | NUR ---
PT RESTING COMFORTABLY. BP 115/41. HR 60. PROPOFOL INFUSING AT 30MCG/KG/MIN. FENTANYL INFUSING AT 350MCG/HR. WILL CONTINUE TO MONITOR.
--- NOTE | 2017-08-08 13:15 | NUR ---
PROPOFOL INFUSION INCREASED TO 35 MCG/KG/MIN. PT RESTING COMFORTABLY. BP 114/41. HR 64. WILL CONTINUE TO MONITOR.
--- NOTE | 2017-08-08 13:29 | NUR ---
INFORMED CONSENT SIGNED VIA TELEPHONE BY PACO SHELTON MR. HAAS'S SISTER. DR. OBRIEN WILL BE PERFORMING TRACHEOSTOMY PLACEMENT.
--- NOTE | 2017-08-08 13:50 | NUR ---
TRACHEOSTOMY PLACEMENT COMPLETED. 50MCG BOLUS OF PROPOFOL GIVEN DURING PROCEDURE. OGT TUBE REMOVED DURING TRACH PLACEMENT. TUBE FEEDING DISCONTINUED AT THIS TIME.
--- NOTE | 2017-08-08 15:27 | NUR ---
PT RESTING COMFORTABLY. PROPOFOL INFUSION DECREASED FROM 30MCG/KG/MIN TO 25MCG/KG/MIN. BP STABLE AT 127/44. NO OTHER NEEDS AT THIS TIME.
--- NOTE | 2017-08-08 16:34 | NUR ---
LARGE,BROWN, LIQUID BOWEL MOVEMENT NOTED. PT BATHED. CLEAN LINENS PROVIDED. PULLED PT UP IN BED. PT TOLERATED WELL. CHILDRESS CARE PROVIDED. WILL CONTINUE TO MONITOR.
--- NOTE | 2017-08-08 17:00 | NUR ---
PT RESTING COMFORTABLY. RECTAL TUBE INSERTED. LIQUID BROWN BM NOTED. NO OTHER NEEDS AT THIS TIME.
--- NOTE | 2017-08-08 19:00 | NUR ---
REPORT RECEIVED. SHIFT ASSESSMENT COMPLETED PER FLOW SHEET. PT SEDATED. FRESH TRACH PROTOCOL. PUPILS 3MM BRISK REACTION. PT OPENS EYES SPONTANEOUSLY BUT IS UNABLE TO FOLLOW COMMANDS AT THIS TIME. SLIGHT MOVEMENT NOTED TO EXTREMITIES. REDNESS TO BOTH EYES NOTED. S1S2 PRESENT. RADIAL AND PEDAL PULSES PALP. TELEMETRY MONITORING HR 105. CRACKLES NOTED TO RUL, RML. AND LLL. DIMINISHED BREATH SOUNDS ON RLL AND LLL. TRACH COLLAR IN PLACE, SECURED. BS HYPOACTIVE X4. RECTAL TUBE IN PLACE, SCANT AMOUNT OF DIARRHEA NOTED. CHILDRESS CATHETER TO GRAVITY SECURED, DRAINING RODGER URINE. RT JUGULAR CENTRAL LINE. VENT ON SIMV. RATE 15. FI02 40%. TV 600. PEEP 8. PRESSURE SUPPORT 15. SEE FLOW SHEET FOR COMPLETE ASSESSMENT. WILL CONTINUE TO MONITOR.
--- NOTE | 2017-08-08 19:15 | NUR ---
PT COUGHING OVER VENT, EYES OPEN, ATTEMPTING TO TALK, SBP IN THE 190'S BUT FLACTUATES RAPIDLY BETWEEN 140-190. APRESOLINE HAS BEEN PREVIOUSLY GIVEN. DIPRIVAN RATE INCREASED. WILL CONTINUE TO MONITOR.
--- NOTE | 2017-08-08 20:05 | NUR ---
PT STILL AWAKE BUT APPEARS MORE CALM. COUGHING SOME. ORAL SUCTIONING PROVIDED. CLEAR SPUTUM NOTED. DIPRIVAN INCREASED TO 35 MCG/KG/MIN. SBP STILL FLACTUATING BETWEEN 130-150'S OCCASIONALLY GETS TO 180'S BUT TRENDS BACK DOWN. WILL CONTINUE TO MONITOR.
--- NOTE | 2017-08-08 22:05 | NUR ---
MEDS ADMINISTERED PER EMAR, SEE FOR DETAILS. PT RESTING, CALM. SEDATED ON VENT. WILL CONTINUE TO MONITOR.
--- NOTE | 2017-08-08 23:00 | NUR ---
REASSESSMENT COMPLETED PER FLOW SHEET, SEE FOR DETAILS. NO ACUTE CHANGES NOTED. WILL CONTINUE TO MONITOR.
[2017-08-09] VITALS (24 sets, daily range): BP systolic 87–181; BP diastolic 31–85
--- NOTE | 2017-08-09 01:00 | NUR ---
PT LAYING IN BED. STILL AWAKE. TRACHE SUCTIONED SMALL AMOUNT OF BLOOD. NO ACUTE CHANGES AT THIS TIME. WILL CONTINUE TO MONITOR.
--- NOTE | 2017-08-09 03:00 | NUR ---
REASSESSMENT COMPLETED PER FLOW SHEET, NO ACUTE CHANGES NOTED. SEE FLOW SHEET FOR COMPLETE ASSESSMENT. WILL CONTINUE TO MONITOR. PT LAYING CALM IN BED.
--- NOTE | 2017-08-09 04:00 | NUR ---
PT RESTING EYES CLOSED. ARTERIAL SBP RAGING BETWEEN 110'S TO 120'S, STILL RAPIDLY FLACTUATING. TITRATING DIPRIVAN DOWN. WILL CONTINUE TO MONITOR.
[2017-08-09 04:09] LABS: BASOPHILS 0.1 % (0-2); EOSINOPHILS 0.1 % (0-7); HEMATOCRIT 31.8 % (42.0-54.0); HEMOGLOBIN 9.8 g/dL (13.5-17.5); IMMATURE GRANULOCYTES 2.4 % (0-5); LYMPHOCYTES 3.6 % (15-50); MCH 22.7 pg (26.0-34.0); MCHC 30.8 g/dL (31.0-37.0); MCV 73.8 fL (80.0-100.0); MONOCYTES 4.5 % (2-11); NEUTROPHILS 89.3 % (40-80); PLATELET COUNT 361 10x3/uL (130-400); RBC 4.31 10x6/uL (4.20-6.10); RDW 25.1 % (11.5-14.5); WBC 18.8 10x3/uL (4.8-10.8)
[2017-08-09 04:22] LABS: ALBUMIN 2.6 g/dL (3.4-5.0); ANION GAP 15.4 mmol/L (8-16); BILIRUBIN - TOTAL 0.3 mg/dL (0.2-1.3); CALCIUM 9.2 mg/dL (8.5-10.1); CARBON DIOXIDE 24.3 mmol/L (21.0-32.0); CREATININE - SERUM 1.1 mg/dL (0.6-1.3); POTASSIUM - SERUM 4.7 mmol/L (3.5-5.1); PROTEIN - SERUM 6.3 g/dL (6.4-8.2)
--- NOTE | 2017-08-09 05:41 | NUR ---
MEDS ADMINISTERED PER EMAR. PT LAYING IN BED RESTING. EYES CLOSED. NO DISTRESS NOTED AT THIS TIME. WILL CONTINUE TO MONITOR.
--- NOTE | 2017-08-09 07:10 | NUR ---
PT RESTING COMFORTABLY. VENT CONNECTED TO FRESH TRACHEOSTOMY. SIMV, TV 600, R 15, PS 15, FIO2 40%, PEEP 8. TRACH SIZE 8. A-LINE ON RIGHT RADIAL. BP 148/52 (72) VT 58, RR 15, AXILLARY TEMP 98.0, O2 SAT 98%. RIGHT IJ WITH PROPOFOL INFUSING AT 55MCG/KG/MIN, FENTANYL INFUSING AT 350MCG/HR, NS INFUSING AT 30ML/HR. ART LINE AND CVP LINE ZEROD. BOTH HAVE GOOD WAVE FORMS. LUNG SOUNDS CLEAR RUL,RML,TESHA. DIMINISHED ON LLL, RLL. NO COUGH NOTED AT THIS TIME. BS HYPOACTIVE ON RLQ,RUQ. ACTIVE ON LUQ,LLQ. CVP 7. SKIN WARM AND DRY. LEFT RADIAL PULSE 2+. PEDAL PULSES 2+ EQUAL BILATERALLY. CHILDRESS DEPENDENT ON LEFT SIDE OF BED. RECTAL TUBE IN PLACE. SMALL AMOUNT OF BM NOTED IN TUBE. BED LOW POSITION, CALL LIGHT IN REACH. FULL ASSESSMENT CHARTED IN ASSESMENT SECTION.
--- NOTE | 2017-08-09 09:02 | NUR ---
PEG TUBE PLACED BY DR. OBRIEN. CONSENT FORMS SIGNED VIA TELEPHONE BY PACO SHELTON MR. HAAS'S SISTER. PROPOFOL INCREASED TO 75MCG/KG/MIN AND 100MCG BOLUS GIVEN FOR PROCEDURE. AFTER PROCEDURE PROPOFOL TURNED DOWN TO 60MCG/KG/MIN. WILL CONTINUE TO MONITOR.
--- NOTE | 2017-08-09 11:00 | NUR ---
PT RESTING COMFORTABLY. REASSESSMENT COMPLETED. AXILLARY TEMP 97.5. HR 63, RR 15, CVP 7, O2 SAT 98%. BS SOUNDS ACTIVE X 4 QUADRANTS. BED LOW POSITION. SIDE RAILS UP X 2. WILL CONTINUE TO MONITOR.
--- NOTE | 2017-08-09 12:35 | NUR ---
BP ELEVATED 172/56. APRESOLINE 20MG IV GIVEN PER ORDERS. PROPOFOL HAS BEEN SLOWLY DECREASED TO 25MCG/KG/MIN. PT OPENING EYES TO SPEECH. WILL CONTINUE TO DECREASE SEDATION TOLERATED BY PATIENT. NO OTHER NEEDS AT THIS TIME.
--- NOTE | 2017-08-09 13:46 | NUR ---
MOUTH CARE PROVIDE. PT AWAKE. FOLLOWS SOME COMMANDS. PROPOFOL AT 20MCG/KG/MIN. BP STILL ELEVATED IN THE 170S. WILL CONTINUE TO MONITOR.
--- NOTE | 2017-08-09 14:14 | NUR ---
Patient Name: CALOS HAAS Encounter No: [id number] : 1955 Primary Insurance: [facility] Planned Disposition: [facility] DCP follow-up note: Order rec'd for LTAC placement. NATALIE spoke with sister, Jenifer Franks - updated on POC. She is agreeable to LTAC placement. Their first choice would be [facility] here in [place]. Explained we would also be sending referrals to both [facility] & [facility] - verbalized understanding. Referral given to Debbie with [facility]. Referral faxed to [facility]. Referral faxed to [facility]. Case management will follow and assist as needed. [facility] [phone] - phone [phone] - fax [facility] [phone] - phone [phone] - fax Sandee Al
--- NOTE | 2017-08-09 15:02 | NUR ---
PT HEART RATE INCREASED UP TO 200S AND STAYING AT THAT RATE. DR. HERRERA NOTIFED. HE ORDERED 25MG ONE TIME BOLUS OF CARDIZEM AND 20MG/HR CARDIZEM DRIP. CARDIZEM DRIP INITIATED AT 20MG/HR. 25MG BOLUS GIVEN FROM 100MG/100ML CONCENTRATION BAG. HEART RATE DECREASED BACK DOWN TO 105 TO 120S. WILL CONTINUE TO MONITOR.
--- NOTE | 2017-08-09 19:10 | NUR ---
Received patient sedated in bed on vent with fresh trach protocol until 08/10, assessment completed per flowsheet. Patient opens eyes spontaneously but does not follow commands. Eyes PERRLA @ 3mm with brisk response, sclera is reddened. S1/S2 noted Sinus Tach on telemetry with HR 105, rhythmic and regular. Vent Settings SIMV R-14 V-600 40% P-8 Ps-10 with O2 sat 99%, lung sounds clear bilateral upper and mid with diminished lower. Abdomen is obese and distended with bowel sounds active x4, non-tender. Silva secured in place. concentrated chase urine noted. Rectal Tube in place, scant liquid brown stool. Passive ROM all extremities with all pulses palpable, cap refill < 3 sec with skin warm/dry. R IJ CVL dressing CDI, patent with fluids infusing. Oral care/suctioning provided, patient repositioned for comfort. No further needs at this time, all VSS and will continue to monitor.
--- NOTE | 2017-08-09 21:00 | NUR ---
Patient sedated in bed on vent, oral care/suctioning provided and patient repositioned for comfort. No Visistors at this time, all VSS and will continue to monitor.
--- NOTE | 2017-08-09 23:00 | NUR ---
Reassessment completed per flowsheet, patient sedated in bed on vent. Opens eyes spontaneously but does not follow commands. S1/S2 noted NSR on telemetry with HR 89, rhythmic and regular. Vent settings unchanged from previous, Lung sounds clear bilateral upper and mid with diminished lower. Trach 8.0 secured, old blood noted on dressing. Peg tube site no swelling/drainage noted. All pulses palpable with cap refill < 3 sec, skin warm/dry to touch. Oral care/suctioning provided, old blood noted. Repositioned for comfort, no further needs at this time. All VSS and will continue to monitor.
[2017-08-10] VITALS (24 sets, daily range): BP systolic 84–157; BP diastolic 39–72
--- NOTE | 2017-08-10 01:00 | NUR ---
Patient sedated in bed on vent, vent settings unchanged from previous assessment. Oral care/suctioning provided, repositioned for comfort. Trach 8.0 secured with old blood noted on dressing, no swelling/bleeding noted. PEG site no swelling/bleeding noted. Bed bath given, patient tolerated well. No further needs at this time, all VSS and will continue to monitor.
--- NOTE | 2017-08-10 03:00 | NUR ---
Reassessment completed per flowsheet, patient sedated in bed with eyes closed. Patient opens eyes spontaneously, does not follow commands. S1/S2 noted NSR on telemetry with HR 80, rhythmic and regular. Vent settings unchanged from previous assessment, lung sounds clear bilateral upper and mid with diminished lower. Trach 8.0 secured with old blood noted on dressing, Fresh Trach protocol until 08/10. Peg site with no swelling drainage noted, dressing CDI. Oral care/suctioning provided, patient repositioned for comfort. All pulses palpable with cap refill < 3 sec, skin warm/dry. PROGRAM WRITER in use, no further needs at this time. All VSS and will continue to monitor.
--- NOTE | 2017-08-10 04:48 | NUR ---
Patient noted to have pauses on telemetry, HR decreased to 80's. Awaiting results from lab work, will continue to monitor.
--- NOTE | 2017-08-10 05:00 | NUR ---
Patient laying in bed sedated with eyes open, vent settings unchanged from previous assessment. Trach 8.0 secured, old blood noted on dressing. Peg site dressing CDI, no drainage/swelling noted. Patient ECG noted to be controlled Afib with pauses and HR 78, irregular. Oral care/suctioning done, patient repositioned for comfort. FOX FARMER in use, no further needs at this time. All VSS and will continue to monitor.
[2017-08-10 05:09] LABS: ANION GAP 12.3 mmol/L (8-16); BILIRUBIN - TOTAL 0.22 mg/dL (0.2-1.3); CALCIUM 8.6 mg/dL (8.5-10.1); CARBON DIOXIDE 23.3 mmol/L (21.0-32.0); POTASSIUM - SERUM 4.6 mmol/L (3.5-5.1); PROTEIN - SERUM 5.2 g/dL (6.4-8.2)
[2017-08-10 05:10] LABS: CREATININE - SERUM 1.7 mg/dL (0.6-1.3)
[2017-08-10 05:24] LABS: BASOPHILS 0 % (0-2); EOSINOPHILS 0.7 % (0-7); IMMATURE GRANULOCYTES 1.5 % (0-5); LYMPHOCYTES 11.2 % (15-50); MCH 22.6 pg (26.0-34.0); MCHC 30.5 g/dL (31.0-37.0); MCV 74.2 fL (80.0-100.0); MONOCYTES 11.6 % (2-11); RDW 25.7 % (11.5-14.5)
[2017-08-10 05:25] LABS: RBC 3.18 10x6/uL (4.20-6.10); WBC 12.8 10x3/uL (4.8-10.8)
[2017-08-10 05:26] LABS: HEMATOCRIT 23.6 % (42.0-54.0); HEMOGLOBIN 7.5 g/dL (13.5-17.5); PLATELET COUNT 278 10x3/uL (130-400)
--- NOTE | 2017-08-10 09:28 | NUR ---
NUTRITION F/U CHART REVIEWED. TUBE FEED CONSULT NOTED. SPOKE WITH NURSING. SUPLENA RESUMED AT 40 CC/HR WILL PROVIDE 1728 KCAL, 43 GM PROTEIN PER DAY. PT CONTINUES DIPRIVAN @ 21 CC/HR PROVIDING 554 GM PROTEIN PER DAY. TOTAL 2282 KCAL, 43 GM PROTEIN PER DAY. 708 CC FREE H2O WITH 100 CC H2O FLUSH Q 4 HOURS PROVIDE 13O8 CC FLUID. PT ALSO WITH NORMAL SALINE AT 30 CC/HR TO PROVIDE ADDITIONAL 720 CC FLUID PER DAY. WILL MONITOR PT PROGRESS AND INCREASE TUBE FEEDS IF DIPRIVAN RATE DECREASES. RD FOLLOWING
--- NOTE | 2017-08-10 09:30 | NUR ---
PTS SCR HAS BUMPED UP TODAY. WILL HOLD TONIGHTS VANCOMYCIN DOSE UNTIL A TROUGH IS REPORTED, AND REEVALUATE THE DOSE AT THAT TIME.
--- NOTE | 2017-08-10 09:45 | NUR ---
TUBE FEEDING RESTARTED PER ORDERS. SUPLENA AT 40CC/HR WITH 100CC FLUSH Q 4HRS. FEEDING TUBE CONNECTED TO PEG TUBE. PEG TUBE SITE WNL. NO REDNESS OR SWEELLING NOTED AT SITE. CVP AND A-LINE TUBING CHANGED AND ZEROD. NO OTHER NEEDS AT THIS TIME.
[2017-08-10 10:17] LABS: FUNGUS STAIN Final report (())
--- NOTE | 2017-08-10 11:00 | NUR ---
REASSESSMENT COMPLETED. AXILLARY TEMMP 98.2. PT RESTING COMFORTABLY. PROPOFOL INFUSING AT 20MCG/KG/MIN. NO OTHER NEEDS AT THIS TIME.
--- NOTE | 2017-08-10 11:15 | NUR ---
1 UNIT OF PRBC'S INFUSING. BP 150/44, HR 82, AXILLARY TEMP 98.2, O2 SAT 98%, ON 40% FIO2. WILL CONTINUE TO MONITOR.
--- NOTE | 2017-08-10 12:49 | NUR ---
Rec'd call from Chauncey Gotti ([phone]) with [facility] in [place] - [facility] requires patient to be on mechanical ventilation a minimum of 21 days before they will authorize LTAC services. Patient was intubated 07/25 - He will be on vent a total of 21 days on TuesdayAugust 15. He states he will initiate authorization the end of this week.
--- NOTE | 2017-08-10 14:20 | NUR ---
2ND UNTI OF PRBCs INFUSING. PT RESTING COMFORTABLY. NO OTHER NEEDS AT THIS TIME. WILL CONTINUE TO MONITOR.
--- NOTE | 2017-08-10 15:45 | NUR ---
COMPLETE BED BATH GIVEN. CHILDRESS AND PERINEAL CARE PROVIDE. COMPLETE LINEN CHANGE PROVIDED. PULLED UP IN BED. SBP IN THE 190S. PT WAS ON CPAP TRIALS. DID NOT TOLERATED CPAP TRIAL. WILL CONTINUE TO MONITOR.
--- NOTE | 2017-08-10 17:00 | NUR ---
PT RESTING COMFORTABLY. PROPOFOL INFUSING AT 15MCG/KG/MIN. HOB ELEVATED AT 30 DEGREES. NO OTHER NEEDS AT THIS TIME.
--- NOTE | 2017-08-10 19:30 | NUR ---
ASSESSMENT COMPLETE. S1S2; IRREGULAR. RR CRACKLES BILATERALLY IN UPPER LOBES; TRACH; MECHANICAL VENT. BUTTOCKS REDDENED. RECTAL TUBE AND CHILDRESS IN PLACE. SEDATED. PERRLA. OPENS EYES SPONATANEOUSLY. RADIAL AND PEDAL PULSES PALPATED.
--- NOTE | 2017-08-10 21:30 | NUR ---
KANIKA LOUIS, AT BEDSIDE. UPDATE GIVEN. QUESTIONS ANSWERED. NO CONCERNS VOICED AT THIS TIME.
--- NOTE | 2017-08-10 23:15 | NUR ---
REASSESSMENT COMPLETE. NO ACUTE CHANGES FROM PREVIOUS ASSESSMENT. WILL CONTINUE TO MONITOR.
[2017-08-11] VITALS (24 sets, daily range): BP systolic 97–178; BP diastolic 52–87
--- NOTE | 2017-08-11 03:15 | NUR ---
REASSESSMENT COMPLETE. NO ACUTE CHANGES FROM PREVIOUS ASSESSMENT. RECTAL TUBE SLIGHT LEAK. PT CLEANED. LINENS CHANGED. SEE FLOWSHEET FOR DETAILS.
[2017-08-11 05:00] LABS: BASOPHILS 0 % (0-2); EOSINOPHILS 0 % (0-7); HEMATOCRIT 28.1 % (42.0-54.0); HEMOGLOBIN 8.8 g/dL (13.5-17.5); IMMATURE GRANULOCYTES 1.2 % (0-5); LYMPHOCYTES 2.3 % (15-50); MCH 23.8 pg (26.0-34.0); MCHC 31.3 g/dL (31.0-37.0); MONOCYTES 3.7 % (2-11); NEUTROPHILS 92.8 % (40-80); PLATELET COUNT 251 10x3/uL (130-400); RBC 3.69 10x6/uL (4.20-6.10); WBC 13.7 10x3/uL (4.8-10.8)
[2017-08-11 05:07] LABS: MCV 76.2 fL (80.0-100.0)
[2017-08-11 05:16] LABS: MAGNESIUM - SERUM 2.5 mg/dL (1.8-2.4)
[2017-08-11 05:41] LABS: ANION GAP 16.1 mmol/L (8-16); CARBON DIOXIDE 20.4 mmol/L (21.0-32.0); VANCOMYCIN - RANDOM 23.1 ug/mL (10.0-20.0)
[2017-08-11 05:52] LABS: CREATININE - SERUM 2.2 mg/dL (0.6-1.3); POTASSIUM - SERUM 5.5 mmol/L (3.5-5.1)
--- NOTE | 2017-08-11 07:00 | NUR ---
REPORT RECEIVED FROM OFF GOING NURSE. SEE ASSESSMENT FLOW SHEET. PT HAS A TRACH AND IS ON THE VENTILATOR SIMV RATE 14 TITAL VOL 600, PS 10 FIO2 40% PEEP OF 5. VSS. WAS TOLD TO TURN DOWN SEDATION FOR TODAYS CPAP TRIALS. DIPROVAN TURNED OFF PER ORDERS AND PROTOCOL. CALL LIGHT IN REACH. WILL CONT POC
--- NOTE | 2017-08-11 07:41 | NUR ---
VANCOMYCIN TROUGH WAS HIGH I THOUGHT IT MIGHT BE. LEFT THE DOSES ON HOLD AND GOT A RANDOM THIS AM WHICH WAS 23.1, THIS IS ROUGHLY 24HR AFTER THE LAST DOSE. GIVEN THE DECLINE IN CLEARANCE, WILL PULSE DOSE OFF OF AM LABS. NO DOSES TODAY 08/11
--- NOTE | 2017-08-11 09:00 | NUR ---
PT REMAINS ON VENITLATOR. PT TURNED Q 2 HOURS. BED BATH GIVEN. VSS. CALL LIGHT IN REACH. WILL CONT POC.
--- NOTE | 2017-08-11 10:06 | NUR ---
NUTRITION F/U PT TOLERATING SUPLENA @ 40 CC/HR. DIPRIVAN OFF. CURRENTLY ON FENTAYL. IF REMAINS OFF DIPRIVAN, WILL INCREASE TUBE FEED RATE. RD FOLLOWING
--- NOTE | 2017-08-11 10:30 | NUR ---
RT SWITCH VENTILATOR SETTINGS FROM SIMV TO CPAP. PT TOLERATING WELL.
--- NOTE | 2017-08-11 11:00 | NUR ---
PT ALERT AND ABLE TO ANSWER QUESTIONS BY SHACKING HEAD UP AND DOWN. DENIES PAIN. DENIES BEING SOB. WHENEVER ASKED IF HE IS BREATHING OK, HE STATED YES. CALL LIGHT IN REACH. WILL CONT POC.
[2017-08-11 12:16] LABS: FUNGUS CULTURE RESULT 1 Candida dubliniensis (())
--- NOTE | 2017-08-11 13:00 | NUR ---
TOLERATING CPAP TRIALS WELL. BREATHING NORMAL AND UNALBORED. VSS. CALL LIGHT IN REACH. WILL CONT POC
--- NOTE | 2017-08-11 13:45 | NUR ---
ST AT BED SIDE. REMOVED PT FROM BIPAP AND PUT ON PREVIOUS VENTILATOR SETTINGS. SIMV AT 14 TITAL VOL 600 PS 19 FIO2 40% AND PEEP 5. DIPROVAN TURNED BACK TO 15MCG/KG/MIN. CALL LIGHT IN REACH. WILL CONT POC.
--- NOTE | 2017-08-11 15:00 | NUR ---
PT REMAINS ON VENTILATOR. NO CHANGES FROM PREVIOUS ASSESSMENT. NO FAMILY AT BED SIDE. CALL LIGHT IN REACH. WILL CONT POC.
--- NOTE | 2017-08-11 17:00 | NUR ---
PT RESTING IN BED WITH EYES CLOSED. SUCTIONED TRACH. THICK CLEAR/BLOODY SPEUTUM NOTED. REPOSITIONED FOR COMFORT. CALL LIGHT IN REACH. WILL CONT POC.
--- NOTE | 2017-08-11 19:00 | NUR ---
REPORT RECEIVED AND ASSESSMENT COMPLETED SEE FLWOSHEET FOR FULL DETAILS. VSS. WILL MONITOR THROUGHOUT SHIFT
--- NOTE | 2017-08-11 21:00 | NUR ---
2100 MEDS GIVEN. TUBE FEEDING STOPPED AFTER CHECK. 350 RESIDUAL OUT. WILL REASSESS.
--- NOTE | 2017-08-11 23:00 | NUR ---
PT RESTLESS AND AGGITATED ON VENT. PRN MEDICATION GIVEN. PT RESPONDED WELL. WILL CONTINUE TO MONITOR
[2017-08-12] VITALS (21 sets, daily range): BP systolic 98–171; BP diastolic 40–85
--- NOTE | 2017-08-12 01:00 | NUR ---
NO CHANGES IN STATUS AT THIS TIME. WILL CONTINUE TO MONITOR
--- NOTE | 2017-08-12 03:00 | NUR ---
CARDIZEM DRIP REMAINS OFF DUE TO PT HR BEING MADDY. NO OTHER CHANGES IN STATUS AT THIS TIME. WILL CONTINUE TO MONITOR
--- NOTE | 2017-08-12 05:00 | NUR ---
NO CHANGES IN STATUS AT THIS TIME. LABS DRAWN. WILL CONTINUE TO MONITOR
[2017-08-12 05:20] LABS: BASOPHILS 0 % (0-2); EOSINOPHILS 0 % (0-7); HEMATOCRIT 28.3 % (42.0-54.0); IMMATURE GRANULOCYTES 2.1 % (0-5); LYMPHOCYTES 3.4 % (15-50); MCHC 31.8 g/dL (31.0-37.0); MCV 75.5 fL (80.0-100.0); MONOCYTES 4.1 % (2-11); NEUTROPHILS 90.4 % (40-80); PLATELET COUNT 244 10x3/uL (130-400); RBC 3.75 10x6/uL (4.20-6.10)
[2017-08-12 05:29] LABS: WBC 9.6 10x3/uL (4.8-10.8)
[2017-08-12 05:50] LABS: ANION GAP 17.1 mmol/L (8-16); CALCIUM 9.2 mg/dL (8.5-10.1); CARBON DIOXIDE 19.3 mmol/L (21.0-32.0); CREATININE - SERUM 1.9 mg/dL (0.6-1.3); MAGNESIUM - SERUM 2.7 mg/dL (1.8-2.4); POTASSIUM - SERUM 5.4 mmol/L (3.5-5.1); VANCOMYCIN - RANDOM 15.2 ug/mL (10.0-20.0)
--- NOTE | 2017-08-12 07:19 | NUR ---
UP IN BED. NO ACUTE DISTRESS NOTED. PT TURNED Q30MIN VIA BED. DOES NOT FOLLOW COMMANDS AT THIS TIME. WILL CONTINUE PLAN OF CARE.
--- NOTE | 2017-08-12 09:35 | NUR ---
TUBE FEEDING RESUDUAL NOTED AT 340ML. TUBE FEEDS HELD AT THIS TIME.
--- NOTE | 2017-08-12 10:25 | NUR ---
NUTRITION F/U CHART REVIEWED. PT REMAINS SEDATED ON VENT. DIPRIVAN BACK ON AT 31.5 CC/HR. SUPLENA TUBE FEEDS OFF SECONDARY TO HI RESIDUALS. RD FOLLOWING
--- NOTE | 2017-08-12 10:35 | OP ---
PATIENT NAME: CALOS NEIL MEDICAL RECORD: [id number] :[birth year] LOCATION:[facility].2311 ADMISSION DATE:07/22/17 SURGEON: NANO HUGO MD DATE OF OPERATION: 07/27/2017 PROCEDURE: Fiberoptic bronchoscopy. INDICATION: Mr. Neil is a 61-year-old gentleman who has acute hypoxic respiratory failure with ARDS. Fiberoptic bronchoscopy was carried out to inspect the airway for any mucus plugging as well as any food material and to get the cultures. PROCEDURE IN DETAIL: The patient was orally intubated and fiberoptic bronchoscope was easily passed through the ET tube. There was thick yellowish secretion bilaterally. The franco was sharp. There were severe bronchitic changes bilaterally and bled easily by touching the bronchoscope. There was no endobronchial lesion seen by inspecting left main bronchus, left upper lobe lingula, left lower lobe, right main bronchus, right upper lobe, and right lower lobe segments. Overall, the patient tolerated the procedure very well. Specimen washing was obtained and sent for routine culture and sensitivity, AFB and fungus. TRANSINT:[id number] Voice Confirmation ID: [id number] DOCUMENT ID: [id number] NANO HUGO MD at 1035 CC: EVANGELINA COY DO [id number] DICTATION DATE: 07/27/17 1109 FRENCH TRANSLATOR: 07/27/17 1224 ADM IN [facility] [address] [place] [address]
--- NOTE | 2017-08-12 11:03 | NUR ---
Patient Name: CALOS HAAS Encounter No: [id number] : 1955 Primary Insurance: [facility] Anticipated DC Date: Planned Disposition: [facility] Acute Care Facility DCP follow-up note: Rec'd call from Grecia with [facility]. She states she has received authorization from insurance [employer] for LTAC. She requests todays labs, last pulmonary PN, & MAR be faxed for review. If accepted, patient will transfer this afternoon via ambulance to a LTAC bed. Case management will follow. Sandee Al
--- NOTE | 2017-08-12 11:20 | NUR ---
UP CHANGE. NO ACUTE DISTRESS NOTED. DIPROVAN AND FENTANYL TITRATED TO ORDERED GUIDELINES FOR SEDATION. WILL CONTINUE PLAN OF CARE.
--- NOTE | 2017-08-12 11:21 | NUR ---
CVL DRESSING CHANGE PERFORED AT THIS TIME. OLD DRESSING NO LONGER ADHERED TO SKIN. NEW DRESSING PLACED PER PROTOCOL, STERILE PROCEDURE. NO ACUTE DISTRESS NOTED. WILL CONTINUE PLAN OF CARE.
--- NOTE | 2017-08-12 11:40 | NUR ---
JUAN AND FENTANYL PREFORM PLATE MAKER DC AT THIS TIME PER DR MCKEON ORDERS.
--- NOTE | 2017-08-12 11:49 | NUR ---
SPOKE WITH DR HERRERA REGARDING PTS CARDIZEM GTT NOTING THAT HEART RATE LAST SHIFT DROPPED TO 40 THEREFORE NURSE AT THAT TIME TURNED OFF CARDIZEM DRIP. DRIP TURNED BACK ON THIS SHIFT TO 5ML/HOUR. HEART RATE TRENDING 62-86 ATRIAL FLUTTER, DR HERRERA NOTIFIED FOR FURTHER ORDERS, NOTED ORDER TO CUT CURRENT SET RATE IN HALF FROM 20ML/HOUR TO 10ML/HOUR AND THAT SINCE PT HAS GONE IN THE 40S BEFORE HE WAS NOT CONCERNED. ALSO NOTIFIED THAT PT HAS BEEN ACCEPTED TO LTAC IN [facility]. NO FURTHER ORDERS NOTED. NOTED PT TO GO TO ROOM 1062 AT [facility] WILL BE ACCEPTED BY DR NADIA CROSS. REPORT TO BE CALLED TO [phone]; THIS INFORMATION GIVEN TO NURSE BY JUNI.
--- NOTE | 2017-08-12 12:48 | NUR ---
Patient Name: CALOS HAAS Encounter No: [id number] : 1955 Primary Insurance: [employer] Anticipated DC Date: 08/12/17 Planned Disposition: Nursing Home Acute Care Facility External Planned Provider: [facility] DCP follow-up note: Rec'd call from Grecia with [facility]. Patient has been accepted by Dr. Mauricio Cerda. He will transfer to room 1062. Nursing to call report to [phone]. Family was notified of transfer by MARI Peters. Family in agreement with discharge plan. No changes to plan. Case management will follow and assist as needed. Sandee Al
--- NOTE | 2017-08-12 14:04 | NUR ---
CORRECTION: PT TO GO TO ROOM 1058 TO [facility]. CALLED REPORT TO THUY RANGEL RN. SHE STATED THEY DO NOT YET HAVE HIM A BARIATRIC BED READY BUT WILL CALL WHEN THEY RECIEVE A BED FOR PT. WILL CONTINUE PLAN OF CARE.
--- NOTE | 2017-08-12 15:05 | NUR ---
[facility], NOTED IT WILL BE 2H BEFORE THEY WILL BE HERE.
[2017-08-12] MEDS ORDERED: FLORAJEN3 CAPS460 MG PO (15:06)
[2017-08-12] MEDS ORDERED: HYDRALAZINE20 MG/ML IV (15:06)
[2017-08-12] MEDS ORDERED: XOPENEX 0.0.63 MG/3 UPD (15:06)
[2017-08-12] MEDS ORDERED: LOVENOX30 MG/0.3 SC (15:06)
[2017-08-12] MEDS ORDERED: PERIDEX480 ML PO (15:06)
[2017-08-12] MEDS ORDERED: SOLU-MEDRO40 MG/1 M1 IV (15:06)
[2017-08-12] MEDS ORDERED: NORVASC10 MG NG (15:06)
[2017-08-12] MEDS ORDERED: ATIVAN2 MG/ML IV (15:06)
[2017-08-12] MEDS ORDERED: GUAIFENESI100 MG/5 M NG (15:06)
[2017-08-12] MEDS ORDERED: PULMICORT0.5 MG/21 UPD (15:06)
[2017-08-12] MEDS ORDERED: CATAPRES0.2 MG NG (15:06)
[2017-08-12] MEDS ORDERED: REGLAN INJ10 MG/2 ML IV (15:06)
[2017-08-12] MEDS ORDERED: PROTONIX I40 MG/VIAL IV (15:06)
[2017-08-12] MEDS ORDERED: LISINOPRIL10 MG NG (15:06)
[2017-08-12] MEDS ORDERED: NEURONTIN 300300 MG PO (15:06)
[2017-08-12] MEDS ORDERED: CARAFATE1 G/10 ML PO (15:06)
[2017-08-12] MEDS ORDERED: MIRALAX17 GM NG (15:06)
--- NOTE | 2017-08-12 15:31 | NUR ---
ART LINE TO RT RADIAL DC AT THIS TIME PER ORDERS FOR PT TO TRANSFER. 2 SUITURES DC AND PRESSURE HELF FOR 5 MIN. NO ACUTE DISTRESS NOTED. WILL CONTINUE PLAN OF CARE.
--- NOTE | 2017-08-12 16:33 | NUR ---
WILL ADMIN SCHEDULED NEUROTIN WHEN RECIEVE FROM PHARMACY
--- NOTE | 2017-08-12 17:09 | NUR ---
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 NOTED THEY STATED IT WOULD BE PROBABLY ANOTHER 45 MIN. WILL CONTINUE PLAN OF CARE.
--- NOTE | 2017-08-12 17:15 | NUR ---
TURNED Q2H VIA TOTAL ASSIST X 2 PERSON USING PILLOWS. WILL CONTINUE PLAN OF CARE.
--- NOTE | 2017-08-12 19:03 | NUR ---
LEFT AT THIS TIME VIA AMBULANCE, STABLE CONDITION. LEFT VIA STRETCHER HOOKED UP TO PORTABLE VENT. AND CARDIZEM DRIP AT ORDERED RATE. LEFT WITH ALL DISCHARGE PAPERWORK AND TRANSFER PAPERWORK. FAMILY NOTIFIED. RECIEVING FACILITY NOTIFIED OF PTS DEPARTURE TO THEM. TRANSFERRED FROM HOSPITAL BED TO STRETCHER VIA TOTAL ASSIST X 4 PERSON. CHILDRESS AND RECTAL TUBE IN PLACE. NO FURTHER ACTIONS.
[2017-08-15 11:12] LABS: FUNGUS CULTURE RESULT 1 Candida albicans (()); FUNGUS MYCOLOGY CULTURE Final report (())
[2017-08-24 08:21] LABS: FUNGUS MYCOLOGY CULTURE Final report (())
[2017-09-01 06:13] LABS: FUNGUS MYCOLOGY CULTURE Final report (())
[2017-09-16 11:17] LABS: ACID FAST CULTURE Negative (()); ACID FAST SMEAR Negative (())
[2017-09-23 15:21] LABS: ACID FAST CULTURE Negative (()); ACID FAST SMEAR Negative (())
== END 2017-08-12 19:11 | DRG 4 ==
LOC: D.ER 13:20 → D.ICU 17:22
PROVIDERS: Family Medicine; Internal Medicine; Internal Medicine Gastroenterology; Internal Medicine Pulmonary Disease; Nurse Practitioner Family; ADMIT Family Medicine
PROC: 5A09457 Assistance with Respiratory Ventilation, 24-96 Consecutive Hours, Continuous Positive Airway Pressure (ICD-10-PCS; 2017-07-23)
PROC: 05HM33Z Insertion of Infusion Device into Right Internal Jugular Vein, Percutaneous Approach (ICD-10-PCS; 2017-07-23)
PROC: 0DJ08ZZ Inspection of Upper Intestinal Tract, Via Natural or Artificial Opening Endoscopic (ICD-10-PCS; principal; 2017-07-23 09:00)
PROC: 0BH17EZ Insertion of Endotracheal Airway into Trachea, Via Natural or Artificial Opening (ICD-10-PCS; 2017-07-25)
PROC: 5A1955Z Respiratory Ventilation, Greater than 96 Consecutive Hours (ICD-10-PCS; 2017-07-25)
PROC: 0T9B70Z Drainage of Bladder with Drainage Device, Via Natural or Artificial Opening (ICD-10-PCS; 2017-07-25)
PROC: 0BD78ZX Extraction of Left Main Bronchus, Via Natural or Artificial Opening Endoscopic, Diagnostic (ICD-10-PCS; 2017-07-27)
PROC: 0BD38ZX Extraction of Right Main Bronchus, Via Natural or Artificial Opening Endoscopic, Diagnostic (ICD-10-PCS; 2017-07-27)
PROC: 0BDB8ZX Extraction of Left Lower Lobe Bronchus, Via Natural or Artificial Opening Endoscopic, Diagnostic (ICD-10-PCS; 2017-08-04)
PROC: 0BD48ZX Extraction of Right Upper Lobe Bronchus, Via Natural or Artificial Opening Endoscopic, Diagnostic (ICD-10-PCS; 2017-08-04)
PROC: 0BD88ZX Extraction of Left Upper Lobe Bronchus, Via Natural or Artificial Opening Endoscopic, Diagnostic (ICD-10-PCS; 2017-08-04)
PROC: 0BDD8ZX Extraction of Right Middle Lung Lobe, Via Natural or Artificial Opening Endoscopic, Diagnostic (ICD-10-PCS; 2017-08-04)
PROC: 0BD38ZX Extraction of Right Main Bronchus, Via Natural or Artificial Opening Endoscopic, Diagnostic (ICD-10-PCS; 2017-08-04)
PROC: 0BD78ZX Extraction of Left Main Bronchus, Via Natural or Artificial Opening Endoscopic, Diagnostic (ICD-10-PCS; 2017-08-04)
PROC: 0BD68ZX Extraction of Right Lower Lobe Bronchus, Via Natural or Artificial Opening Endoscopic, Diagnostic (ICD-10-PCS; 2017-08-04)
PROC: 0BD68ZX Extraction of Right Lower Lobe Bronchus, Via Natural or Artificial Opening Endoscopic, Diagnostic (ICD-10-PCS; 2017-08-06)
PROC: 0BD48ZX Extraction of Right Upper Lobe Bronchus, Via Natural or Artificial Opening Endoscopic, Diagnostic (ICD-10-PCS; 2017-08-06)
PROC: 0BD38ZX Extraction of Right Main Bronchus, Via Natural or Artificial Opening Endoscopic, Diagnostic (ICD-10-PCS; 2017-08-06)
PROC: 0B113F4 Bypass Trachea to Cutaneous with Tracheostomy Device, Percutaneous Approach (ICD-10-PCS; 2017-08-08)
PROC: 0DH63UZ Insertion of Feeding Device into Stomach, Percutaneous Approach (ICD-10-PCS; 2017-08-09)
DX: K92.0 Hematemesis (principal); J96.01 Acute respiratory failure with hypoxia; J69.0 Pneumonitis due to inhalation of food and vomit; N17.0 Acute kidney failure with tubular necrosis; D62 Acute posthemorrhagic anemia; J44.1 Chronic obstructive pulmonary disease with (acute) exacerbation; J95.84 Transfusion-related acute lung injury (TRALI); K22.10 Ulcer of esophagus without bleeding; I48.2 Chronic atrial fibrillation; Z79.01 Long term (current) use of anticoagulants; I10 Essential (primary) hypertension; F32.9 Major depressive disorder, single episode, unspecified; F41.9 Anxiety disorder, unspecified; E66.9 Obesity, unspecified; K76.0 Fatty (change of) liver, not elsewhere classified; G47.33 Obstructive sleep apnea (adult) (pediatric); E87.5 Hyperkalemia; K29.80 Duodenitis without bleeding; K29.00 Acute gastritis without bleeding; K44.9 Diaphragmatic hernia without obstruction or gangrene; I85.00 Esophageal varices without bleeding; R00.1 Bradycardia, unspecified; Z72.0 Tobacco use; Z72.89 Other problems related to lifestyle

== ENCOUNTER 2017-10-14 13:04 | Inpatient (IN) | payer MEDICARE, MEDICAID ==
[~2017-10-14] VITALS: Ht 170.2 cm; Wt 155.1 kg
--- NOTE | ~2017-10-14 | RHP ---
PATIENT: CALOS HAAS MEDICAL RECORD: [id number] ACCOUNT: [id number] LOCATION:[facility]1113 : [birth year] ADMISSION DATE: 10/14/17 REHABILITATION HISTORY AND PHYSICAL EXAMINATION POST ADMISSION PHYSICIAN EXAMINATION DATE OF ADMISSION: 10/14/2017. 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 HISTORY OF PRESENT ILLNESS: The patient is a 62-year-old gentleman admitted from [facility] for continued vent weaning and medical management. He was transferred from [place] and appears to have been trach on 07/27/2017. He was admitted with GI bleed and recently started on Xarelto for atrial fibrillation. GI was consulted and performed the EGD revealing an esophageal varices and esophagitis. He was started on Protonix drip and no more bleeding. He was given 3 units of packed red blood cells, 2 units of FFP, and 1 unit of platelets. He became hypoxic, needing BiPAP. He was intubated on 07/22/2017. He received several doses of Lasix 60 mg for pulmonary edema, but his creatinine increased from 1.2-3.7 over 4 days. His blood pressure remained stable. He did not require pressor support, but blood pressure increased and his medications were adjusted. He has known history of chronic kidney disease, has a history of atrial fib, hypertension, COPD. He is a current smoker of 30 years, gout, morbid obesity, arthritis. Apparently, the patient when he becomes stable, he will actually need permanent pacemaker placement. He was admitted to [facility] on 08/12/2017. He remained on ventilator throught 09/29/2017, he was capped on 10/07/17, decannulated 10/10/2017. He is now on O2. He had methicillin-sensitive Staph in his blood and sputum. He is on IV cefazolin since 09/29, continue on prednisone taper over the next 3 weeks, acute kidney injury, upper GI bleed. His H&H are 9.7 and 29. His potassium level has been high and low. Current potassium is 3.5. He is max assist with PT, ambulate up to 4 feet and tolerate sitting and stairs and bedside for over 2 hours. He is alert and oriented times 3. He has got extreme weakness with more proximal than distal, completely independent prior to his hospitalization. He lives in an upstairs apartment with significant other. He has an aunt that lives close to the [place]. He receives Medicaid services for being disabled secondary to obesity, chronic back pain, stress according to the patient. He is 6 feet 6 inches and weighs 339 pounds. Acute inpatient rehab is definitely needed. COMORBIDITIES: In this patient include sepsis, morbid obesity, primary hypertension, chronic AFib, dysphagia, tracheostomy, acute respiratory distress syndrome, pulmonary edema, pneumonia, hematemesis, difficulty ventilatory weaning, chronic kidney disease, electrolyte abnormalities, chronic kidney injury, upper GI bleed, uncontrolled hypertension, dependence on respiratory ventilation, fibromyalgia, depression, anxiety, and panic disorder. PAST MEDICAL HISTORY: Significant for acute respiratory failure with hypoxia and hypercapnia, acute respiratory distress syndrome, pulmonary edema, pneumonia, hematemesis, protein-calorie malnutrition, difficulty vent weaning, morbid obesity with BMI of greater than 40, hypertension, chronic kidney disease, esophageal varices, hyperkalemia, upper GI bleed, uncontrolled hypertension, fibromyalgia, depression, anxiety, and panic disorder. HISTORY AND PHYSICAL [id number] CALOS HAAS PAST SURGICAL HISTORY: Please see previous charts. ALLERGIES: TETANUS, POTASSIUM, MORPHINE, DIOVAN, and CELEBREX. CURRENT MEDICATIONS: Include Xopenex updrafts q.i.d., Protonix 20 mg daily, Flomax 0.4 mg daily, Carafate 1 g q.a.c. and at bedtime. He is on prednisone taper. He is on Levaquin 500 mg daily. He is on Lasix 20 mg daily, aspirin 325 mg daily, Norvasc 10 mg daily, allopurinol 200 mg daily. He is on lactobacillus 1 tab daily, tramadol 50 mg q.i.d. p.r.n. pain, Seroquel 100 mg at bedtime, artificial tears. He is on metformin 500 mg t.i.d. with meals, hydralazine 100 mg b.i.d., Neurontin 300 mg t.i.d., Colace 200 mg b.i.d., Cardizem 90 mg q.i.d., clonidine 0.1 mg as needed for elevated blood pressures, Pulmicort 0.5 mg b.i.d., and MiraLax 17 grams in 8 ounces of water daily. HABITS: No current alcohol or tobacco use. FAMILY HISTORY: Noncontributory. SOCIAL HISTORY: As above. He wants to return back home to [place], live close to his aunt and with his significant other. REVIEW OF SYSTEMS: GENERAL: He does complain of weakness and fatigue. HEENT: Denies cold, cough, congestion. CARDIOVASCULAR: Denies any chest pain. LUNGS: He does complain of occasional shortness of breath. PHYSICAL EXAMINATION: VITAL SIGNS: Stable, afebrile. GENERAL: A morbidly obese gentleman in no acute distress, alert upon exam. HEENT: Normocephalic and atraumatic. Mucosa moist. NECK: Supple. No lymphadenopathy. LUNGS: Clear in upper valerio. HEART: Regular rate and rhythm. ABDOMEN: Benign. EXTREMITIES: No clubbing, cyanosis, or edema. NEUROLOGIC: Seems intact. LABORATORY DATA: His white count is 9.9, H&H of 9.8 and 31.0, and platelet count is 70,000. His sodium is 142, potassium 4.0, BUN and creatinine of 12 and 0.6, and blood sugar is noted to be 96. ASSESSMENT: This is a 62-year-old gentleman admitted to the rehab with a working diagnosis of critical illness myopathy. The patient has potential to make improvement. We instituted the following multidisciplinary therapies including to, but not limited to physical, occupational, respiratory, speech, nutritional services, prosthetics, and orthotics. Given his complex medical condition, risk of further medical complications, the patient cannot be in a lower level of care such as a snf facility. PLAN: 1. Admit to [facility] rehab for intensive inpatient therapy to include the following disciplines: A. Physical therapy to improve gait, all transfer skills and bed mobility to a modified independent level. HISTORY AND PHYSICAL [id number] CALOS HAAS B. Occupational therapy to improve activities of daily living to a modified independent level. C. Case management to assist with discharge planning and placement options. D. Nutrition to assist with nutritional needs. E. Rehabilitation nursing to assist in monitoring the patient's underlying medical conditions and to assist with any type of bowel or bladder management. 2. The patient's current medication and medical care will be continued. 3. The patient will be placed on standard fall precautions. 4. The patient's estimated length of stay is approximately 10-14 days. 5. Discuss this patient during care team staff meeting this week. TRANSINT:[id number] Voice Confirmation ID: [id number] DOCUMENT ID: [id number] BENI notes whether there has been none or any medical/functional change since admission: - No change since precreen. BENI attests patient continues to be appropriate for IRF: - Continues to be appropriate. LEESA LIRA MD at 1740 CC: [id number] DICTATION DATE: 10/15/17 1147 SERVICE LIAISON REPRESENTATIVE: 10/15/17 1245 ADM IN [facility] [address] [id number]
[~2017-10-14 13:04] MED LIST changes: +ATIVAN2 MG/ML IV; +CARAFATE1 G/10 ML PO; +CATAPRES0.2 MG NG; +FLORAJEN3 CAPS460 MG PO; +GUAIFENESI100 MG/5 M NG; +HYDRALAZINE20 MG/ML IV; +LISINOPRIL10 MG NG; +LOVENOX30 MG/0.3 SC; +MIRALAX17 GM NG; +NORVASC10 MG NG; +PERIDEX480 ML PO; +PROTONIX I40 MG/VIAL IV; +PULMICORT0.5 MG/21 UPD; +REGLAN INJ10 MG/2 ML IV; +SOLU-MEDRO40 MG/1 M1 IV; +XOPENEX 0.0.63 MG/3 UPD
[2017-10-14] MEDS ORDERED: ACIDOPHILUS LAC1 CAP PO (15:02)
[2017-10-14] MEDS ORDERED: PROVENTIL/2.5 MG/3 M INH (15:04)
[2017-10-14] MEDS ORDERED: ZYLOPRIM100 MG PO (15:05)
[2017-10-14] MEDS ORDERED: PULMICORT0.5 MG/21 INH (15:07)
[2017-10-14] MEDS ORDERED: LITE COAT ASPI325 MG PO (15:07)
[2017-10-14] MEDS ORDERED: CATAPRES0.1 MG PO (15:12)
[2017-10-14] MEDS ORDERED: CARDIZEM 90 MG90 MG PO (15:23)
[2017-10-14] MEDS ORDERED: STOOL SOFTENER240 MG PO (15:25)
[2017-10-14] MEDS ORDERED: FUROSEMIDE20 MG PO (15:26)
[2017-10-14] MEDS ORDERED: NEURONTIN 300300 MG PO (15:26)
[2017-10-14] MEDS ORDERED: HYDRALAZINE HC100 MG PO (15:27)
[2017-10-14] MEDS ORDERED: NORMODYNE / TR300 MG PO (15:27)
[2017-10-14] MEDS ORDERED: LEVAQUIN500 MG PO (15:31)
[2017-10-14] MEDS ORDERED: GLUCOPHAGE500 MG PO (15:35)
[2017-10-14] MEDS ORDERED: METOPROLOL TAR100 M1 PO (15:37)
[2017-10-14] MEDS ORDERED: OMEPRAZOLE20 M1 PO (15:37)
[2017-10-14] MEDS ORDERED: LIQUITEARS15 ML EACH EYE (15:38)
[2017-10-14] MEDS ORDERED: PREDNISONE20 MG PO (15:40)
[2017-10-14] MEDS ORDERED: PREDNISONE10 MG (15:41)
[2017-10-14] MEDS ORDERED: SEROQUEL100 MG PO (15:42)
[2017-10-14] MEDS ORDERED: FLOMAX0.4 MG PO (15:45)
[2017-10-14] MEDS ORDERED: CARAFATE1 G/10 ML PO (15:45)
[2017-10-14] MEDS ORDERED: ULTRAM50 MG PO (15:46)
[2017-10-14 15:55] VITALS: BP 189/85; BMI 53.7
[2017-10-14 19:48] VITALS: BP 139/77
[2017-10-15 06:33] LABS: CALC OSMOLALITY 282 mosm/kg (275-300); CALCIUM 8.6 mg/dL (8.5-10.1); CARBON DIOXIDE 31.3 mmol/L (21.0-32.0); CHLORIDE - SERUM 103 mmol/L (98-107); CREATININE - SERUM 0.6 mg/dL (0.6-1.3); GLUCOSE 96 mg/dL (74-106); SODIUM 142 mmol/L (136-145); UREA NITROGEN 12 mg/dL (7-18); eGFR NON AFRICAN AMERICAN > 90 mL/min (90-120)
[2017-10-15 07:12] LABS: BASOPHILS 0 % (0-2); EOSINOPHILS 1.1 % (0-7); HEMOGLOBIN 9.8 g/dL (13.5-17.5); IMMATURE GRANULOCYTES 0.6 % (0-5); LYMPHOCYTES 11.3 % (15-50); MCH 25.8 pg (26.0-34.0); MCHC 31.6 g/dL (31.0-37.0); MCV 81.6 fL (80.0-100.0); RDW 22.9 % (11.5-14.5); WBC 9.9 10x3/uL (4.8-10.8)
[2017-10-15 07:14] LABS: PLATELET COUNT 70 10x3/uL (130-400)
[2017-10-15 07:46] LABS: PLATELET ESTIMATE DECREASED
[2017-10-15 08:13] VITALS: BP 162/88
[2017-10-15 14:55] VITALS: BMI 53.6
[2017-10-15 19:43] VITALS: BP 140/74
[2017-10-16 08:19] VITALS: BP 143/77
[2017-10-16 19:40] VITALS: BP 173/82
[2017-10-17 07:27] LABS: BASOPHILS 0 % (0-2); EOSINOPHILS 0.4 % (0-7); HEMATOCRIT 31.5 % (42.0-54.0); HEMOGLOBIN 9.9 g/dL (13.5-17.5); IMMATURE GRANULOCYTES 0.5 % (0-5); MCH 25.8 pg (26.0-34.0); MCHC 31.4 g/dL (31.0-37.0); MONOCYTES 5.4 % (2-11); NEUTROPHILS 85.7 % (40-80); RBC 3.84 10x6/uL (4.20-6.10); RDW 23.4 % (11.5-14.5); WBC 13.1 10x3/uL (4.8-10.8)
[2017-10-17 07:35] LABS: PLATELET COUNT 88 10x3/uL (130-400)
[2017-10-17 07:38] LABS: CALC OSMOLALITY 281 mosm/kg (275-300); CALCIUM 8.6 mg/dL (8.5-10.1); CHLORIDE - SERUM 104 mmol/L (98-107); CREATININE - SERUM 0.7 mg/dL (0.6-1.3); GLUCOSE 86 mg/dL (74-106); POTASSIUM - SERUM 3.4 mmol/L (3.5-5.1); SODIUM 143 mmol/L (136-145); UREA NITROGEN 7 mg/dL (7-18); eGFR NON AFRICAN AMERICAN > 90 mL/min (90-120)
[2017-10-17 08:00] VITALS: BP 140/71
[2017-10-17 20:00] VITALS: BP 136/61
[2017-10-18 08:00] VITALS: BP 145/77
[2017-10-18 21:40] VITALS: BP 152/90
[2017-10-19 08:14] VITALS: BP 145/55
[2017-10-19 12:47] LABS: BASOPHILS 0 % (0-2); EOSINOPHILS 1.8 % (0-7); HEMATOCRIT 31.5 % (42.0-54.0); HEMOGLOBIN 9.9 g/dL (13.5-17.5); IMMATURE GRANULOCYTES 0.8 % (0-5); MCH 25.8 pg (26.0-34.0); MCHC 31.4 g/dL (31.0-37.0); MEAN PLATELET VOLUME 9.8 fL (7.4-10.4); MONOCYTES 6.3 % (2-11); NEUTROPHILS 83.1 % (40-80); RBC 3.84 10x6/uL (4.20-6.10); WBC 7.8 10x3/uL (4.8-10.8)
[2017-10-19 12:51] LABS: PLATELET COUNT 144 10x3/uL (130-400)
[2017-10-19 13:24] LABS: CALC OSMOLALITY 278 mosm/kg (275-300); CALCIUM 8.7 mg/dL (8.5-10.1); CARBON DIOXIDE 29.5 mmol/L (21.0-32.0); CHLORIDE - SERUM 102 mmol/L (98-107); CREATININE - SERUM 0.9 mg/dL (0.6-1.3); GLUCOSE 109 mg/dL (74-106); MAGNESIUM - SERUM 1.4 mg/dL (1.8-2.4); POTASSIUM - SERUM 3.9 mmol/L (3.5-5.1); PRO BNP 423 pg/mL (0-125); SODIUM 140 mmol/L (136-145); UREA NITROGEN 11 mg/dL (7-18); eGFR NON AFRICAN AMERICAN > 90 mL/min (90-120)
[2017-10-19 22:50] VITALS: BP 146/74
[2017-10-20 08:00] VITALS: BP 137/71
[2017-10-20 16:14] VITALS: Ht 170.2 cm; Wt 155.1 kg
[2017-10-21 05:59] LABS: BASOPHILS 0 % (0-2); EOSINOPHILS 2.6 % (0-7); HEMATOCRIT 28.9 % (42.0-54.0); HEMOGLOBIN 8.9 g/dL (13.5-17.5); IMMATURE GRANULOCYTES 1.6 % (0-5); LYMPHOCYTES 22.1 % (15-50); MCH 25.4 pg (26.0-34.0); MCHC 30.8 g/dL (31.0-37.0); MCV 82.3 fL (80.0-100.0); MONOCYTES 10.6 % (2-11); NEUTROPHILS 63.1 % (40-80); RBC 3.51 10x6/uL (4.20-6.10)
[2017-10-21 06:07] LABS: PLATELET COUNT 196 10x3/uL (130-400)
[2017-10-21 06:17] LABS: CALC OSMOLALITY 289 mosm/kg (275-300); CALCIUM 8.4 mg/dL (8.5-10.1); CARBON DIOXIDE 33.3 mmol/L (21.0-32.0); CHLORIDE - SERUM 108 mmol/L (98-107); CREATININE - SERUM 0.8 mg/dL (0.6-1.3); GLUCOSE 80 mg/dL (74-106); POTASSIUM - SERUM 3.5 mmol/L (3.5-5.1); SODIUM 147 mmol/L (136-145); UREA NITROGEN 10 mg/dL (7-18); eGFR NON AFRICAN AMERICAN > 90 mL/min (90-120)
[2017-10-21 08:00] VITALS: BP 135/88
[2017-10-21 19:22] VITALS: BP 126/70
[2017-10-22 06:03] LABS: BASOPHILS 0.1 % (0-2); EOSINOPHILS 1.3 % (0-7); HEMATOCRIT 30.7 % (42.0-54.0); HEMOGLOBIN 9.3 g/dL (13.5-17.5); IMMATURE GRANULOCYTES 3.1 % (0-5); LYMPHOCYTES 20.9 % (15-50); MCH 25.2 pg (26.0-34.0); MCHC 30.3 g/dL (31.0-37.0); MCV 83.2 fL (80.0-100.0); MEAN PLATELET VOLUME 9.7 fL (7.4-10.4); MONOCYTES 11.5 % (2-11); NEUTROPHILS 63.1 % (40-80); PLATELET COUNT 234 10x3/uL (130-400); RBC 3.69 10x6/uL (4.20-6.10); RDW 23.1 % (11.5-14.5); WBC 6.8 10x3/uL (4.8-10.8)
[2017-10-22 06:22] LABS: CALC OSMOLALITY 288 mosm/kg (275-300); CALCIUM 8.8 mg/dL (8.5-10.1); CARBON DIOXIDE 35.9 mmol/L (21.0-32.0); CHLORIDE - SERUM 104 mmol/L (98-107); CREATININE - SERUM 0.9 mg/dL (0.6-1.3); GLUCOSE 105 mg/dL (74-106); POTASSIUM - SERUM 3.7 mmol/L (3.5-5.1); SODIUM 145 mmol/L (136-145); UREA NITROGEN 12 mg/dL (7-18); eGFR NON AFRICAN AMERICAN > 90 mL/min (90-120)
[2017-10-22 08:00] VITALS: BP 140/59
[2017-10-22 19:30] VITALS: BP 147/67
[2017-10-23 09:00] VITALS: BP 113/80
[2017-10-23 22:59] VITALS: BP 158/61
[2017-10-24 06:33] LABS: BASOPHILS 0.1 % (0-2); EOSINOPHILS 2.1 % (0-7); HEMATOCRIT 27.7 % (42.0-54.0); HEMOGLOBIN 8.1 g/dL (13.5-17.5); LYMPHOCYTES 16.3 % (15-50); MCH 24.7 pg (26.0-34.0); MCHC 29.2 g/dL (31.0-37.0); MCV 84.5 fL (80.0-100.0); MEAN PLATELET VOLUME 9.6 fL (7.4-10.4); MONOCYTES 9.9 % (2-11); NEUTROPHILS 69.6 % (40-80); RBC 3.28 10x6/uL (4.20-6.10); RDW 23.3 % (11.5-14.5)
[2017-10-24 06:45] LABS: WBC 8.6 10x3/uL (4.8-10.8)
[2017-10-24 06:46] LABS: PLATELET COUNT 314 10x3/uL (130-400)
[2017-10-24 06:50] LABS: CALC OSMOLALITY 284 mosm/kg (275-300); CALCIUM 8.5 mg/dL (8.5-10.1); CARBON DIOXIDE 34.9 mmol/L (21.0-32.0); CHLORIDE - SERUM 103 mmol/L (98-107); CREATININE - SERUM 0.9 mg/dL (0.6-1.3); GLUCOSE 85 mg/dL (74-106); POTASSIUM - SERUM 3.6 mmol/L (3.5-5.1); SODIUM 143 mmol/L (136-145); UREA NITROGEN 14 mg/dL (7-18); eGFR NON AFRICAN AMERICAN > 90 mL/min (90-120)
[2017-10-24 07:42] VITALS: BP 145/54
[2017-10-24 20:48] VITALS: BP 147/76
[2017-10-25 12:52] VITALS: BP 176/92
[2017-10-26 01:58] VITALS: BP 124/55
[2017-10-26 06:30] LABS: BASOPHILS 0.1 % (0-2); EOSINOPHILS 1.2 % (0-7); HEMATOCRIT 27.4 % (42.0-54.0); HEMOGLOBIN 8.1 g/dL (13.5-17.5); IMMATURE GRANULOCYTES 5.5 % (0-5); LYMPHOCYTES 20.4 % (15-50); MCH 24.9 pg (26.0-34.0); MCHC 29.6 g/dL (31.0-37.0); MCV 84.3 fL (80.0-100.0); MEAN PLATELET VOLUME 9.7 fL (7.4-10.4); MONOCYTES 7.5 % (2-11); NEUTROPHILS 65.3 % (40-80); RBC 3.25 10x6/uL (4.20-6.10); RDW 23.6 % (11.5-14.5)
[2017-10-26 06:49] LABS: PLATELET COUNT 468 10x3/uL (130-400)
[2017-10-26 07:19] LABS: CALC OSMOLALITY 286 mosm/kg (275-300); CALCIUM 8.8 mg/dL (8.5-10.1); CARBON DIOXIDE 34.3 mmol/L (21.0-32.0); CHLORIDE - SERUM 103 mmol/L (98-107); CREATININE - SERUM 0.9 mg/dL (0.6-1.3); GLUCOSE 103 mg/dL (74-106); POTASSIUM - SERUM 3.5 mmol/L (3.5-5.1); SODIUM 144 mmol/L (136-145); UREA NITROGEN 13 mg/dL (7-18); eGFR NON AFRICAN AMERICAN > 90 mL/min (90-120)
[2017-10-26 07:42] VITALS: BP 167/70
[2017-10-26 20:00] VITALS: BP 142/64
[2017-10-27 08:20] VITALS: BP 114/45
[2017-10-27 19:45] VITALS: BP 145/51
[2017-10-28] VITALS (16 sets, daily range): BP systolic 129–219; BP diastolic 51–108
[2017-10-28 06:00] LABS: BASOPHILS 0.2 % (0-2); EOSINOPHILS 0.9 % (0-7); HEMATOCRIT 26.9 % (42.0-54.0); HEMOGLOBIN 7.8 g/dL (13.5-17.5); IMMATURE GRANULOCYTES 7.1 % (0-5); LYMPHOCYTES 18.8 % (15-50); MCH 24.4 pg (26.0-34.0); MCV 84.1 fL (80.0-100.0); MEAN PLATELET VOLUME 9.4 fL (7.4-10.4); MONOCYTES 9.8 % (2-11); NEUTROPHILS 63.2 % (40-80); RDW 23.7 % (11.5-14.5); WBC 10.6 10x3/uL (4.8-10.8)
[2017-10-28 06:14] LABS: PLATELET COUNT 585 10x3/uL (130-400)
[2017-10-28 06:35] LABS: CALCIUM 8.7 mg/dL (8.5-10.1); CARBON DIOXIDE 33.6 mmol/L (21.0-32.0); CREATININE - SERUM 1.1 mg/dL (0.6-1.3); POTASSIUM - SERUM 3.6 mmol/L (3.5-5.1)
[2017-10-29 00:25] VITALS: BP 158/77
[2017-10-29 01:25] VITALS: BP 147/73
[2017-10-29 08:20] LABS: BASOPHILS 0.4 % (0-2); EOSINOPHILS 0.7 % (0-7); HEMATOCRIT 29.5 % (42.0-54.0); HEMOGLOBIN 8.9 g/dL (13.5-17.5); LYMPHOCYTES 18.8 % (15-50); MCH 25.1 pg (26.0-34.0); MCHC 30.2 g/dL (31.0-37.0); MCV 83.3 fL (80.0-100.0); MEAN PLATELET VOLUME 8.9 fL (7.4-10.4); MONOCYTES 9.9 % (2-11); NEUTROPHILS 63.2 % (40-80); PLATELET COUNT 531 10x3/uL (130-400); RBC 3.54 10x6/uL (4.20-6.10); RDW 22.4 % (11.5-14.5); WBC 10.9 10x3/uL (4.8-10.8)
[2017-10-29 08:53] VITALS: BP 194/69
[2017-10-29 20:00] VITALS: BP 153/63
[2017-10-30 08:10] VITALS: BP 174/72
[2017-10-30 22:36] VITALS: BP 150/44
[2017-10-31 06:51] LABS: CALC OSMOLALITY 283 mosm/kg (275-300); CALCIUM 8.9 mg/dL (8.5-10.1); CARBON DIOXIDE 36.3 mmol/L (21.0-32.0); CHLORIDE - SERUM 101 mmol/L (98-107); GLUCOSE 103 mg/dL (74-106); POTASSIUM - SERUM 3.9 mmol/L (3.5-5.1); SODIUM 142 mmol/L (136-145); UREA NITROGEN 16 mg/dL (7-18); eGFR NON AFRICAN AMERICAN 81 mL/min (90-120)
[2017-10-31 07:02] LABS: BASOPHILS 0.2 % (0-2); EOSINOPHILS 0.3 % (0-7); HEMATOCRIT 31.1 % (42.0-54.0); HEMOGLOBIN 9.4 g/dL (13.5-17.5); IMMATURE GRANULOCYTES 4.4 % (0-5); LYMPHOCYTES 9.6 % (15-50); MCH 25.5 pg (26.0-34.0); MCHC 30.2 g/dL (31.0-37.0); MCV 84.3 fL (80.0-100.0); MEAN PLATELET VOLUME 9.5 fL (7.4-10.4); MONOCYTES 9.8 % (2-11); NEUTROPHILS 75.7 % (40-80); PLATELET COUNT 630 10x3/uL (130-400); RBC 3.69 10x6/uL (4.20-6.10); RDW 22.8 % (11.5-14.5)
[2017-10-31 07:04] LABS: WBC 16.7 10x3/uL (4.8-10.8)
[2017-10-31 07:45] VITALS: BP 194/59
[2017-10-31] MEDS ORDERED: MULTAQ400 MG PO (08:46)
[2017-10-31 11:48] LABS: APPEARANCE SLT CLOUDY (CLEAR); BILIRUBIN NEGATIVE (NEGATIVE); COLOR YELLOW (YELLOW); GLUCOSE NEGATIVE (NEGATIVE); KETONE NEGATIVE (NEGATIVE); NITRITE POSITIVE (NEGATIVE); PROTEIN TRACE mg/dL (NEGATIVE); SPECIFIC GRAVITY 1.015 (1.005-1.020); UROBILINOGEN NORMAL (NORMAL)
[2017-10-31 11:50] LABS: BACTERIA MANY /hpf (NONE SEEN); MUCUS <1+ /lpf (NONE SEEN)
[2017-10-31 22:42] VITALS: BP 146/48
[2017-11-01 06:36] LABS: BASOPHILS 0.3 % (0-2); EOSINOPHILS 0 % (0-7); HEMATOCRIT 30.3 % (42.0-54.0); IMMATURE GRANULOCYTES 7.7 % (0-5); LYMPHOCYTES 8.6 % (15-50); MCH 25.8 pg (26.0-34.0); MCHC 29.7 g/dL (31.0-37.0); MEAN PLATELET VOLUME 8.7 fL (7.4-10.4); MONOCYTES 9.4 % (2-11); RBC 3.49 10x6/uL (4.20-6.10); RDW 22.7 % (11.5-14.5); WBC 15.5 10x3/uL (4.8-10.8)
[2017-11-01 06:39] LABS: MCV 86.8 fL (80.0-100.0); PLATELET COUNT 458 10x3/uL (130-400)
[2017-11-01 06:48] LABS: ANION GAP 9.1 mmol/L (8-16); CALCIUM 8.8 mg/dL (8.5-10.1); CARBON DIOXIDE 35.3 mmol/L (21.0-32.0); POTASSIUM - SERUM 4.4 mmol/L (3.5-5.1)
[2017-11-01 06:51] LABS: CREATININE - SERUM 1.7 mg/dL (0.6-1.3)
[2017-11-01] MEDS ORDERED: PULMICORT0.5 MG/21 INH (08:31)
[2017-11-01] MEDS ORDERED: PROTONIX20 MG PO (08:34)
[2017-11-01] MEDS ORDERED: STERAPRED DS 1010 MG PO (08:36)
[2017-11-01] MEDS ORDERED: XOPENEX 0.0.63 MG/3 UPD (09:00)
[2017-11-01] MEDS ORDERED: PATANOL 0.1 % OP5 ML EACH EYE (09:01)
[2017-11-01] MEDS ORDERED: BENZONATATE200 MG PO (09:03)
[2017-11-01] MEDS ORDERED: HYDROCODONE-APA1 TAB PO (09:05)
[2017-11-01] MEDS ORDERED: GAS-X80 MG PO (09:08)
== END 2017-11-01 09:00 | disposition short-term general hospital (02) | DRG 91 ==
LOC: D.REHAB 13:04
PROVIDERS: Emergency Medicine
PROC: 0BH17EZ Insertion of Endotracheal Airway into Trachea, Via Natural or Artificial Opening (ICD-10-PCS; principal; 2017-11-01)
PROC: 5A1935Z Respiratory Ventilation, Less than 24 Consecutive Hours (ICD-10-PCS; 2017-11-01)
DX: G72.81 Critical illness myopathy (principal); A41.9 Sepsis, unspecified organism; J18.9 Pneumonia, unspecified organism; J80 Acute respiratory distress syndrome; J81.1 Chronic pulmonary edema; K92.0 Hematemesis; K92.2 Gastrointestinal hemorrhage, unspecified; Z68.43 Body mass index [BMI] 50.0-59.9, adult; Z93.0 Tracheostomy status; R13.14 Dysphagia, pharyngoesophageal phase; I12.9 Hypertensive chronic kidney disease with stage 1 through stage 4 chronic kidney disease, or unspecified chronic kidney disease; N18.9 Chronic kidney disease, unspecified; E66.01 Morbid (severe) obesity due to excess calories; I48.2 Chronic atrial fibrillation; F41.8 Other specified anxiety disorders; M79.7 Fibromyalgia; F17.200 Nicotine dependence, unspecified, uncomplicated; J44.9 Chronic obstructive pulmonary disease, unspecified; M79.89 Other specified soft tissue disorders

== ENCOUNTER 2017-11-01 07:30 | Inpatient (IN) | payer MEDICARE ==
[2017-11-01] VITALS (20 sets, daily range): BP systolic 113–188; BP diastolic 62–71; BMI 56.5; BMI 56.4
[~2017-11-01] VITALS: Ht 170.2 cm; Wt 179.1 kg
--- NOTE | ~2017-11-01 | CN ---
PATIENT NAME:CALOS NEIL MEDICAL RECORD: [id number] : [birth year] LOCATION:[facility].2310 ADMIT DATE: 11/01/17 ACCOUNT: [id number] CONSULTING PHYSICIAN: VICKI DODD MD REFERRING PHYSICIAN: EVANGELINA COY DO DATE OF CONSULTATION: 11/15/2017 HISTORY OF PRESENT ILLNESS: Mr. Neil is a 62-year-old male. He is intubated in the ICU. He has been having some blood from his pharynx that has been suctioned in the past couple of days, has required transfusion. PHYSICAL EXAMINATION: GENERAL: He is intubated and sedated. EYES: Sclerae and conjunctivae are normal. NOSE: Really has no active bleeding, suctioned out both sides of the nose. Septum, turbinates, nasal vault all looks normal. No masses, polyps, or drainage. ORAL CAVITY AND OROPHARYNX: He has an ET tube and an OG tube in place, a lot of old clot, real big clots in his entire oral cavity and pharynx, took a while to suction all those out with Yankauer suction. The roof of the mouth, all his teeth look good, the floor of mouth is normal. The tongue looks good. No evidence of any bite or laceration to the tongue. The palate is normal. The posterior pharyngeal wall looks good. It looks like he has some abrasion on his right tonsil with clot there but when I peeled that off there was no bleeding. I got a lot of clot out of the hypopharynx as well. There was an abrasion on the right tonsil as a possible source of bleeding, there was some clot attached to it, but at no point during my exam, even with a Yankauer suction 15 minutes and they are getting all the clot out, was there any bright red blood at all, just a lot of clot. Certainly no evidence of epistaxis because there is really not much in the nose, it seemed to be coming from the hypopharynx or possibly that tonsil with no active current bleeding. IMPRESSION: Intubated and sedated with some blood in the pharynx. I see no evidence of active bleeding. What I saw on the tonsil would not benefit from packing as there is no active bleeding even with agitation with Yankauer. There is a possibility this could have been some bleeding from the esophagus, but certainly could have been that right tonsil abrasion as well, possibly from intubation, but I do not see anything to do now as there is no active bleeding and probably would not benefit from packing anywhere, apparently was on some Lovenox, which has been stopped, is not on any anticoagulants, so I do not expect to start up much again if the pharynx is the source. TRANSINT:[id number] Voice Confirmation ID: [id number] DOCUMENT ID: [id number] VICKI DODD MD at 1145 CC: [id number] DICTATION DATE: 11/15/17 1402 SYSTEM SOFTWARE DEVELOPER: 11/15/17 1609 DIS IN 11/22/17 [id number] [place] [address]
--- NOTE | ~2017-11-01 | EC ---
PATIENT:CALOS HAAS DATE OF SERVICE: 11/01/17 SEX: M MEDICAL RECORD: [id number] DATE OF : [birth year] LOCATION:[place] [address] AGE OF PATIENT: 62 ADMISSION DATE: 11/01/17 REFERRING PHYSICIAN: INTERPRETING PHYSICIAN: DHRUV JUAN MD ECHOCARDIOGRAM REPORT ECHO CHARGES 4 ECHO COMPLETE CLINICAL DIAGNOSIS: EDEMA ECHOCARDIOGRAPHIC MEASUREMENTS (adult normal given) AC root (d.<3.7cm) 3.8 cm LV Septum d (<1.2 cm> 2.1 cm Valve Excursion 1.4 cm LV Septum (systole) 2.4 cm Left Atria (s.<4.0cm> 4.0 cm LVPW d(<1.2cm) 2.3 cm RV (d.<2.3cm) 4.0 cm LVPW (sytole) 2.5 cm LV diastole(<5.6CM) 3.6 cm MV E-F(>70mm/sec) cm LV systole 1.8 cm LVOT Diameter 1.7 cm MV exc.(>10mm) 2.3 cm Est.ejection fraction (50-75%) % Pericardial Effusion N DOPPLER: LVIT cm/sec A 70.0 cm/sec E 112 cm/sec LA cm/sec RVSP 68 mmHg LVOT 118 cm/sec AOP1/2T m/s Asc. Ao 171 cm/sec RVOT 93 cm/sec RA cm/sec PA 139 cm/sec AV Gradient Peak 11.65mmHg AV Mean 6.66 mmHg AV Area 1.9 cm MV Gradient Peak 8.73 mmHg MV Mean 2.09 mmHg MV Area cm COMMENTS: Streetcar Motorman: 2 SULMA MAY Bead Worker Sewing: 3 Dr. Romo TAPE# DATE OF SERVICE: 11/12/2017 Adequate 2D echo, color flow Doppler, and M-Mode. LVH is present. LV internal dimension is normal. Wall motion is normal. EF is greater than 55%. Aortic valve is tricuspid. No evidence of stenosis on Doppler interrogation. Left atrium grossly normal 4.0 cm. Mitral valve shows no prolapse. Mild MR. Right-sided chamber is grossly normal. Trace TR. TRANSINT:[id number] Voice Confirmation ID: [id number] DOCUMENT ID: [id number] 11/17/2017 Edited to correct date of service, dmm. ECHOCARDIOGRAM REPORT [id number] CALOS HAAS,DHRUV Matias MD at 0823 CC: [id number] DICTATION DATE: 11/13/17 1046 OIL FIELD LABORER: 11/13/17 [address] [facility] [address] [id number]
[~2017-11-01 07:30] MED LIST changes: +ACIDOPHILUS LAC1 CAP PO; +CARDIZEM 90 MG90 MG PO; +CATAPRES0.1 MG PO; +FLOMAX0.4 MG PO; +FUROSEMIDE20 MG PO; +GLUCOPHAGE500 MG PO; +HYDRALAZINE HC100 MG PO; +LEVAQUIN500 MG PO; +LIQUITEARS15 ML EACH EYE; +LITE COAT ASPI325 MG PO; +METOPROLOL TAR100 M1 PO; +NORMODYNE / TR300 MG PO; +OMEPRAZOLE20 M1 PO; +PREDNISONE10 MG; +PREDNISONE20 MG PO; +PROVENTIL/2.5 MG/3 M INH; +PULMICORT0.5 MG/21 INH; +SEROQUEL100 MG PO; +STOOL SOFTENER240 MG PO; +ULTRAM50 MG PO
[2017-11-01] MEDS ORDERED: PULMICORT0.5 MG/21 INH (08:31)
[2017-11-01] MEDS ORDERED: PROTONIX20 MG PO (08:34)
[2017-11-01] MEDS ORDERED: STERAPRED DS 1010 MG PO (08:36)
[2017-11-01] MEDS ORDERED: XOPENEX 0.0.63 MG/3 UPD (09:00)
[2017-11-01] MEDS ORDERED: PATANOL 0.1 % OP5 ML EACH EYE (09:01)
[2017-11-01] MEDS ORDERED: BENZONATATE200 MG PO (09:03)
[2017-11-01] MEDS ORDERED: HYDROCODONE-APA1 TAB PO (09:05)
[2017-11-01] MEDS ORDERED: GAS-X80 MG PO (09:08)
[2017-11-01 15:35] LABS: APPEARANCE HAZY (CLEAR); BILIRUBIN NEGATIVE (NEGATIVE); COLOR YELLOW (YELLOW); GLUCOSE NEGATIVE (NEGATIVE); KETONE NEGATIVE (NEGATIVE); NITRITE POSITIVE (NEGATIVE); PROTEIN TRACE mg/dL (NEGATIVE); SPECIFIC GRAVITY 1.015 (1.005-1.020); UROBILINOGEN NORMAL (NORMAL)
[2017-11-01 15:37] LABS: BACTERIA MANY /hpf (NONE SEEN); RED CELLS - URINE OCC /hpf (0-5)
[2017-11-02] VITALS (48 sets, daily range): BP systolic 139–184; BP diastolic 59–104
[2017-11-02 03:52] LABS: BASOPHILS 0.2 % (0-2); EOSINOPHILS 0.6 % (0-7); HEMATOCRIT 27.8 % (42.0-54.0); HEMOGLOBIN 8.4 g/dL (13.5-17.5); IMMATURE GRANULOCYTES 7.7 % (0-5); LYMPHOCYTES 10.8 % (15-50); MCH 25.2 pg (26.0-34.0); MCHC 30.2 g/dL (31.0-37.0); MEAN PLATELET VOLUME 9.4 fL (7.4-10.4); NEUTROPHILS 73.7 % (40-80); RBC 3.33 10x6/uL (4.20-6.10); RDW 22.6 % (11.5-14.5); WBC 13.7 10x3/uL (4.8-10.8)
[2017-11-02 03:53] LABS: MCV 83.5 fL (80.0-100.0); PLATELET COUNT 552 10x3/uL (130-400)
[2017-11-02 03:58] LABS: KETONE - SERUM SMALL mg/dL (NEGATIVE)
[2017-11-02 04:06] LABS: APTT 31.6 SECONDS (22.8-39.4); INR 1.11 (0.85-1.17); PROTIME 13.9 SECONDS (11.6-15.0)
[2017-11-02 04:20] LABS: ALBUMIN 2.2 g/dL (3.4-5.0); ALKALINE PHOSPHATASE 90 U/L (46-116); ALT (SGPT) 63 U/L (10-68); BILIRUBIN - TOTAL 0.27 mg/dL (0.2-1.3); CALCIUM 8.5 mg/dL (8.5-10.1); CARBON DIOXIDE 35.4 mmol/L (21.0-32.0); CHLORIDE - SERUM 103 mmol/L (98-107); GLUCOSE 81 mg/dL (74-106); MAGNESIUM - SERUM 1.7 mg/dL (1.8-2.4); PHOSPHOROUS 3.9 mg/dL (2.5-4.9); POTASSIUM - SERUM 3.8 mmol/L (3.5-5.1); PROTEIN - SERUM 5.4 g/dL (6.4-8.2); SODIUM 142 mmol/L (136-145); eGFR NON AFRICAN AMERICAN 81 mL/min (90-120)
[2017-11-02 04:26] LABS: CALC OSMOLALITY 282 mosm/kg (275-300); UREA NITROGEN 14 mg/dL (7-18)
[2017-11-03] VITALS (96 sets, daily range): BP systolic 112–162; BP diastolic 57–90
[2017-11-03 04:26] LABS: BASOPHILS 0.6 % (0-2); EOSINOPHILS 0.4 % (0-7); HEMATOCRIT 30.3 % (42.0-54.0); HEMOGLOBIN 9.3 g/dL (13.5-17.5); IMMATURE GRANULOCYTES 10.9 % (0-5); LYMPHOCYTES 10.6 % (15-50); MCH 25.7 pg (26.0-34.0); MCHC 30.7 g/dL (31.0-37.0); MCV 83.7 fL (80.0-100.0); MEAN PLATELET VOLUME 9.4 fL (7.4-10.4); MONOCYTES 8.5 % (2-11); PLATELET COUNT 582 10x3/uL (130-400); RBC 3.62 10x6/uL (4.20-6.10); RDW 22.8 % (11.5-14.5); WBC 13.3 10x3/uL (4.8-10.8)
[2017-11-03 04:52] LABS: ALBUMIN 2.3 g/dL (3.4-5.0); ALKALINE PHOSPHATASE 100 U/L (46-116); ALT (SGPT) 54 U/L (10-68); BILIRUBIN - TOTAL 0.37 mg/dL (0.2-1.3); CALCIUM 8.2 mg/dL (8.5-10.1); CARBON DIOXIDE 33.2 mmol/L (21.0-32.0); CHLORIDE - SERUM 105 mmol/L (98-107); CREATININE - SERUM 0.9 mg/dL (0.6-1.3); GLUCOSE 109 mg/dL (74-106); POTASSIUM - SERUM 3.5 mmol/L (3.5-5.1); PROTEIN - SERUM 5.9 g/dL (6.4-8.2); SODIUM 146 mmol/L (136-145); eGFR NON AFRICAN AMERICAN > 90 mL/min (90-120)
[2017-11-03 04:55] LABS: CALC OSMOLALITY 290 mosm/kg (275-300); UREA NITROGEN 9 mg/dL (7-18)
[2017-11-04] VITALS (42 sets, daily range): BP systolic 130–165; BP diastolic 63–73
[2017-11-04 04:20] LABS: BASOPHILS 0.4 % (0-2); EOSINOPHILS 0.3 % (0-7); HEMATOCRIT 30.2 % (42.0-54.0); HEMOGLOBIN 9.2 g/dL (13.5-17.5); IMMATURE GRANULOCYTES 10.2 % (0-5); LYMPHOCYTES 11.3 % (15-50); MCH 25.1 pg (26.0-34.0); MCHC 30.5 g/dL (31.0-37.0); MCV 82.5 fL (80.0-100.0); MEAN PLATELET VOLUME 9.3 fL (7.4-10.4); MONOCYTES 6.8 % (2-11); PLATELET COUNT 557 10x3/uL (130-400); RBC 3.66 10x6/uL (4.20-6.10); RDW 23.1 % (11.5-14.5)
[2017-11-04 04:27] LABS: WBC 18.2 10x3/uL (4.8-10.8)
[2017-11-04 04:49] LABS: ALBUMIN 2.3 g/dL (3.4-5.0); ALKALINE PHOSPHATASE 101 U/L (46-116); ALT (SGPT) 40 U/L (10-68); BILIRUBIN - TOTAL 0.36 mg/dL (0.2-1.3); CALC OSMOLALITY 290 mosm/kg (275-300); CALCIUM 8.2 mg/dL (8.5-10.1); CARBON DIOXIDE 31.5 mmol/L (21.0-32.0); CHLORIDE - SERUM 107 mmol/L (98-107); CREATININE - SERUM 0.9 mg/dL (0.6-1.3); GLUCOSE 108 mg/dL (74-106); POTASSIUM - SERUM 4.1 mmol/L (3.5-5.1); PRO BNP 590 pg/mL (0-125); SODIUM 146 mmol/L (136-145); UREA NITROGEN 9 mg/dL (7-18); eGFR NON AFRICAN AMERICAN > 90 mL/min (90-120)
[2017-11-05] VITALS (24 sets, daily range): BP systolic 121–166; BP diastolic 55–74
[2017-11-05 05:05] LABS: ALBUMIN 2.1 g/dL (3.4-5.0); ALKALINE PHOSPHATASE 109 U/L (46-116); ALT (SGPT) 33 U/L (10-68); BILIRUBIN - TOTAL 0.39 mg/dL (0.2-1.3); CALC OSMOLALITY 288 mosm/kg (275-300); CALCIUM 8.2 mg/dL (8.5-10.1); CARBON DIOXIDE 28.5 mmol/L (21.0-32.0); CHLORIDE - SERUM 108 mmol/L (98-107); CREATININE - SERUM 0.8 mg/dL (0.6-1.3); GLUCOSE 95 mg/dL (74-106); POTASSIUM - SERUM 4.6 mmol/L (3.5-5.1); PROTEIN - SERUM 5.3 g/dL (6.4-8.2); SODIUM 146 mmol/L (136-145); UREA NITROGEN 8 mg/dL (7-18); eGFR NON AFRICAN AMERICAN > 90 mL/min (90-120)
[2017-11-05 07:07] LABS: BASOPHILS 0.4 % (0-2); EOSINOPHILS 0.2 % (0-7); HEMATOCRIT 29.1 % (42.0-54.0); HEMOGLOBIN 8.9 g/dL (13.5-17.5); IMMATURE GRANULOCYTES 10.8 % (0-5); LYMPHOCYTES 9.7 % (15-50); MCH 25.1 pg (26.0-34.0); MCHC 30.6 g/dL (31.0-37.0); MCV 82.2 fL (80.0-100.0); MEAN PLATELET VOLUME 9.2 fL (7.4-10.4); NEUTROPHILS 71.9 % (40-80); PLATELET COUNT 458 10x3/uL (130-400); RBC 3.54 10x6/uL (4.20-6.10); RDW 23.1 % (11.5-14.5); WBC 17.8 10x3/uL (4.8-10.8)
[2017-11-06] VITALS (24 sets, daily range): BP systolic 99–146; BP diastolic 49–66
[2017-11-06 05:36] LABS: BASOPHILS 0.3 % (0-2); EOSINOPHILS 0.2 % (0-7); HEMATOCRIT 31.1 % (42.0-54.0); HEMOGLOBIN 9.2 g/dL (13.5-17.5); IMMATURE GRANULOCYTES 11.2 % (0-5); LYMPHOCYTES 8.7 % (15-50); MCH 25.5 pg (26.0-34.0); MCHC 29.6 g/dL (31.0-37.0); MCV 86.1 fL (80.0-100.0); MEAN PLATELET VOLUME 9.1 fL (7.4-10.4); MONOCYTES 7.9 % (2-11); NEUTROPHILS 71.7 % (40-80); PLATELET COUNT 433 10x3/uL (130-400); RBC 3.61 10x6/uL (4.20-6.10); RDW 23.5 % (11.5-14.5); WBC 20.2 10x3/uL (4.8-10.8)
[2017-11-06 05:58] LABS: ANION GAP 12.2 mmol/L (8-16); BILIRUBIN - TOTAL 0.3 mg/dL (0.2-1.3); CALCIUM 8.4 mg/dL (8.5-10.1); CARBON DIOXIDE 30.5 mmol/L (21.0-32.0); POTASSIUM - SERUM 4.7 mmol/L (3.5-5.1); PROTEIN - SERUM 6.1 g/dL (6.4-8.2)
[2017-11-06 06:00] LABS: CREATININE - SERUM 1.3 mg/dL (0.6-1.3)
[2017-11-06 13:08] LABS: ACID FAST SMEAR Negative (()); AFB SPECIMEN PROCESSING Concentration (())
[2017-11-07] VITALS (25 sets, daily range): BP systolic 92–167; BP diastolic 42–578; Ht 170.2 cm; Wt 179.1 kg
[2017-11-07 04:59] LABS: HEMATOCRIT 28.6 % (42.0-54.0); HEMOGLOBIN 8.5 g/dL (13.5-17.5); MCH 25.2 pg (26.0-34.0); MCHC 29.7 g/dL (31.0-37.0); MCV 84.9 fL (80.0-100.0); MEAN PLATELET VOLUME 9.2 fL (7.4-10.4); PLATELET COUNT 389 10x3/uL (130-400); RBC 3.37 10x6/uL (4.20-6.10); RDW 23.4 % (11.5-14.5); WBC 20.2 10x3/uL (4.8-10.8)
[2017-11-07 05:15] LABS: ALBUMIN 1.8 g/dL (3.4-5.0); ANION GAP 12.4 mmol/L (8-16); BILIRUBIN - TOTAL 0.3 mg/dL (0.2-1.3); CARBON DIOXIDE 28.8 mmol/L (21.0-32.0); PHOSPHOROUS 6.6 mg/dL (2.5-4.9); POTASSIUM - SERUM 4.2 mmol/L (3.5-5.1); PROTEIN - SERUM 5.6 g/dL (6.4-8.2); VANCOMYCIN - RANDOM 28.1 ug/mL (10.0-20.0)
[2017-11-07 05:20] LABS: CREATININE - SERUM 1.9 mg/dL (0.6-1.3)
[2017-11-07 06:34] LABS: LYMPHOCYTES 12 % (15-50); MONOCYTES 5 % (2-11); NEUTROPHILS 76 % (40-80); PLATELET ESTIMATE NORMAL
[2017-11-07 06:35] LABS: ANISOCYTOSIS OCC; TARGET CELLS OCC
[2017-11-08] VITALS (25 sets, daily range): BP systolic 104–186; BP diastolic 49–83
[2017-11-08 05:09] LABS: ALBUMIN 1.7 g/dL (3.4-5.0); BILIRUBIN - TOTAL 0.3 mg/dL (0.2-1.3); CALCIUM 8.1 mg/dL (8.5-10.1); CREATININE - SERUM 1.9 mg/dL (0.6-1.3); MAGNESIUM - SERUM 2.2 mg/dL (1.8-2.4); PHOSPHOROUS 5.8 mg/dL (2.5-4.9); PROTEIN - SERUM 5.6 g/dL (6.4-8.2); VANCOMYCIN - RANDOM 17.9 ug/mL (10.0-20.0)
[2017-11-08 06:06] LABS: BASOPHILS 0.2 % (0-2); EOSINOPHILS 0.1 % (0-7); HEMATOCRIT 27.1 % (42.0-54.0); HEMOGLOBIN 8.2 g/dL (13.5-17.5); IMMATURE GRANULOCYTES 8.4 % (0-5); LYMPHOCYTES 9.2 % (15-50); MCH 25.2 pg (26.0-34.0); MCHC 30.3 g/dL (31.0-37.0); MCV 83.1 fL (80.0-100.0); MONOCYTES 10.8 % (2-11); NEUTROPHILS 71.3 % (40-80); PLATELET COUNT 345 10x3/uL (130-400); RBC 3.26 10x6/uL (4.20-6.10); WBC 17.7 10x3/uL (4.8-10.8)
[2017-11-08 19:11] LABS: ACID FAST SMEAR Negative (()); AFB SPECIMEN PROCESSING Concentration (())
[2017-11-08 22:07] LABS: CREATININE - URINE 95.2 mg/dL (30-125); POTASSIUM - URINE 41.7 MMOL/L (12.0-62.0); PROTEIN - URINE 99.7 mg/dL (0.0-11.9)
[2017-11-08 22:11] LABS: APPEARANCE CLEAR (CLEAR); COLOR YELLOW (YELLOW); GLUCOSE NEGATIVE (NEGATIVE); NITRITE NEGATIVE (NEGATIVE); PROTEIN TRACE mg/dL (NEGATIVE); SPECIFIC GRAVITY 1.015 (1.005-1.020)
[2017-11-08 22:12] LABS: BILIRUBIN NEGATIVE (NEGATIVE); KETONE NEGATIVE (NEGATIVE); UROBILINOGEN NORMAL (NORMAL)
[2017-11-09] VITALS (24 sets, daily range): BP systolic 118–165; BP diastolic 53–75
[2017-11-09 03:55] LABS: BASOPHILS 0.2 % (0-2); EOSINOPHILS 0.1 % (0-7); HEMATOCRIT 23.7 % (42.0-54.0); HEMOGLOBIN 7.4 g/dL (13.5-17.5); IMMATURE GRANULOCYTES 5.9 % (0-5); LYMPHOCYTES 9.9 % (15-50); MCH 25.7 pg (26.0-34.0); MCHC 31.2 g/dL (31.0-37.0); MCV 82.3 fL (80.0-100.0); MEAN PLATELET VOLUME 9.4 fL (7.4-10.4); MONOCYTES 10.3 % (2-11); NEUTROPHILS 73.6 % (40-80); PLATELET COUNT 427 10x3/uL (130-400); RBC 2.88 10x6/uL (4.20-6.10); RDW 23.3 % (11.5-14.5); WBC 27.1 10x3/uL (4.8-10.8)
[2017-11-09 04:43] LABS: BASOPHILS 0.3 % (0-2); EOSINOPHILS 0.1 % (0-7); HEMATOCRIT 27.9 % (42.0-54.0); HEMOGLOBIN 8.6 g/dL (13.5-17.5); IMMATURE GRANULOCYTES 6.2 % (0-5); LYMPHOCYTES 9.3 % (15-50); MCH 25.4 pg (26.0-34.0); MCHC 30.8 g/dL (31.0-37.0); MCV 82.3 fL (80.0-100.0); MEAN PLATELET VOLUME 9.1 fL (7.4-10.4); MONOCYTES 10.5 % (2-11); NEUTROPHILS 73.6 % (40-80); PLATELET COUNT 344 10x3/uL (130-400); RBC 3.39 10x6/uL (4.20-6.10); RDW 23.1 % (11.5-14.5)
[2017-11-09 04:54] LABS: WBC 19.9 10x3/uL (4.8-10.8)
[2017-11-09 05:03] LABS: ALBUMIN 1.6 g/dL (3.4-5.0); ANION GAP 10.7 mmol/L (8-16); BILIRUBIN - TOTAL 0.36 mg/dL (0.2-1.3); CALCIUM 8.4 mg/dL (8.5-10.1); CARBON DIOXIDE 29.3 mmol/L (21.0-32.0); CREATININE - SERUM 1.9 mg/dL (0.6-1.3); MAGNESIUM - SERUM 2.7 mg/dL (1.8-2.4); PHOSPHOROUS 5.9 mg/dL (2.5-4.9); PROTEIN - SERUM 5.8 g/dL (6.4-8.2)
[2017-11-09 13:17] LABS: FUNGUS STAIN Final report (())
[2017-11-09 13:17] LABS: FUNGUS STAIN Final report (())
[2017-11-10] VITALS (24 sets, daily range): BP systolic 121–167; BP diastolic 53–523
[2017-11-10 03:54] LABS: BASOPHILS 0.1 % (0-2); EOSINOPHILS 0.2 % (0-7); HEMATOCRIT 26.1 % (42.0-54.0); IMMATURE GRANULOCYTES 4.5 % (0-5); LYMPHOCYTES 8.3 % (15-50); MCH 25.2 pg (26.0-34.0); MCHC 30.7 g/dL (31.0-37.0); MCV 82.1 fL (80.0-100.0); MEAN PLATELET VOLUME 9.5 fL (7.4-10.4); MONOCYTES 8.2 % (2-11); NEUTROPHILS 78.7 % (40-80); PLATELET COUNT 361 10x3/uL (130-400); RBC 3.18 10x6/uL (4.20-6.10); RDW 22.9 % (11.5-14.5); WBC 20.5 10x3/uL (4.8-10.8)
[2017-11-10 04:08] LABS: ANION GAP 12.2 mmol/L (8-16); CALCIUM 8.5 mg/dL (8.5-10.1); CARBON DIOXIDE 27.8 mmol/L (21.0-32.0); MAGNESIUM - SERUM 2.7 mg/dL (1.8-2.4); PHOSPHOROUS 6.2 mg/dL (2.5-4.9); VANCOMYCIN - RANDOM 21.7 ug/mL (10.0-20.0)
[2017-11-10 14:26] LABS: OSMOLALITY - URINE 407 (())
[2017-11-10 20:16] LABS: HEMATOCRIT 24.8 % (42.0-54.0); HEMOGLOBIN 7.7 g/dL (13.5-17.5)
[2017-11-11] VITALS (24 sets, daily range): BP systolic 128–171; BP diastolic 63–94
[2017-11-11 05:03] LABS: BASOPHILS 0.2 % (0-2); EOSINOPHILS 0 % (0-7); HEMATOCRIT 24.9 % (42.0-54.0); HEMOGLOBIN 7.7 g/dL (13.5-17.5); IMMATURE GRANULOCYTES 5.4 % (0-5); LYMPHOCYTES 6.2 % (15-50); MCH 25.2 pg (26.0-34.0); MCHC 30.9 g/dL (31.0-37.0); MCV 81.4 fL (80.0-100.0); MEAN PLATELET VOLUME 9.7 fL (7.4-10.4); NEUTROPHILS 84.2 % (40-80); RBC 3.06 10x6/uL (4.20-6.10); RDW 22.9 % (11.5-14.5)
[2017-11-11 05:04] LABS: PLATELET COUNT 448 10x3/uL (130-400)
[2017-11-11 05:24] LABS: ALBUMIN 1.7 g/dL (3.4-5.0); ANION GAP 15.2 mmol/L (8-16); BILIRUBIN - TOTAL 0.4 mg/dL (0.2-1.3); CALCIUM 8.4 mg/dL (8.5-10.1); CARBON DIOXIDE 26.7 mmol/L (21.0-32.0); PROTEIN - SERUM 5.6 g/dL (6.4-8.2)
[2017-11-11 05:33] LABS: POTASSIUM - SERUM 4.9 mmol/L (3.5-5.1)
[2017-11-11 05:58] LABS: C-REACTIVE PROTEIN 30.1 mg/dL (0.0-0.9)
[2017-11-12] VITALS (24 sets, daily range): BP systolic 137–197; BP diastolic 69–100
[2017-11-12 05:20] LABS: BASOPHILS 0.1 % (0-2); EOSINOPHILS 0 % (0-7); HEMATOCRIT 29.1 % (42.0-54.0); HEMOGLOBIN 9.2 g/dL (13.5-17.5); IMMATURE GRANULOCYTES 5.4 % (0-5); LYMPHOCYTES 6.5 % (15-50); MCH 25.7 pg (26.0-34.0); MCHC 31.6 g/dL (31.0-37.0); MCV 81.3 fL (80.0-100.0); MEAN PLATELET VOLUME 9.6 fL (7.4-10.4); MONOCYTES 4.4 % (2-11); NEUTROPHILS 83.6 % (40-80); PLATELET COUNT 480 10x3/uL (130-400); RBC 3.58 10x6/uL (4.20-6.10); RDW 21.4 % (11.5-14.5); WBC 15.6 10x3/uL (4.8-10.8)
[2017-11-12 05:51] LABS: ALBUMIN 1.9 g/dL (3.4-5.0); ANION GAP 15.7 mmol/L (8-16); BILIRUBIN - TOTAL 0.3 mg/dL (0.2-1.3); CALCIUM 8.7 mg/dL (8.5-10.1); CREATININE - SERUM 1.8 mg/dL (0.6-1.3); MAGNESIUM - SERUM 2.7 mg/dL (1.8-2.4); PHOSPHOROUS 6.2 mg/dL (2.5-4.9); POTASSIUM - SERUM 4.7 mmol/L (3.5-5.1); PROTEIN - SERUM 6.8 g/dL (6.4-8.2); VANCOMYCIN - RANDOM 17.8 ug/mL (10.0-20.0)
[2017-11-13] VITALS (24 sets, daily range): BP systolic 137–194; BP diastolic 72–94
[2017-11-13 05:17] LABS: BASOPHILS 0.1 % (0-2); EOSINOPHILS 0 % (0-7); HEMATOCRIT 30.1 % (42.0-54.0); HEMOGLOBIN 9.6 g/dL (13.5-17.5); IMMATURE GRANULOCYTES 5.3 % (0-5); LYMPHOCYTES 5.2 % (15-50); MCH 25.9 pg (26.0-34.0); MCHC 31.9 g/dL (31.0-37.0); MCV 81.4 fL (80.0-100.0); MONOCYTES 3.7 % (2-11); NEUTROPHILS 85.7 % (40-80); PLATELET COUNT 472 10x3/uL (130-400); RDW 21.3 % (11.5-14.5); WBC 16.5 10x3/uL (4.8-10.8)
[2017-11-13 05:36] LABS: ANION GAP 14.1 mmol/L (8-16); BILIRUBIN - TOTAL 0.43 mg/dL (0.2-1.3); CALCIUM 9.1 mg/dL (8.5-10.1); CARBON DIOXIDE 26.5 mmol/L (21.0-32.0); CREATININE - SERUM 1.5 mg/dL (0.6-1.3); POTASSIUM - SERUM 4.6 mmol/L (3.5-5.1); PROTEIN - SERUM 7.2 g/dL (6.4-8.2); VANCOMYCIN - RANDOM 12.8 ug/mL (10.0-20.0)
[2017-11-13 05:37] LABS: ALBUMIN 2.7 g/dL (3.4-5.0)
[2017-11-14] VITALS (24 sets, daily range): BP systolic 110–183; BP diastolic 44–83
[2017-11-14 05:17] LABS: BASOPHILS 0.1 % (0-2); EOSINOPHILS 0 % (0-7); IMMATURE GRANULOCYTES 5.4 % (0-5); LYMPHOCYTES 5.1 % (15-50); MCH 25.6 pg (26.0-34.0); MCV 82.6 fL (80.0-100.0); MEAN PLATELET VOLUME 9.2 fL (7.4-10.4); MONOCYTES 5.2 % (2-11); NEUTROPHILS 84.2 % (40-80); PLATELET COUNT 502 10x3/uL (130-400); RBC 3.51 10x6/uL (4.20-6.10); RDW 21.6 % (11.5-14.5); WBC 18.4 10x3/uL (4.8-10.8)
[2017-11-14 05:21] LABS: ALBUMIN 2.9 g/dL (3.4-5.0); ANION GAP 12.3 mmol/L (8-16); BILIRUBIN - TOTAL 0.5 mg/dL (0.2-1.3); CALCIUM 8.6 mg/dL (8.5-10.1); CARBON DIOXIDE 27.3 mmol/L (21.0-32.0); CREATININE - SERUM 1.5 mg/dL (0.6-1.3); POTASSIUM - SERUM 4.6 mmol/L (3.5-5.1); VANCOMYCIN - RANDOM 13.2 ug/mL (10.0-20.0)
[2017-11-14 09:09] LABS: ANTI-GLOMERULAR BASMENT MEMBRN 4 units (0-20)
[2017-11-14 11:13] LABS: ANA REFLEX - DIRECT Negative (Negative)
[2017-11-14 15:20] LABS: FUNGUS CULTURE RESULT 1 Candida albicans (())
[2017-11-14 15:20] LABS: FUNGUS CULTURE RESULT 1 Candida albicans (())
[2017-11-14 15:38] LABS: BASOPHILS 0.2 % (0-2); EOSINOPHILS 0 % (0-7); HEMATOCRIT 24.4 % (42.0-54.0); HEMOGLOBIN 7.7 g/dL (13.5-17.5); IMMATURE GRANULOCYTES 5.5 % (0-5); LYMPHOCYTES 4.6 % (15-50); MCH 25.8 pg (26.0-34.0); MCHC 31.6 g/dL (31.0-37.0); MCV 81.9 fL (80.0-100.0); MEAN PLATELET VOLUME 9.5 fL (7.4-10.4); MONOCYTES 9.3 % (2-11); NEUTROPHILS 80.4 % (40-80); PLATELET COUNT 454 10x3/uL (130-400); RBC 2.98 10x6/uL (4.20-6.10); RDW 21.4 % (11.5-14.5); WBC 17.5 10x3/uL (4.8-10.8)
[2017-11-14 15:43] LABS: APTT 36.3 SECONDS (22.8-39.4); INR 1.2 (0.85-1.17); PROTIME 14.8 SECONDS (11.6-15.0)
[2017-11-14 17:11] LABS: ANCA - ANTIMYELOPEROXIDASE <9.0 U/mL (0.0-9.0); ANCA - ANTIPROTEINASE 3 <3.5 U/mL (0.0-3.5); ANCA - ATYPICAL <1:20 titer (Neg:<1:20); ANCA - CYTOPLASMIC <1:20 titer (Neg:<1:20); ANCA - PERINUCLEAR <1:20 titer (Neg:<1:20)
[2017-11-15] VITALS (24 sets, daily range): BP systolic 116–215; BP diastolic 58–102
[2017-11-15 00:04] LABS: HEMATOCRIT 28.7 % (42.0-54.0)
[2017-11-15 00:07] LABS: HEMOGLOBIN 9.3 g/dL (13.5-17.5)
[2017-11-15 07:02] LABS: BASOPHILS 0.1 % (0-2); EOSINOPHILS 0 % (0-7); HEMATOCRIT 28.7 % (42.0-54.0); LYMPHOCYTES 7.2 % (15-50); MCH 25.7 pg (26.0-34.0); MCHC 31.4 g/dL (31.0-37.0); MEAN PLATELET VOLUME 9.7 fL (7.4-10.4); MONOCYTES 6.7 % (2-11); PLATELET COUNT 457 10x3/uL (130-400); RDW 20.1 % (11.5-14.5)
[2017-11-15 07:28] LABS: ANION GAP 16.4 mmol/L (8-16); CALCIUM 8.5 mg/dL (8.5-10.1); CARBON DIOXIDE 24.3 mmol/L (21.0-32.0); MAGNESIUM - SERUM 2.6 mg/dL (1.8-2.4); POTASSIUM - SERUM 4.7 mmol/L (3.5-5.1)
[2017-11-15 07:35] LABS: APTT 31.2 SECONDS (22.8-39.4); INR 1.1 (0.85-1.17); PROTIME 13.8 SECONDS (11.6-15.0)
[2017-11-15 13:17] LABS: CKMB 0.7 U/L (0.0-3.6); PRO BNP 7625 pg/mL (0-125)
[2017-11-15 13:20] LABS: CREATINE KINASE 53 UL (21-232)
[2017-11-15 13:44] LABS: HEMATOCRIT 27.6 % (42.0-54.0); HEMOGLOBIN 9.9 g/dL (13.5-17.5)
[2017-11-15 16:12] LABS: ACID FAST SMEAR Negative (()); AFB SPECIMEN PROCESSING Concentration (())
[2017-11-15 23:03] LABS: HEMOGLOBIN 11.8 g/dL (13.5-17.5)
[2017-11-15 23:10] LABS: HEMATOCRIT 35.5 % (42.0-54.0)
[2017-11-16] VITALS (24 sets, daily range): BP systolic 102–205; BP diastolic 56–102
[2017-11-16 05:32] LABS: BASOPHILS 0.1 % (0-2); EOSINOPHILS 0.1 % (0-7); HEMATOCRIT 33.3 % (42.0-54.0); HEMOGLOBIN 10.9 g/dL (13.5-17.5); IMMATURE GRANULOCYTES 5.7 % (0-5); LYMPHOCYTES 4.2 % (15-50); MCH 26.7 pg (26.0-34.0); MCHC 32.7 g/dL (31.0-37.0); MCV 81.4 fL (80.0-100.0); MEAN PLATELET VOLUME 10.1 fL (7.4-10.4); MONOCYTES 5.3 % (2-11); NEUTROPHILS 84.6 % (40-80); PLATELET COUNT 479 10x3/uL (130-400); RBC 4.09 10x6/uL (4.20-6.10); RDW 19.8 % (11.5-14.5); WBC 19.6 10x3/uL (4.8-10.8)
[2017-11-16 05:48] LABS: ANION GAP 17.1 mmol/L (8-16); CALCIUM 8.6 mg/dL (8.5-10.1); CARBON DIOXIDE 23.4 mmol/L (21.0-32.0); CREATININE - SERUM 1.8 mg/dL (0.6-1.3); MAGNESIUM - SERUM 2.3 mg/dL (1.8-2.4); POTASSIUM - SERUM 4.5 mmol/L (3.5-5.1)
[2017-11-16 10:20] LABS: FUNGUS STAIN Final report (())
[2017-11-16 12:35] LABS: HEMATOCRIT 27.9 % (42.0-54.0)
[2017-11-16 17:49] LABS: HEMOGLOBIN 10.4 g/dL (13.5-17.5)
[2017-11-16 23:31] LABS: HEMATOCRIT 32.8 % (42.0-54.0); HEMOGLOBIN 10.8 g/dL (13.5-17.5)
[2017-11-17] VITALS (25 sets, daily range): BP systolic 134–183; BP diastolic 62–96
[2017-11-17 05:05] LABS: HEMATOCRIT 33.5 % (42.0-54.0); HEMOGLOBIN 10.9 g/dL (13.5-17.5); MCH 26.5 pg (26.0-34.0); MCHC 32.5 g/dL (31.0-37.0); MCV 81.5 fL (80.0-100.0); MEAN PLATELET VOLUME 9.7 fL (7.4-10.4); PLATELET COUNT 460 10x3/uL (130-400); RBC 4.11 10x6/uL (4.20-6.10); WBC 21.3 10x3/uL (4.8-10.8)
[2017-11-17 05:19] LABS: ANION GAP 17.6 mmol/L (8-16); CALCIUM 9.1 mg/dL (8.5-10.1); CARBON DIOXIDE 23.3 mmol/L (21.0-32.0); CREATININE - SERUM 1.9 mg/dL (0.6-1.3); MAGNESIUM - SERUM 2.5 mg/dL (1.8-2.4); POTASSIUM - SERUM 4.9 mmol/L (3.5-5.1)
[2017-11-17 05:51] LABS: EOSINOPHILS 1 % (0-7); LYMPHOCYTES 9 % (15-50); MONOCYTES 4 % (2-11); NEUTROPHILS 82 % (40-80)
[2017-11-17 05:52] LABS: PLATELET ESTIMATE NORMAL
[2017-11-17 11:37] LABS: HEMATOCRIT 29.6 % (42.0-54.0); HEMOGLOBIN 10.8 g/dL (13.5-17.5)
[2017-11-17 17:48] LABS: HEMATOCRIT 31.1 % (42.0-54.0); HEMOGLOBIN 11.6 g/dL (13.5-17.5)
[2017-11-17 23:03] LABS: HEMATOCRIT 31.8 % (42.0-54.0); HEMOGLOBIN 10.5 g/dL (13.5-17.5)
[2017-11-18] VITALS (24 sets, daily range): BP systolic 114–178; BP diastolic 64–91
[2017-11-18 04:59] LABS: BASOPHILS 0.1 % (0-2); EOSINOPHILS 0.1 % (0-7); HEMATOCRIT 31.5 % (42.0-54.0); HEMOGLOBIN 10.3 g/dL (13.5-17.5); IMMATURE GRANULOCYTES 7.3 % (0-5); LYMPHOCYTES 5.3 % (15-50); MCH 26.3 pg (26.0-34.0); MCHC 32.7 g/dL (31.0-37.0); MCV 80.6 fL (80.0-100.0); MEAN PLATELET VOLUME 9.8 fL (7.4-10.4); MONOCYTES 4.2 % (2-11); PLATELET COUNT 470 10x3/uL (130-400); RBC 3.91 10x6/uL (4.20-6.10); RDW 20.1 % (11.5-14.5); WBC 19.4 10x3/uL (4.8-10.8)
[2017-11-18 05:20] LABS: ANION GAP 20.6 mmol/L (8-16); CALCIUM 8.8 mg/dL (8.5-10.1); CARBON DIOXIDE 22.1 mmol/L (21.0-32.0); CREATININE - SERUM 1.9 mg/dL (0.6-1.3); MAGNESIUM - SERUM 2.4 mg/dL (1.8-2.4); POTASSIUM - SERUM 4.7 mmol/L (3.5-5.1)
[2017-11-19] VITALS (25 sets, daily range): BP systolic 127–206; BP diastolic 63–108
[2017-11-19 04:21] LABS: BASOPHILS 0.1 % (0-2); EOSINOPHILS 0 % (0-7); HEMOGLOBIN 11.4 g/dL (13.5-17.5); IMMATURE GRANULOCYTES 7.4 % (0-5); LYMPHOCYTES 3.5 % (15-50); MCH 26.5 pg (26.0-34.0); MCHC 32.6 g/dL (31.0-37.0); MCV 81.4 fL (80.0-100.0); MEAN PLATELET VOLUME 9.8 fL (7.4-10.4); PLATELET COUNT 519 10x3/uL (130-400); RDW 20.3 % (11.5-14.5); WBC 22.4 10x3/uL (4.8-10.8)
[2017-11-19 04:45] LABS: ANION GAP 21.1 mmol/L (8-16); CARBON DIOXIDE 22.4 mmol/L (21.0-32.0); CREATININE - SERUM 2.1 mg/dL (0.6-1.3); MAGNESIUM - SERUM 2.4 mg/dL (1.8-2.4); POTASSIUM - SERUM 4.5 mmol/L (3.5-5.1); VANCOMYCIN - RANDOM 22.1 ug/mL (10.0-20.0)
[2017-11-20] VITALS (24 sets, daily range): BP systolic 94–152; BP diastolic 53–77
[2017-11-20 05:10] LABS: BASOPHILS 0.2 % (0-2); EOSINOPHILS 0 % (0-7); IMMATURE GRANULOCYTES 5.5 % (0-5); LYMPHOCYTES 3.8 % (15-50); MCH 26.5 pg (26.0-34.0); MCHC 32.6 g/dL (31.0-37.0); MCV 81.2 fL (80.0-100.0); MEAN PLATELET VOLUME 9.8 fL (7.4-10.4); MONOCYTES 4.5 % (2-11); RDW 20.3 % (11.5-14.5)
[2017-11-20 05:28] LABS: HEMATOCRIT 27.6 % (42.0-54.0); PLATELET COUNT 393 10x3/uL (130-400); WBC 15.3 10x3/uL (4.8-10.8)
[2017-11-20 05:42] LABS: ALBUMIN 3.3 g/dL (3.4-5.0); ANION GAP 18.9 mmol/L (8-16); BILIRUBIN - TOTAL 0.58 mg/dL (0.2-1.3); CALCIUM 8.8 mg/dL (8.5-10.1); CARBON DIOXIDE 21.9 mmol/L (21.0-32.0); CREATININE - SERUM 2.2 mg/dL (0.6-1.3); MAGNESIUM - SERUM 2.5 mg/dL (1.8-2.4); POTASSIUM - SERUM 4.8 mmol/L (3.5-5.1); PROTEIN - SERUM 6.1 g/dL (6.4-8.2); VANCOMYCIN - RANDOM 16.6 ug/mL (10.0-20.0)
[2017-11-21] VITALS (24 sets, daily range): BP systolic 95–164; BP diastolic 53–79
[2017-11-21 05:23] LABS: BASOPHILS 0.2 % (0-2); EOSINOPHILS 0.1 % (0-7); HEMOGLOBIN 9.1 g/dL (13.5-17.5); IMMATURE GRANULOCYTES 6.7 % (0-5); LYMPHOCYTES 4.6 % (15-50); MCH 26.5 pg (26.0-34.0); MCHC 32.5 g/dL (31.0-37.0); MCV 81.6 fL (80.0-100.0); MEAN PLATELET VOLUME 9.6 fL (7.4-10.4); MONOCYTES 5.2 % (2-11); NEUTROPHILS 83.2 % (40-80); PLATELET COUNT 368 10x3/uL (130-400); RBC 3.43 10x6/uL (4.20-6.10); RDW 20.2 % (11.5-14.5); WBC 18.5 10x3/uL (4.8-10.8)
[2017-11-21 05:40] LABS: ALBUMIN 3.7 g/dL (3.4-5.0); BILIRUBIN - TOTAL 0.71 mg/dL (0.2-1.3); CALCIUM 8.7 mg/dL (8.5-10.1); CARBON DIOXIDE 18.1 mmol/L (21.0-32.0); MAGNESIUM - SERUM 2.5 mg/dL (1.8-2.4); PROTEIN - SERUM 6.6 g/dL (6.4-8.2); VANCOMYCIN - RANDOM 19.4 ug/mL (10.0-20.0)
[2017-11-21 05:41] LABS: ANION GAP 25.6 mmol/L (8-16); POTASSIUM - SERUM 5.7 mmol/L (3.5-5.1)
[2017-11-21 11:13] LABS: FUNGUS MYCOLOGY CULTURE Preliminary report (())
[2017-11-21 14:03] LABS: CREATININE - URINE 104.1 mg/dL (30-125)
[2017-11-21 14:04] LABS: PRO/CRE RATIO URINE 2.4 mg/g; PROTEIN - URINE 253.9 mg/dL (0.0-11.9)
[2017-11-21 14:35] LABS: APPEARANCE CLOUDY (CLEAR); BILIRUBIN NEGATIVE (NEGATIVE); COLOR YELLOW (YELLOW); GLUCOSE NEGATIVE (NEGATIVE); KETONE NEGATIVE (NEGATIVE); NITRITE NEGATIVE (NEGATIVE); PROTEIN 2+ mg/dL (NEGATIVE); UROBILINOGEN NORMAL (NORMAL)
[2017-11-21 14:37] LABS: BACTERIA MANY /hpf (NONE SEEN); MUCUS <1+ /lpf (NONE SEEN); WHITE CELLS - URINE 0-5 /hpf (0-5)
[2017-11-21 14:38] LABS: AMORPHOUS SEDIMENT <1+ /lpf (NONE SEEN)
[2017-11-21 14:39] LABS: CALCIUM OXALATE CRYSTALS OCC /hpf (NONE SEEN)
[2017-11-21 14:59] LABS: ERYTHROCYTE SEDIMENTATION RATE 20 mm/hr (0-20)
[2017-11-22] VITALS (15 sets, daily range): BP systolic 66–173; BP diastolic 25–89
[2017-11-22 06:08] LABS: BASOPHILS 0.1 % (0-2); EOSINOPHILS 0 % (0-7); HEMATOCRIT 31.2 % (42.0-54.0); HEMOGLOBIN 10.2 g/dL (13.5-17.5); IMMATURE GRANULOCYTES 8.6 % (0-5); LYMPHOCYTES 3.4 % (15-50); MCH 26.5 pg (26.0-34.0); MCHC 32.7 g/dL (31.0-37.0); MEAN PLATELET VOLUME 9.9 fL (7.4-10.4); MONOCYTES 8.4 % (2-11); NEUTROPHILS 79.5 % (40-80); PLATELET COUNT 399 10x3/uL (130-400); RBC 3.85 10x6/uL (4.20-6.10); RDW 20.9 % (11.5-14.5); WBC 21.3 10x3/uL (4.8-10.8)
[2017-11-22 06:13] LABS: ALBUMIN 3.6 g/dL (3.4-5.0); BILIRUBIN - TOTAL 0.8 mg/dL (0.2-1.3); CALCIUM 8.4 mg/dL (8.5-10.1); CARBON DIOXIDE 15.8 mmol/L (21.0-32.0); CREATININE - SERUM 3.7 mg/dL (0.6-1.3); MAGNESIUM - SERUM 2.6 mg/dL (1.8-2.4); POTASSIUM - SERUM 5.8 mmol/L (3.5-5.1); PROTEIN - SERUM 6.6 g/dL (6.4-8.2); VANCOMYCIN - RANDOM 19.5 ug/mL (10.0-20.0)
[2017-11-22 10:19] LABS: FUNGUS CULTURE RESULT 1 Candida albicans (())
[2017-11-22 15:24] LABS: SPE - A/G RATIO 1.5 (0.7-1.7); SPE - ALBUMIN 3.6 g/dL (2.9-4.4); SPE - ALPHA-1 GLOBULIN 0.2 g/dL (0.0-0.4); SPE - ALPHA-2 GLOBULIN 0.8 g/dL (0.4-1.0); SPE - BETA GLOBULIN 0.9 g/dL (0.7-1.3); SPE - GAMMA GLOBULIN 0.5 g/dL (0.4-1.8); SPE - M-SPIKE Not Observed g/dL (Not Observed)
[2017-11-23 10:19] LABS: UPE RAND - ALBUMIN 61.9 % (()); UPE RAND - ALPHA 1 GLOBULIN 11.9 % (()); UPE RAND - ALPHA 2 GLOBULIN 12.9 % (()); UPE RAND - BETA GLOBULIN 1.7 % (()); UPE RAND - GAMMA GLOBULIN 11.7 % (())
[2017-12-05 11:12] LABS: FUNGUS MYCOLOGY CULTURE Final report (())
[2017-12-05 11:12] LABS: FUNGUS MYCOLOGY CULTURE Final report (())
== END 2017-11-22 19:24 | DRG 207 ==
LOC: D.ICU 07:30 → UNDOADMIN 08:01 → D.ICU 08:02
PROVIDERS: Family Medicine; Internal Medicine Cardiovascular Disease; Internal Medicine Nephrology; Internal Medicine Pulmonary Disease; Student in an Organized Health Care Education/Training Program
PROC: 02HV33Z Insertion of Infusion Device into Superior Vena Cava, Percutaneous Approach (ICD-10-PCS; principal; 2017-11-01)
PROC: 5A1955Z Respiratory Ventilation, Greater than 96 Consecutive Hours (ICD-10-PCS; 2017-11-01)
PROC: B548ZZA Ultrasonography of Superior Vena Cava, Guidance (ICD-10-PCS; 2017-11-01)
PROC: 0BD38ZX Extraction of Right Main Bronchus, Via Natural or Artificial Opening Endoscopic, Diagnostic (ICD-10-PCS; 2017-11-04)
PROC: 0BD68ZX Extraction of Right Lower Lobe Bronchus, Via Natural or Artificial Opening Endoscopic, Diagnostic (ICD-10-PCS; 2017-11-07)
PROC: 0BD48ZX Extraction of Right Upper Lobe Bronchus, Via Natural or Artificial Opening Endoscopic, Diagnostic (ICD-10-PCS; 2017-11-07)
PROC: 0BD58ZX Extraction of Right Middle Lobe Bronchus, Via Natural or Artificial Opening Endoscopic, Diagnostic (ICD-10-PCS; 2017-11-07)
PROC: 0BD38ZX Extraction of Right Main Bronchus, Via Natural or Artificial Opening Endoscopic, Diagnostic (ICD-10-PCS; 2017-11-07)
PROC: 0BD28ZX Extraction of Carina, Via Natural or Artificial Opening Endoscopic, Diagnostic (ICD-10-PCS; 2017-11-12)
PROC: 0BD48ZX Extraction of Right Upper Lobe Bronchus, Via Natural or Artificial Opening Endoscopic, Diagnostic (ICD-10-PCS; 2017-11-12)
PROC: 0BD88ZX Extraction of Left Upper Lobe Bronchus, Via Natural or Artificial Opening Endoscopic, Diagnostic (ICD-10-PCS; 2017-11-12)
PROC: 0BD18ZX Extraction of Trachea, Via Natural or Artificial Opening Endoscopic, Diagnostic (ICD-10-PCS; 2017-11-12)
PROC: 0BD58ZX Extraction of Right Middle Lobe Bronchus, Via Natural or Artificial Opening Endoscopic, Diagnostic (ICD-10-PCS; 2017-11-12)
PROC: 0BD38ZX Extraction of Right Main Bronchus, Via Natural or Artificial Opening Endoscopic, Diagnostic (ICD-10-PCS; 2017-11-12)
PROC: 0BD78ZX Extraction of Left Main Bronchus, Via Natural or Artificial Opening Endoscopic, Diagnostic (ICD-10-PCS; 2017-11-12)
PROC: 0BD68ZX Extraction of Right Lower Lobe Bronchus, Via Natural or Artificial Opening Endoscopic, Diagnostic (ICD-10-PCS; 2017-11-12)
PROC: 0BDB8ZX Extraction of Left Lower Lobe Bronchus, Via Natural or Artificial Opening Endoscopic, Diagnostic (ICD-10-PCS; 2017-11-12)
PROC: 0BD98ZX Extraction of Lingula Bronchus, Via Natural or Artificial Opening Endoscopic, Diagnostic (ICD-10-PCS; 2017-11-12)
DX: J69.0 Pneumonitis due to inhalation of food and vomit (principal); J96.22 Acute and chronic respiratory failure with hypercapnia; J96.21 Acute and chronic respiratory failure with hypoxia; A41.9 Sepsis, unspecified organism; N39.0 Urinary tract infection, site not specified; J98.11 Atelectasis; N17.9 Acute kidney failure, unspecified; T17.590A Other foreign object in bronchus causing asphyxiation, initial encounter; G72.81 Critical illness myopathy; I82.611 Acute embolism and thrombosis of superficial veins of right upper extremity; I10 Essential (primary) hypertension; I48.91 Unspecified atrial fibrillation; J15.212 Pneumonia due to Methicillin resistant Staphylococcus aureus; I08.1 Rheumatic disorders of both mitral and tricuspid valves; B96.20 Unspecified Escherichia coli [E. coli] as the cause of diseases classified elsewhere; D64.9 Anemia, unspecified; J15.5 Pneumonia due to Escherichia coli; T68.XXXA Hypothermia, initial encounter; E66.01 Morbid (severe) obesity due to excess calories; I16.0 Hypertensive urgency; R00.1 Bradycardia, unspecified